=== PATIENT | female | born 1940 | race Caucasian/White ===

== ENCOUNTER → 2019-05-27 09:35 | Outpatient (BNVA) | payer MEDICARE, OTHER, SELFPAY | PROVIDERS: Family Provider Nurse Practitioner; PCP Nurse Practitioner; Visit Provider Nurse Practitioner | DX: I10 Essential (primary) hypertension (principal); F32.9 Major depressive disorder, single episode, unspecified; F41.9 Anxiety disorder, unspecified | CPT/HCPCS: 80053; 82607; 84443 ==

== ENCOUNTER → 2019-10-01 11:42 | Outpatient (BNVA) | payer MEDICARE, OTHER, SELFPAY | PROVIDERS: Family Provider Nurse Practitioner; PCP Nurse Practitioner; Visit Provider Nurse Practitioner | DX: I10 Essential (primary) hypertension (principal); F41.9 Anxiety disorder, unspecified; I49.9 Cardiac arrhythmia, unspecified | CPT/HCPCS: 80053; 80061; 85025 ==

== ENCOUNTER → 2019-12-14 15:19 | Outpatient (BNVA) | payer MEDICARE, OTHER, SELFPAY | PROVIDERS: Family Provider Nurse Practitioner; PCP Nurse Practitioner; Visit Provider Nurse Practitioner | DX: I10 Essential (primary) hypertension (principal); E78.5 Hyperlipidemia, unspecified; F32.9 Major depressive disorder, single episode, unspecified; F41.9 Anxiety disorder, unspecified; I49.9 Cardiac arrhythmia, unspecified; R41.3 Other amnesia; M79.10 Myalgia, unspecified site | CPT/HCPCS: 80053; 80061; 81000; 84443; 85025 ==

== ENCOUNTER → 2019-12-16 09:55 | Outpatient (BNVA) | payer MEDICARE, OTHER, SELFPAY | PROVIDERS: Family Provider Nurse Practitioner; PCP Nurse Practitioner; Visit Provider Nurse Practitioner | DX: M79.10 Myalgia, unspecified site (principal); I10 Essential (primary) hypertension; R41.3 Other amnesia; I49.9 Cardiac arrhythmia, unspecified; F41.9 Anxiety disorder, unspecified; M47.896 Other spondylosis, lumbar region | CPT/HCPCS: 72100; 73522; 82607 ==

== ENCOUNTER → 2020-03-18 13:48 | Outpatient (BNVA) | payer MEDICARE, OTHER, SELFPAY | PROVIDERS: Family Provider Nurse Practitioner; PCP Nurse Practitioner; Visit Provider Nurse Practitioner | DX: I10 Essential (primary) hypertension (principal); I49.9 Cardiac arrhythmia, unspecified; R41.3 Other amnesia; F41.9 Anxiety disorder, unspecified | CPT/HCPCS: 80053; 80061; 84443; 85025 ==

== ENCOUNTER → 2020-04-06 16:33 | Outpatient (BNVA) | payer MEDICARE, OTHER, SELFPAY | PROVIDERS: Family Provider Nurse Practitioner; PCP Nurse Practitioner; Visit Provider Nurse Practitioner Family | DX: S99.921A Unspecified injury of right foot, initial encounter (principal); M79.671 Pain in right foot; S99.911A Unspecified injury of right ankle, initial encounter; M25.571 Pain in right ankle and joints of right foot; W19.XXXA Unspecified fall, initial encounter | CPT/HCPCS: 73610; 73630 ==

== ENCOUNTER 2020-04-14 14:33 | Outpatient (CLI) | payer MEDICARE, OTHER, SELFPAY | END 2020-04-14 14:34 | disposition home or self-care (01) | LOC: SPT 14:35 | PROVIDERS: Family Provider Nurse Practitioner; PCP Nurse Practitioner; Visit Provider Orthopaedic Surgery | DX: Z46.89 Encounter for fitting and adjustment of other specified devices (principal); S82.831D Other fracture of upper and lower end of right fibula, subsequent encounter for closed fracture with routine healing; X58.XXXD Exposure to other specified factors, subsequent encounter | CPT/HCPCS: 97760; L4361 ==

== ENCOUNTER 2020-04-23 13:16 | Emergency (ER) | payer MEDICARE, OTHER, SELFPAY ==
[2020-04-23 13:18] VITALS: BP 218/103; PULSE 72; RESP 18; TEMP 37.2; O2SAT 96; BMI 29.2
--- NOTE | 2020-04-23 13:21 | W.ED.LOWEXIN ---
HPI - Extremity Injury (Lower) General: Chief Complaint: Extremity Injury, Lower Stated Complaint: RLE SWELLING/STEPPED IN HOLE 3 WKS AGO Time Seen by Provider: 04/23/20 13:21 Source: patient Mode of arrival: ambulatory Limitations: no limitations History of Present Illness: HPI Narrative: 80-year-old female comes in today with increased pain and swelling to the right lower leg. Patient 3 weeks ago had stepped in a hole and injured the leg. Patient been seen by her primary care provider who did x-rays at that time it was noted that she had a distal fibular fracture. Patient had seen the orthopedics physician Dr. Byrd whom has placed patient in a walking boot. Patient was recommended to limit walking and to follow-up in 2 to 3 weeks for recheck. Patient comes in today for concerns of increased swelling and tenderness and pain to the extremity. Patient appears well. Patient appears no acute distress. Review of Systems General: Reports: 10 or more systems reviewed and unremarkable except in HPI and below Musc: Reports: other (Right lower extremity pain and swelling.) PFS ED PFSH: Medical History (Updated 04/23/20 @ 14:10 by SUKHDEEP Bee) Anxiety and depression Dyslipidemia Enrolled in chronic care management Essential (primary) hypertension History of pulmonary embolism Ventricular arrhythmia Surgical History Chronic obstructive lung disease H/O: hysterectomy without BSO History of appendectomy History of esophageal dilatation Hx of tonsillectomy Family History Other CAD (coronary artery disease) Cancer Social History Smoking and tobacco status: never smoked Second hand smoke exposure: No Smoking risk assessment/counseling performed?: No Alcohol intake: never Desire information about alcohol rehabilitation?: No Counseling given: No Desire information about substance/drug rehabilitation?: No Counseling given: No Adopted: No Caregiver/support person: No Lives independently: Yes Household members: friend(s) Housing: House Marital status: / Number of children: 1 service: No Current occupational status: retired Pets and animals: Yes Pets & animals: cat(s) and dog(s) History of recent travel: No Current gender identity: Female Physical Exam Const: COMMON NORMALS: no acute distress and patient oriented x3 GENERAL APPEARANCE: cooperative HENMT: COMMON NORMALS: normocephalic and Normal external nose present HEAD & SCALP: normal to inspection and normocephalic NOSE: Normal external nose present MOUTH: Normal oral and palatal mucosa present Eye: GENERAL EYE: appearance normal, both eyes and all related structures Neck/C-Spine: COMMON NORMALS: full ROM Chest: COMMONS NORMALS: normal inspection of the chest Resp: COMMON NORMALS: normal respiratory effort EFFORT & INSPECTION: Yes able to speak in complete sentences Cardio: COMMON NORMALS: regular rate and regular rhythm RATE: regular rate RHYTHM: regular rhythm GI: COMMON NORMALS: non-tender Back/Pelvis: COMMON NORMALS: thoracic and lumbar spine normal to inspection Extremity: NARRATIVE EXTREMITY EXAM: Swelling is noted to the right lower extremity. Good distal pulses are noted. Patient is guarded with movement. Patient appears well. Patient appears no acute distress. Neuro: COMMON NORMALS: patient oriented x3 and moves all extremities Psych: COMMON NORMALS: mental status grossly normal and cooperative Skin: COMMON NORMALS: no rashes or lesions noted GENERAL SKIN EXAM: no rashes or lesions noted Course Vital Signs: Vital signs: Vital Signs Temperature 99 F 04/23/20 13:18 Pulse Rate 72 04/23/20 13:18 Respiratory Rate 18 04/23/20 13:18 Blood Pressure 218/103 04/23/20 13:18 Pulse Oximetry 96 04/23/20 13:18 MDM - Extremity Injury (Lower) MDM Narrative: Medical decision making narrative: 80-year-old female comes in with persistent pain to the right lower extremity. Review of the record noted patient has a fracture to the distal fibula on the extremity. Exam notes some swelling and some tenderness at the proximal fibula also. Differential diagnosis includes not limited to fracture, DVT, uncontrolled pain. When I had repeated the x-ray of the tib-fib to make sure there is no other injury noted. It was noted the patient has a proximal fibula fracture also. Ultrasound of the extremity to rule out DVT was noted to be negative of any blood clot. Patient was given 1 hydrocodone which seemed to relieve her pain. Patient be continued on hydrocodone. Discussed with Dr. Hahn who agreed to plan of knee immobilizer and follow-up with orthopedist. Reviewed this with patient and patient's family member, daughter, who agreed to plan and treatment. Discharge Plan Discharge Patient Disposition: Home Clinical Impression: Fracture closed, fibula, shaft Qualifiers: Encounter type: subsequent encounter Fracture morphology: unspecified fracture morphology Laterality: right Fracture healing: with delayed healing Qualified Code(s): S82.401G - Unspecified fracture of shaft of right fibula, subsequent encounter for closed fracture with delayed healing Condition: Stable Prescriptions: New hydrocodone-acetaminophen 5-325 mg tablet 1 tab PO Q6H PRN (Reason: pain) Qty: 20 RF: 0 No Action nitroglycerin [Nitrostat] 0.4 mg tablet, sublingual 0.4 mg SUBLINGUAL Q5M PRNRF: 0 amlodipine [Norvasc] 2.5 mg tablet 2.5 mg PO DAILY Qty: 30 RF: 2 Eliquis 2.5 mg tablet 2.5 mg PO BID Qty: 60 RF: 2 donepezil [Aricept] 5 mg tablet 5 mg PO .at bedtime Qty: 30 RF: 2 furosemide [Lasix] 20 mg tablet 20 mg PO QAM Qty: 30 RF: 2 sertraline 100 mg tablet 100 mg PO QDAY Qty: 30 RF: 2 metoprolol tartrate 25 mg tablet 25 mg PO BID Qty: 60 RF: 2 potassium chloride 8 mEq capsule, extended release 8 meq PO DAILY Qty: 30 RF: 2 (DME) CAM Boot See Rx Instructions .Route .MEDSUPPLY Qty: 1 RF: 0 Discharge Orders: Discharge ED (Routine); Ordered 04/23/20 Ordered By: Justin Payan Referrals: Ed Michael, SURGICAL SCHEDULER-C [Primary Care Provider] - Discharge Diet: Usual diet Discharge Activity: Limit activity as instructed Activity Restrictions/Additional Instructions: Avoid use of the extremity. Avoid weightbearing to the extremity. Use wheelchair to help ambulate and move around. Wear orthopedic splints as directed. Contact Dr. Byrd's office, orthopedic office, on Saturday for follow-up appointment. Do not weight-bear until cleared by him to weight-bear. Return to the emergency department for new concerns. Coding Level of Care Code ED Animal Geneticist for [facility] Fwd Exam Comprehensive
--- NOTE | 2020-04-23 13:28 | USR_ITS ---
PROCEDURE INFORMATION: Exam: US Duplex Right Lower Extremity Veins, Limited Exam date and time: 04/23/2020 1:47 PM Age: 80 years old Clinical indication: Swelling (edema) of limb; Lower extremity, right; Patient HX: Patient has fibular fracture x 3 weeks; Additional info: Swelling, increase pain, has fibular fracture x3 weeks TECHNIQUE: Imaging protocol: Real-time Duplex ultrasound of the Right Lower Extremity with 2-D temple scale, color Doppler flow and spectral waveform analysis with image documentation. Limited exam was focused on the right lower extremity veins. COMPARISON: No relevant prior studies available. FINDINGS: Right deep veins: Unremarkable. The common femoral, femoral, proximal profunda femoral and popliteal veins are patent without thrombus. Normal Doppler waveforms. Normal compressibility and/or augmentation response. Right superficial veins: Unremarkable. Saphenofemoral junction is patent without thrombus. Soft tissues: Unremarkable. US/[place] [id number] IMPRESSION: No evidence of deep vein thrombosis in the submitted images.
--- NOTE | 2020-04-23 13:28 | XRR_ITS ---
PROCEDURE INFORMATION: Exam: XR Right Tibia and Fibula Exam date and time: 04/23/2020 1:47 PM Age: 80 years old Clinical indication: Injury or trauma; Fall; Blunt trauma; Knee and ankle; Right; Additional info: Fracture distal fibula TECHNIQUE: Imaging protocol: XR Right tibia and fibula. Views: 2 views. COMPARISON: No relevant prior studies available. FINDINGS: Bones/joints: Moderate degenerative changes medial compartment of the right knee. Mildly comminuted and minimally displaced fracture involving the proximal aspect of the right fibula. obliquely oriented fracture involving the distal fibular metadiaphysis extending caudally to the level of the tibial plafond. Minimally displaced. Soft tissue swelling. Soft tissues: See Bones/joints finding. XR/XR tibia fibula RT 2V [id number] IMPRESSION: 1. Mildly comminuted and minimally displaced fracture involving the proximal aspect of the right fibula. 2. Obliquely oriented fracture involving the distal fibular metadiaphysis extending caudally to the level of the tibial plafond. Minimally displaced. Soft tissue swelling. Correlate with dedicated imaging of the ankle.
[2020-04-23] MEDS: HYDROcodone-acetaminophen 5-325 mg Tablet 1 TAB PO (13:36)
[2020-04-23 14:27] VITALS: BP 201/106; PULSE 69; RESP 17; O2SAT 95
--- NOTE | 2020-04-25 08:18 | DCPLANNER ---
Addendum entered by Lisseth Jesus 04/25/20 13:55: Danielle from ortho called adult protective caseworker stating that patient declined visit at this time, has an appointment scheduled for later on this month. Original Note: dietary manager had message to schedule a follow up appointment for patient with ortho. dietary manager called the ortho clinic, spoke with Ana Luisa, gave clinic patients information. dietary manager was told that patients information would be printed and reviewed. Clinic will call patient with appointment information.
== END 2020-04-23 14:28 | disposition home or self-care (01) ==
PROVIDERS: Emergency Provider Nurse Practitioner Family; PCP Nurse Practitioner
DX: S82.401A Unspecified fracture of shaft of right fibula, initial encounter for closed fracture (principal); Z79.01 Long term (current) use of anticoagulants; I10 Essential (primary) hypertension; J44.9 Chronic obstructive pulmonary disease, unspecified; E78.5 Hyperlipidemia, unspecified; X58.XXXA Exposure to other specified factors, initial encounter; M79.89 Other specified soft tissue disorders
CPT/HCPCS: 12345; 29530; 73590; 93971; 99281; 99283

== ENCOUNTER → 2020-05-19 13:38 | Outpatient (BNVA) | payer MEDICARE, OTHER, SELFPAY | PROVIDERS: PCP Nurse Practitioner; Visit Provider Orthopaedic Surgery | DX: S82.61XA Displaced fracture of lateral malleolus of right fibula, initial encounter for closed fracture (principal); X58.XXXA Exposure to other specified factors, initial encounter; Z46.89 Encounter for fitting and adjustment of other specified devices; S82.61XD Displaced fracture of lateral malleolus of right fibula, subsequent encounter for closed fracture with routine healing; X58.XXXD Exposure to other specified factors, subsequent encounter | CPT/HCPCS: 73610; 97760; L1902 ==

== ENCOUNTER 2020-05-19 14:06 | Outpatient (CLI) | payer MEDICARE, OTHER, SELFPAY | END 2020-05-19 14:07 | disposition home or self-care (01) | LOC: SPT 14:06 | PROVIDERS: PCP Nurse Practitioner; Visit Provider Orthopaedic Surgery | DX: Z46.89 Encounter for fitting and adjustment of other specified devices (principal); S82.61XD Displaced fracture of lateral malleolus of right fibula, subsequent encounter for closed fracture with routine healing; X58.XXXD Exposure to other specified factors, subsequent encounter | CPT/HCPCS: 97760; L1902 ==

== ENCOUNTER 2020-06-28 15:17 | Emergency (ER) | payer MEDICARE, OTHER, SELFPAY ==
[2020-06-28 15:26] VITALS: BP 163/74; PULSE 81; RESP 24; TEMP 36.6; O2SAT 98; BMI 26.1
--- NOTE | 2020-06-28 15:37 | ECG_ITS ---
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 Measurements Intervals [place] Rate: 76 P: 38 CT: 140 QRS: 0 QRSD: 92 T: 33 QT: 370 QTc: 416 Interpretive Statements SINUS RHYTHM LEFT VENTRICULAR HYPERTROPHY AND ST-T CHANGE [VOLTAGE CRITERIA PLUS ST/T ABNORMALITY] POSSIBLE INFERIOR MYOCARDIAL INFARCTION [30 ms Q WAVE IN II/aVF], PROBABLY OLD Compared to ECG 02/02/2018 18:24:12 Left ventricular hypertrophy now present ST (T wave) deviation now present Myocardial infarct finding now present Ventricular premature complex(es) no longer present T-wave abnormality no longer present Electronically Signed On 06-28-2020 17:30:56 THREAD CLIPPER by Xavier Ortiz M.D. [id number]
--- NOTE | 2020-06-28 15:37 | XR_ITS ---
WS: [id number] Exam: XR chest 1V portable [id number] Date/Time of Exam: 06/28/2020 3:41 PM Reason For Exam: dyspnea Comparison 02/02/2018. The lungs are clear and fully inflated. Cardiomediastinal structures are unremarkable. Ectasia of the thoracic aorta. No pleural effusions. Bony structures are intact. XR/XR chest 1V portable [id number] IMPRESSION: 1. No acute cardiopulmonary finding.
--- NOTE | 2020-06-28 15:48 | ED_ITS ---
HPI - Chest Pain General: Chief Complaint: Chest Pain Stated Complaint: L SIDE PAIN Time Seen by Provider: 06/28/20 15:37 History of Present Illness: HPI narrative: The patient is an 80-year-old female with heart problems who comes to the ER complaining of left sided lower rib pain since this morning she. She said she got up from bed and walked to the living room area and she felt a pop in her right lower rib and began to have severe pain that is worsening throughout the day. It hurts to breathe and is tender over the area. She also has a history of PEs on Eliquis and she takes Lasix. Also hypertension she denies ever having a myocardial infarction. She is a poor historian of her medical history Onset: during rest and during exertion Pain radiation: none Quality: sharp Exacerbating factors: inspiration and movement Associated symptoms: Reports no associated symptoms; Deny abdominal pain, dyspnea or palpitations Review of Systems General: Reports: 10 or more systems reviewed and unremarkable except in HPI and below Const: Denies: fatigue Eyes: Denies: change in vision, blurry vision or eye redness ENMT: Denies: throat pain, swelling of lips/tongue, ear or mastoid pain or nasal congestion Card: Denies: chest pain, palpitations, irregular heart rhythm, edema, dyspnea on exertion or orthopnea Resp: Denies: dyspnea, productive cough or non-productive cough GI: Denies: abdominal pain, diarrhea or GI cramping : Denies: flank pain, difficulty voiding, urinary frequency or urinary urgency Musc: Denies: neck pain, back pain, extremity pain, joint pain, joint redness, limited range of motion or muscle weakness Skin/Breast: Denies: rash, pruritus, erythema, skin pain or skin tenderness Neuro: Denies: headache(s), numbness in extremities, weakness in extremities, sensory changes, difficulty walking, dizziness, confusion or Slurred speech present Psych: Denies: anxiety or depression Endo: Denies: polyuria All/Imm: Denies: urticaria, throat swelling or tongue swelling PFSH ED PFSH: Medical History (Updated 06/28/20 @ 19:06 by Narciso Millan MD) Anxiety and depression Dyslipidemia Enrolled in chronic care management Essential (primary) hypertension History of pulmonary embolism Ventricular arrhythmia Surgical History Chronic obstructive lung disease H/O: hysterectomy without BSO History of appendectomy History of esophageal dilatation Hx of tonsillectomy Family History Other CAD (coronary artery disease) Cancer Social History Smoking and tobacco status: never smoked Second hand smoke exposure: No Smoking risk assessment/counseling performed?: No Alcohol intake: never Desire information about alcohol rehabilitation?: No Counseling given: No Desire information about substance/drug rehabilitation?: No Counseling given: No Adopted: No Caregiver/support person: No Lives independently: Yes Household members: friend(s) Housing: House Marital status: / Number of children: 1 service: No Current occupational status: retired Pets and animals: Yes Pets & animals: cat(s) and dog(s) History of recent travel: No Current gender identity: Female Physical Exam Const: COMMON NORMALS: no acute distress, average body habitus, patient oriented x3, no limitations, healthy appearing, alert and well nourished GENERAL APPEARANCE: cooperative, comfortable, well kempt and well developed ORIENTATION/CONSCIOUSNESS: Yes awake, Yes oriented to person, Yes oriented to place and Yes oriented to time HENMT: COMMON NORMALS: normocephalic, external ears normal and Normal external nose present HEAD & SCALP: normal to inspection and normocephalic NOSE: Normal external nose present EXTERNAL EAR: Yes external ears normal MOUTH: Normal oral and palatal mucosa present THROAT: posterior oropharynx normal Eye: COMMON NORMALS: Equal, round and reactive pupils present and EOMs intact bilaterally GENERAL EYE: appearance normal, both eyes and all related structures PUPIL: Yes Equal, round and reactive pupils present Neck/C-Spine: COMMON NORMALS: full ROM, no lymphadenopathy, no meningeal signs and no JVD GENERAL: Yes normal visual inspection Lymph: LYMPHATIC: no lymphadenopathy noted Chest: COMMONS NORMALS: normal inspection of the chest OTHER: Tenderness to the left lateral 10th rib likely floating rib pain. Resp: COMMON NORMALS: normal respiratory effort, No retractions, No use of accessory muscles, clear to auscultation bilaterally and percussion normal EFFORT & INSPECTION: Yes able to speak in complete sentences AUSCULTATION: clear to auscultation bilaterally PERCUSSION: percussion normal Cardio: COMMON NORMALS: no JVD, regular rate, regular rhythm, S1 normal heart sound present, S2 normal heart sound present and Peripheral pulses 2+ throughout RATE: regular rate RHYTHM: regular rhythm HEART SOUNDS: S1 normal heart sound present and S2 normal heart sound present PERIPHERAL PULSES: Peripheral pulses 2+ throughout GI: COMMON NORMALS: Normal to inspection, nondistended, normoactive bowel sounds present, Soft to palpation, non-tender and no masses INSPECTION: Yes normal to inspection PALPATION: Yes Soft to palpation : COMMON NORMALS: Yes no CVA tenderness BLADDER/KIDNEY EXAM: Yes no CVA tenderness Back/Pelvis: COMMON NORMALS: no CVA tenderness, thoracic and lumbar spine normal to inspection, no thoracic nor lumbar tenderness and thoraco-lumbar ROM normal Extremity: COMMON NORMALS: normal to inspection, full ROM, capillary refill normal, no joint enlargement and no pedal edema GENERAL: Yes normal exam except as noted Neuro: COMMON NORMALS: patient oriented x3, CN's II-XII intact bilaterally, moves all extremities, no focal motor deficits, no sensory deficits noted and gait normal SENSORIUM/ORIENTATION: Yes alert, Yes oriented to person, Yes oriented to place and Yes oriented to time MENINGEAL SIGNS: Yes no meningeal signs Psych: COMMON NORMALS: mental status grossly normal, Normal thought process present, cooperative, normal affect and speech normal APPEARANCE: Yes well kempt ATTITUDE: Yes calm SPEECH: Yes normal speech THOUGHT PROCESS: Nor mal thought process present Skin: COMMON NORMALS: no rashes or lesions noted GENERAL SKIN EXAM: no rashes or lesions noted Course Vital Signs: Vital signs: Vital Signs Temperature 97.8 F 06/28/20 15:26 Pulse Rate 77 06/28/20 19:00 Respiratory Rate 17 06/28/20 19:00 Blood Pressure 179/109 06/28/20 19:00 Pulse Oximetry 95 06/28/20 19:00 MDM - Chest Pain MDM Narrative: Medical decision making narrative: The patient came to the ER complaining of left lower rib pain. D-dimer was elevated as well. Cardiac work-up was negative. CT angiogram was normal. Placed case management referral to get an outpatient cardiology work-up. Primary care in a couple days. ER with worsening symptoms. Lab Data: Labs: Lab Results 06/28/20 06/28/20 06/28/20 Range/Units 16:00 16:00 16:00 WBC 7.2 (4.0-10.0) 10^3/ uL RBC 4.20 (4.1-5.3) 10^6/u L Hgb 13.1 (11.5-15.3) g/dL Hct 40.5 (37.0-47.0) % MCV 96.4 (81-99) fL MCH 31.2 (28.0-34.0) pg MCHC 32.3 (30.0-36.0) g/dL RDW 13.6 (12.1-15.1) % Plt Count 198 (130-400) 10^3/c mm MPV 11.1 H (7.4-10.4) fL Neut % (Auto) 58.1 % Lymph % (Auto) 28.5 % Gall[place] % (Auto) 10.9 % Eos % (Auto) 2.0 % Baso % (Auto) 0.4 % Neut # (Auto) 4.15 (1.8-7.7) 10^3/u L Lymph # (Auto) 2.0 (0.8-4.8) 10^3/u L Gall[place] # (Auto) 0.8 (0.2-0.9) 10^3/u L Eos # (Auto) 0.1 (0.0-0.8) 10^3/u L Baso # (Auto) 0.0 (0.0-0.1) 10^3/u L Nucleated RBC % (a uto) 0 % Nucleated RBCs # 0.0 /100WBC D-Dimer 1.72 H (0-0.59) ug/mIFE U Sodium 141 (136-145) mmol/L Potassium 3.8 (3.5-5.1) mmol/L Chloride 104 (98-107) mmol/L Carbon Dioxide 28 (22-29) mmol/L Anion Gap 12.8 (5-19) BUN 19 (8-23) mg/dL Creatinine 1.1 H (0.5-0.9) mg/dL GFR Calculation Not Reportable Glucose 118 H (65-115) mg/dL Calculated Osmolal ity 295 (285-295) mOsm/k g Calcium 9.4 (8.5-10.5) mg/dL Total Bilirubin 0.4 (0.15-1.2) mg/dL AST 16 (0-32) U/L ALT 8 (0-33) U/L Alkaline Phosphata se 134 H (35-105) IU/L Troponin T Baselin e (0-10) ng/L Troponin T 120 Min ayo (0-10) ng/L Delta Troponin T (0-10) ABS# NT-Pro-B Natriuret Pep 615 H (0-450) pg/mL Total Protein 7.0 (6.6-8.7) g/dL Albumin 4.2 (3.5-5.2) g/dL Globulin 2.8 (1.3-4.6) g/dL 06/28/20 06/28/20 Range/Units 16:00 17:22 WBC (4.0-10.0) 10^3/ uL RBC (4.1-5.3) 10^6/u L Hgb (11.5-15.3) g/dL Hct (37.0-47.0) % MCV (81-99) fL MCH (28.0-34.0) pg MCHC (30.0-36.0) g/dL RDW (12.1-15.1) % Plt Count (130-400) 10^3/c mm MPV (7.4-10.4) fL Neut % (Auto) % Lymph % (Auto) % [place] % (Auto) % Eos % (Auto) % Baso % (Auto) % Neut # (Auto) (1.8-7.7) 10^3/u L Lymph # (Auto) (0.8-4.8) 10^3/u L [place] # (Auto) (0.2-0.9) 10^3/u L Eos # (Auto) (0.0-0.8) 10^3/u L Baso # (Auto) (0.0-0.1) 10^3/u L Nucleated RBC % (a uto) % Nucleated RBCs # /100WBC D-Dimer (0-0.59) ug/mIFE U Sodium (136-145) mmol/L Potassium (3.5-5.1) mmol/L Chloride (98-107) mmol/L Carbon Dioxide (22-29) mmol/L Anion Gap (5-19) BUN (8-23) mg/dL Creatinine (0.5-0.9) mg/dL GFR Calculation Glucose (65-115) mg/dL Calculated Osmolal ity (285-295) mOsm/k g Calcium (8.5-10.5) mg/dL Total Bilirubin (0.15-1.2) mg/dL AST (0-32) U/L ALT (0-33) U/L Alkaline Phosphata se (35-105) IU/L Troponin T Baselin e 15 H (0-10) ng/L Troponin T 120 Min ayo 12.94 H (0-10) ng/L Delta Troponin T -2.06 L (0-10) ABS# NT-Pro-B Natriuret Pep (0-450) pg/mL Total Protein (6.6-8.7) g/dL Albumin (3.5-5.2) g/dL Globulin (1.3-4.6) g/dL Discharge Plan Discharge Patient Disposition: Home Clinical Impression: Pain in rib Condition: Stable Prescriptions: New cyclobenzaprine 5 mg tablet 5 mg PO TID PRN (Reason: muscle spasm) Qty: 10 RF: 0 No Action nitroglycerin [Nitrostat] 0.4 mg tablet, sublingual 0.4 mg SUBLINGUAL Q5M PRN (Reason: CHEST PAINS) RF: 0 Eliquis 2.5 mg tablet 2.5 mg PO BID Qty: 60 RF: 2 metoprolol tartrate 25 mg tablet 25 mg PO BID Qty: 60 RF: 2 mupirocin 2 % ointment 1 applic topical TID 7 Days Qty: 15 RF: 0 (DME) CAM Boot See Rx Instructions .Route .MEDSUPPLY Qty: 1 RF: 0 (DME) lace up ankle brace See Rx Instructions .Route .MEDSUPPLY Qty: 1 RF: 0 cephalexin 500 mg capsule 500 mg PO Q12H 10 Days Qty: 20 RF: 0 sertraline 100 mg tablet 100 mg PO BEDTIME RF: 0 Lasix 20 mg tablet 20 mg PO DAILY RF: 0 Discharge Orders: Discharge ED (Routine); Ordered 06/28/20 Ordered By: Narciso Millan Referrals: Ed Michael, DONOR SERVICES TECHNICIAN-C [Primary Care Provider] - Discharge Diet: Advance as tolerated Discharge Activity: Resume usual activity Patient Instructions: Chest Pain - Chest Wall, Opioid Safety Activity Restrictions/Additional Instructions: You are having pain of your lower ribs on the left side. Please take the muscle relaxer to help with this pain and be where it might make you a little unsteady on your feet and you may fall. Please take it at night to help you sleep and take Tylenol during the daytime to help with your pain. Return to the ER with worsening symptoms otherwise follow-up with your primary care physician in a few days. I have placed a case management referral to help you get an appointment with a wafer fabrication operator as you may also want to set up with them. Coding Level of Care Code ED Technician Semiconductor Development for [employer] Fwd Exam Comprehensive
[2020-06-28] MEDS: cyclobenzaprine 10 mg Tablet 5 MG PO (16:21)
[2020-06-28] MEDS: aspirin 81 mg Chew Tablet 324 MG PO (16:21)
[2020-06-28 16:23] LABS: Basophils % 0.4 %; Eosinophils # 0.1 10^3/uL (0.0-0.8); Hematocrit 40.5 % (37.0-47.0); Hemoglobin 13.1 g/dL (11.5-15.3); Lymphocytes % 28.5 %; Mean Corpuscular HGB Conc 32.3 g/dL (30.0-36.0); Mean Corpuscular Hemoglobin 31.2 pg (28.0-34.0); Mean Corpuscular Volume 96.4 fL (81-99); Mean Platelet Volume 11.1 fL (7.4-10.4); Monocytes # 0.8 10^3/uL (0.2-0.9); Monocytes % 10.9 %; Neutrophils # 4.15 10^3/uL (1.8-7.7); Neutrophils % 58.1 %; Nucleated Red Blood Cells % 0 %; Platelet Count 198 10^3/cmm (130-400); Red Cell Distribution Width 13.6 % (12.1-15.1); White Blood Count 7.2 10^3/uL (4.0-10.0)
[2020-06-28 16:26] VITALS: PULSE 79; RESP 16; O2SAT 96
[2020-06-28 16:31] LABS: D Dimer 1.72 ug/mIFEU (0-0.59)
[2020-06-28 16:33] LABS: Troponin(5th) Baseline 15 ng/L (0-10)
[2020-06-28 16:41] LABS: Alanine Aminotransferase 8 U/L (0-33); Albumin Level 4.2 g/dL (3.5-5.2); Alkaline Phosphatase 134 IU/L (35-105); Anion Gap 12.8 (5-19); Aspartate Amino Transferase 16 U/L (0-32); Blood Urea Nitrogen 19 mg/dL (8-23); Calcium 9.4 mg/dL (8.5-10.5); Carbon Dioxide 28 mmol/L (22-29); Chloride 104 mmol/L (98-107); Globulin 2.8 g/dL (1.3-4.6); Glucose 118 mg/dL (65-115); NT Pro B Type Natriuretic Pept 615 pg/mL (0-450); Osmolality Calculated 295 mOsm/kg (285-295); Potassium 3.8 mmol/L (3.5-5.1); Sodium 141 mmol/L (136-145); Total Bilirubin 0.4 mg/dL (0.15-1.2)
--- NOTE | 2020-06-28 17:37 | ECG_ITS ---
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1940 Requested By: Narciso Millan Order Number: [id number] Reading MD: FREDA TAMAYO Measurements Intervals [place] Rate: 72 P: 57 [place]: 172 QRS: 1 QRSD: 91 T: 31 QT: 409 QTc: 451 Interpretive Statements SINUS RHYTHM WITH OCCASIONAL SUPRAVENTRICULAR PREMATURE COMPLEXES Compared to ECG 06/28/2020 15:35:16 Left ventricular hypertrophy no longer present ST (T wave) deviation no longer present Myocardial infarct finding no longer present Electronically Signed On 06-29-2020 20:09:15 CHILD CARE NURSE by FREDA TAMAYO [id number]
[2020-06-28 17:41] VITALS: BP 173/107; PULSE 69; RESP 19; O2SAT 95
[2020-06-28 17:45] LABS: Troponin 5 2HR 12.94 ng/L (0-10)
--- NOTE | 2020-06-28 17:50 | CTR_ITS ---
PROCEDURE INFORMATION: Exam: CT Angiography Chest With Contrast Exam date and time: 06/28/2020 5:59 PM Age: 80 years old Clinical indication: Chest pain; Additional info: R/O pe TECHNIQUE: Imaging protocol: Computed tomographic angiography of the chest with contrast. 3D rendering (Not supervised by radiologist): MIP and/or 3D reconstructed images were created by the technologist. Radiation optimization: All CT scans at this facility use at least one of these dose optimization techniques: automated exposure control; mA and/or kV adjustment per patient size (includes targeted exams where dose is matched to clinical indication); or iterative reconstruction. Contrast material: VISI; Contrast volume: 71 ml; Contrast route: INTRAVENOUS (IV); COMPARISON: CR XR chest 1V portable [id number] 06/28/2020 3:56 PM RADIATION DOSE METRICS: Total DLP (mGy-cm): 549.36 FINDINGS: Pulmonary arteries: Normal. No pulmonary emboli. Aorta: Unremarkable. No aortic aneurysm. No aortic dissection. Lungs: Moderate emphysema. No focal acute pulmonary consolidation. No endobronchial obstruction. Pleural spaces: Unremarkable. No pneumothorax. No pleural effusion. Heart: Mild multichamber cardiac dilation. Negative for pericardial effusion. Mediastinal space: Mild hiatal hernia. Calcified granulomas in the mediastinum. Lymph nodes: Unremarkable. No enlarged lymph nodes. Spleen: Calcified granulomas in the spleen. Bones/joints: Moderate diffuse spondyloarthropathy of thoracic spine. No aggressive bone lesion. Anatomic alignment. No fractures. Soft tissues: Unremarkable. CT/CT angio chest PE protcl [id number] IMPRESSION: 1. Negative for pulmonary embolism. 2. No focal pneumonia. 3. Emphysematous changes of lungs. 4. Healed granulomatous disease. Radiation Dose CTDIVOL = (mGy): DLP = 549.36 (mGy-cm)
[2020-06-28] MEDS: iodixanol 320 mg/mL 100mL Btl IV (18:12)
[2020-06-28 18:19] LABS: Troponin 5 2HR Delta -2.06 ABS# (0-10)
[2020-06-28 19:00] VITALS: BP 179/109; PULSE 77; RESP 17; O2SAT 95
[2020-06-28 19:23] VITALS: BP 179/109; PULSE 79; RESP 15; O2SAT 94
--- NOTE | 2020-06-29 11:47 | DCPLANNER ---
branch services manager had message to schedule a follow up appointment for patient with heart care. branch services manager called heart care, spoke with Katerin, gave clinic patients information. A follow up appointment was scheduled for , June 30, 2020 at 11:[address] Solo. Patient is aware of appointment.
--- NOTE | 2020-07-27 11:10 | DCPLANNER ---
Patient had a follow up appointment scheduled for 06.30.[address] Solo at [facility] - patient attended appointment.
== END 2020-06-28 19:24 | disposition home or self-care (01) ==
PROVIDERS: Emergency Provider Family Medicine; PCP Nurse Practitioner
DX: R07.81 Pleurodynia (principal); Z79.01 Long term (current) use of anticoagulants; E78.5 Hyperlipidemia, unspecified; I10 Essential (primary) hypertension; Z86.711 Personal history of pulmonary embolism
CPT/HCPCS: 36415; 71045; 71275; 80053; 83880; 84484; 85025; 85378; 93005; 99284; Q9967

== ENCOUNTER 2020-10-11 11:08 | Emergency (ER) | payer MEDICARE, OTHER, SELFPAY ==
[2020-10-11] VITALS (11 sets, daily range): BP systolic 156–187; BP diastolic 101–117; PULSE 74–89; RESP 18–20; TEMP 36.8; O2SAT 92–97; BMI 24.2
--- NOTE | 2020-10-11 12:38 | XRR_ITS ---
PROCEDURE INFORMATION: Exam: XR Chest Exam date and time: 10/11/2020 12:48 PM Age: 80 years old Clinical indication: Condition or disease; Lung condition and disease; Other: Chf; Shortness of breath; Patient HX: HX of ovarian cancer; Additional info: Chf/dyspnea TECHNIQUE: Imaging protocol: XR of the chest. Views: 1 view. COMPARISON: CR XR chest 1V portable [id number] 06/28/2020 3:56 PM FINDINGS: Lungs: Unremarkable. No consolidation. Pleural spaces: Unremarkable. No pleural effusion. No pneumothorax. Heart/Mediastinum: Unremarkable. No cardiomegaly. Bones/joints: Unremarkable. XR/XR chest 1V portable [id number] IMPRESSION: No acute findings.
--- NOTE | 2020-10-11 12:40 | ECG_ITS ---
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 Measurements Intervals [place] Rate: 78 P: [place]: QRS: 10 QRSD: 88 T: 230 QT: 367 QTc: 418 Interpretive Statements ATRIAL FIBRILLATION WITH ABERRANT CONDUCTION OR VENTRICULAR PREMATURE COMPLEXES SEPTAL MYOCARDIAL INFARCTION [40+ ms Q WAVE IN V1/V2], PROBABLY OLD MODERATE T-WAVE ABNORMALITY, CONSIDER ANTEROLATERAL ISCHEMIA [-0.1+ mV T WAVE IN V3-V6] MODERATE T-WAVE ABNORMALITY, CONSIDER INFERIOR ISCHEMIA [-0.1+ mV T WAVE IN II/aVF] Compared to ECG 06/28/2020 18:33:04 Ventricular premature complex(es) now present Aberrant conduction of supraventricular beat(s) now present Myocardial infarct finding now present T-wave abnormality now present Possible ischemia now present Sinus rhythm no longer present Electronically Signed On 10-11-2020 17:06:05 CDT by Xavier Ortiz M.D. [id number]
--- NOTE | 2020-10-11 12:40 | ED_ITS ---
HPI - General Adult General: Chief complaint: General Medical Stated complaint: fatigue, weakness, no energy Time Seen by Provider: 10/11/20 12:35 History of Present Illness: HPI narrative: This patient presents to the emergency department is a 89-year-old female with a history of exertional dyspnea states that she gets really winded if she tries to walk anywhere. Review history and discussion with the patient she admits that she supposed to take Lasix but she does not regularly. Patient states she does have a history of congestive heart failure and admits that she has a few pounds of weight gain. Patient states she just lacks energy after she walks for a while she just gets worn out. Patient denies any specific chest pain. Will do medical evaluation treat as needed Associated symptoms: Reports dyspnea; Deny chest pain, headache(s), nausea, rash, palpitations or vomiting Review of Systems General: Reports: 10 or more systems reviewed and unremarkable except in HPI and below Const: Denies: fever(s), chills, body aches or fatigue Eyes: Denies: change in vision or blurry vision ENMT: Denies: throat pain, hoarseness or mouth pain Card: Denies: chest pain, palpitations, irregular heart rhythm, edema, swelling of feet/ankles or lightheadedness Resp: Reports: dyspnea; Denies: productive cough, non-productive cough, wheezing or pain on inspiration GI: Denies: abdominal pain, nausea or vomiting : Denies: flank pain, difficulty voiding, dysuria, urinary frequency, urinary urgency or urinary hesitancy Musc: Denies: neck pain, back pain, extremity pain, extremity swelling, joint pain, joint swelling, joint redness, joint warmth or limited range of motion Skin/Breast: Denies: rash, pruritus, erythema or skin tenderness Neuro: Denies: headache(s), numbness in extremities or weakness in extremities Psych: Denies: anxiety or depression PFSH ED PFSH: Medical History Anxiety and depression Dyslipidemia Enrolled in chronic care management Essential (primary) hypertension History of pulmonary embolism Ventricular arrhythmia Surgical History Chronic obstructive lung disease H/O: hysterectomy without BSO History of appendectomy History of esophageal dilatation Hx of tonsillectomy Family History Mother CAD (coronary artery disease) Cancer Sister CAD (coronary artery disease) Cancer Brother CAD (coronary artery disease) Cancer Father Cancer Chronic kidney disease (CKD) Daughter Cancer Chronic kidney disease (CKD) Family/Other Dementia Diabetes Denies family history of Clotting disorder Suicide Anesthesia complication Bleeding disorder Lung disease Stroke Social History Smoking and tobacco status: never smoked Second hand smoke exposure: No Smoking risk assessment/counseling performed?: No Alcohol intake: never Desire information about alcohol rehabilitation?: No Counseling given: No Desire information about substance/drug rehabilitation?: No Counseling given: No Adopted: No Caregiver/support person: No Lives independently: Yes Household members: friend(s) Housing: House Marital status: / Number of children: 1 service: No Current occupational status: retired Pets and animals: Yes Pets & animals: cat(s) and dog(s) History of recent travel: No Current gender identity: Female Physical Exam Const: COMMON NORMALS: no acute distress, average body habitus, patient oriented x3, no limitations, healthy appearing, alert and well nourished HENMT: COMMON NORMALS: normocephalic, atraumatic, hearing grossly normal bilaterally, external ears normal, EAC's normal, TM's normal bilaterally, Normal external nose present, Normal nasal mucous membranes and turbinates present, moist oral mucous membranes, oropharynx normal, dentition normal and gingiva normal HEAD & SCALP: normocephalic and atraumatic NOSE: Normal external nose present and Normal nasal mucous membranes and turbinates present EXTERNAL EAR: Yes external ears normal EXTERNAL AUDITORY CANAL: EAC's normal TYMPANIC MEMBRANE: TM's normal bilaterally Neck/C-Spine: COMMON NORMALS: full ROM, no lymphadenopathy, supple, no meningeal signs, no JVD, Thyroid normal and No carotid bruits THYROID: Thyroid normal Chest: COMMONS NORMALS: normal inspection of the chest, normal palpation of entire chest wall, normal inspection of the breasts and normal palpation of the breasts Breast/axilla inspection: Yes normal inspection of the breasts BREAST/AXILLA PALPATION: Yes normal palpation of the breasts Resp: COMMON NORMALS: normal respiratory effort, No retractions, No use of accessory muscles, clear to auscultation bilaterally and percussion normal AUSCULTATION: clear to auscultation bilaterally PERCUSSION: percussion normal Cardio: COMMON NORMALS: no JVD, regular rate, regular rhythm, S1 normal heart sound present, S2 normal heart sound present, No gallops present (Cardio), No clicks present (Cardio), No murmurs present (Cardio), No rub (Cardio) and Peripheral pulses 2+ throughout RATE: regular rate RHYTHM: regular rhythm HEART SOUNDS: S1 normal heart sound present and S2 normal heart sound present PERIPHERAL PULSES: Peripheral pulses 2+ throughout GI: COMMON NORMALS: Normal to inspection, nondistended, normoactive bowel sounds present, Soft to palpation, non-tender, No hepatosplenomegaly present, no masses and no bruits PALPATION: Yes Soft to palpation and Yes No hepatosplenomegaly present : COMMON NORMALS: Yes no CVA tenderness BLADDER/KIDNEY EXAM: Yes no CVA tenderness Back/Pelvis: COMMON NORMALS: no CVA tenderness, thoracic and lumbar spine normal to inspection, no thoracic nor lumbar tenderness, thoraco-lumbar ROM normal and straight leg raise negative bilaterally Extremity: COMMON NORMALS: normal to inspection, full ROM, capillary refill normal, no joint enlargement, no clubbing, cyanosis or edema, no calf tenderness and no pedal edema Neuro: COMMON NORMALS: patient oriented x3 SENSORIUM/ORIENTATION: Yes alert MENINGEAL SIGNS: Yes no meningeal signs Course Reevaluation(s): Reevaluation #1: Discussed at length with patient and family about findings in the emergency department. Offered CTA of the chest. Patient had CTA of the chest performed in June of this year that was negative for any acute findings other than emphysema changes. Patient does have a history of PE and is currently on Eliquis. Patient and family have declined any additional CT scan and request to be discharged home. They are agreeable to follow-up with primary care physician. And/or cardiology Dr. oSlo. Patient is to continue all medications. Patient is to follow-up with primary care physician and cardiology as needed. Patient should be scheduled for outpatient pulmonary function testing and outpatient cardiac stress test. Patient should return to the emergency department if symptoms fail to improve or worsen. Time: 16:00 Vital Signs: Vital signs: Vital Signs Temperature 98.2 F 10/11/20 12:01 Pulse Rate 79 06/08/21 15:44 Respiratory Rate 20 H 10/11/20 15:44 Blood Pressure 167/101 10/11/20 15:49 Pulse Oximetry 96 10/11/20 15:44 MDM - General Adult MDM Narrative: Medical decision making narrative: This patient presents to the emergency department is a 89-year-old female with a history of exertional dyspnea states that she gets really winded if she tries to walk anywhere. Review history and discussion with the patient she admits that she supposed to take Lasix but she does not regularly. Patient states she does have a history of congestive heart failure and admits that she has a few pounds of weight gain. Patient states she just lacks energy after she walks for a while she just gets worn out. Patient denies any specific chest pain. Discussed at length with patient and family about findings in the emergency department. Offered CTA of the chest. Patient had CTA of the chest performed in June of this year that was negative for any acute findings other than emphysema changes. Patient does have a history of PE and is currently on Eliquis. Patient and family have declined any additional CT scan and request to be discharged home. They are agreeable to follow-up with primary care physician. And/or cardiology Dr. Solo. Patient is to continue all medications. Patient is to follow-up with primary care physician and cardiology as needed. Patient should be scheduled for outpatient pulmonary function testing and outpatient cardiac stress test. Patient should return to the emergency department if symptoms fail to improve or worsen. Lab Data: Labs: Lab Results 10/11/20 10/11/20 10/11/20 Range/Units 13:00 13:00 13:00 WBC 2.6 L (4.0-10.0) 10^3/ uL RBC 4.02 L (4.1-5.3) 10^6/u L Hgb 12.4 (11.5-15.3) g/dL Hct 37.4 (37.0-47.0) % MCV 93.0 (81-99) fL MCH 30.8 (28.0-34.0) pg MCHC 33.2 (30.0-36.0) g/dL RDW 14.0 (12.1-15.1) % Plt Count 151 (130-400) 10^3/c mm MPV 11.4 H (7.4-10.4) fL Neut % (Auto) 42.9 % Lymph % (Auto) 37.3 % [place] % (Auto) 19.0 % Eos % (Auto) 0.4 % Baso % (Auto) 0.4 % Neut # (Auto) 1.13 L (1.8-7.7) 10^3/u L Lymph # (Auto) 1.0 (0.8-4.8) 10^3/u L [place] # (Auto) 0.5 (0.2-0.9) 10^3/u L Eos # (Auto) 0.0 (0.0-0.8) 10^3/u L Baso # (Auto) 0.0 (0.0-0.1) 10^3/u L Nucleated RBC % (a uto) 0 % Nucleated RBCs # 0.0 /100WBC PT 14.40 (12.1-14.9) SECO NDS INR 1.08 (0.8-1.2) APTT 34.6 (23.9-36.7) SECO NDS D-Dimer 1.83 H (0-0.59) ug/mIFE U Sodium 136 (136-145) mmol/L Potassium 3.6 (3.5-5.1) mmol/L Chloride 102 (98-107) mmol/L Carbon Dioxide 24 (22-29) mmol/L Anion Gap 13.6 (5-19) BUN 9 (8-23) mg/dL Creatinine 0.8 (0.5-0.9) mg/dL GFR Calculation Not Reportable Glucose 92 (65-115) mg/dL Calculated Osmolal ity 280 L (285-295) mOsm/k g Calcium 8.2 L (8.5-10.5) mg/dL Magnesium 2.1 (1.7-2.3) mg/dL Total Bilirubin 0.4 (0.15-1.2) mg/dL AST 19 (0-32) U/L ALT 7 (0-33) U/L Alkaline Phosphata se 95 (35-105) IU/L Troponin T Baselin e (0-10) ng/L Troponin T 120 Min [place] Delta Troponin T NT-Pro-B Natriuret Pep 1302 H (0-450) pg/mL Total Protein 7.3 (6.6-8.7) g/dL Albumin 4.0 (3.5-5.2) g/dL Globulin 3.3 (1.3-4.6) g/dL Urine Color (Yellow) Urine Appearance (CLEAR) Urine pH (5-7) Ur Specific Gravit y (1.005-1.030) Urine Protein (Negative) Urine Glucose (UA) (Normal) Urine Ketones (Negative) Urine Blood (Negative) Urine Nitrate (Negative) Urine Bilirubin (Negative) Urine Urobilinogen (Negative) mg/dL Ur Leukocyte Lainey ase (Negative) 10/11/20 10/11/20 10/11/20 Range/Units 13:00 14:00 14:57 WBC (4.0-10.0) 10^3/ uL RBC (4.1-5.3) 10^6/u L Hgb (11.5-15.3) g/dL Hct (37.0-47.0) % MCV (81-99) fL MCH (28.0-34.0) pg MCHC (30.0-36.0) g/dL RDW (12.1-15.1) % Plt Count (130-400) 10^3/c mm MPV (7.4-10.4) fL Neut % (Auto) % Lymph % (Auto) % [place] % (Auto) % Eos % (Auto) % Baso % (Auto) % Neut # (Auto) (1.8-7.7) 10^3/u L Lymph # (Auto) (0.8-4.8) 10^3/u L [place] # (Auto) (0.2-0.9) 10^3/u L Eos # (Auto) (0.0-0.8) 10^3/u L Baso # (Auto) (0.0-0.1) 10^3/u L Nucleated RBC % (a uto) % Nucleated RBCs # /100WBC PT (12.1-14.9) SECO NDS INR (0.8-1.2) APTT (23.9-36.7) SECO NDS D-Dimer (0-0.59) ug/mIFE U Sodium (136-145) mmol/L Potassium (3.5-5.1) mmol/L Chloride (98-107) mmol/L Carbon Dioxide (22-29) mmol/L Anion Gap (5-19) BUN (8-23) mg/dL Creatinine (0.5-0.9) mg/dL GFR Calculation Glucose (65-115) mg/dL Calculated Osmolal ity (285-295) mOsm/k g Calcium (8.5-10.5) mg/dL Magnesium (1.7-2.3) mg/dL Total Bilirubin (0.15-1.2) mg/dL AST (0-32) U/L ALT (0-33) U/L Alkaline Phosphata se (35-105) IU/L Troponin T Baselin e 15 H (0-10) ng/L Troponin T 120 Min [place] Cancelled Delta Troponin T Cancelled NT-Pro-B Natriuret Pep (0-450) pg/mL Total Protein (6.6-8.7) g/dL Albumin (3.5-5.2) g/dL Globulin (1.3-4.6) g/dL Urine Color Yellow (Yellow) Urine Appearance Clear (CLEAR) Urine pH 7 (5-7) Ur Specific Gravit y 1.005 (1.005-1.030) Urine Protein Neg (Negative) Urine Glucose (UA) Norm (Normal) Urine Ketones Negative (Negative) Urine Blood Neg (Negative) Urine Nitrate Negative (Negative) Urine Bilirubin Neg (Negative) Urine Urobilinogen Norm (Negative) mg/dL Ur Leukocyte Lainey ase Negative (Negative) 10/11/20 Range/Units 15:18 WBC (4.0-10.0) 10^3/ uL RBC (4.1-5.3) 10^6/u L Hgb (11.5-15.3) g/dL Hct (37.0-47.0) % MCV (81-99) fL MCH (28.0-34.0) pg MCHC (30.0-36.0) g/dL RDW (12.1-15.1) % Plt Count (130-400) 10^3/c mm MPV (7.4-10.4) fL Neut % (Auto) % Lymph % (Auto) % [place] % (Auto) % Eos % (Auto) % Baso % (Auto) % Neut # (Auto) (1.8-7.7) 10^3/u L Lymph # (Auto) (0.8-4.8) 10^3/u L [place] # (Auto) (0.2-0.9) 10^3/u L Eos # (Auto) (0.0-0.8) 10^3/u L Baso # (Auto) (0.0-0.1) 10^3/u L Nucleated RBC % (a uto) % Nucleated RBCs # /100WBC PT (12.1-14.9) SECO NDS INR (0.8-1.2) APTT (23.9-36.7) SECO NDS D-Dimer (0-0.59) ug/mIFE U Sodium (136-145) mmol/L Potassium (3.5-5.1) mmol/L Chloride (98-107) mmol/L Carbon Dioxide (22-29) mmol/L Anion Gap (5-19) BUN (8-23) mg/dL Creatinine (0.5-0.9) mg/dL GFR Calculation Glucose (65-115) mg/dL Calculated Osmolal ity (285-295) mOsm/k g Calcium (8.5-10.5) mg/dL Magnesium (1.7-2.3) mg/dL Total Bilirubin (0.15-1.2) mg/dL AST (0-32) U/L ALT (0-33) U/L Alkaline Phosphata se (35-105) IU/L Troponin T Baselin e (0-10) ng/L Troponin T 120 Min [place] 11.47 H Delta Troponin T -3.53 L NT-Pro-B Natriuret Pep (0-450) pg/mL Total Protein (6.6-8.7) g/dL Albumin (3.5-5.2) g/dL Globulin (1.3-4.6) g/dL Urine Color (Yellow) Urine Appearance (CLEAR) Urine pH (5-7) Ur Specific Gravit y (1.005-1.030) Urine Protein (Negative) Urine Glucose (UA) (Normal) Urine Ketones (Negative) Urine Blood (Negative) Urine Nitrate (Negative) Urine Bilirubin (Negative) Urine Urobilinogen (Negative) mg/dL Ur Leukocyte Lainey ase (Negative) Imaging Data^: CXR: Attestation: I personally reviewed and interpreted this imaging study as follows: Radiologist's impression: IMPRESSION: No acute findings. EKG Data^: EKG 1: Attestation: I personally reviewed and interpreted this EKG as follows: EKG interpretation date: 10/11/20 EKG interpretation time: 12:55 Prior EKG tracings: available for review Interpretation: Atrial fibrillation heart rate 78 abnormal EKG Computer generated interpretation: Chest X-Ray 10/11/20 12:38 IMPRESSION: No acute findings. EKG 2: Attestation: I personally reviewed and interpreted this EKG as follows: EKG interpretation date: 10/11/20 EKG interpretation time: 15:01 Interpretation: Atrial fibrillation nonspecific EKG changes heart rate 80 Computer generated interpretation: Chest X-Ray 10/11/20 12:38 IMPRESSION: No acute findings. Discharge Plan Discharge Patient Disposition: Home Clinical Impression: CURRAN (dyspnea on exertion), D-dimer, elevated, History of pulmonary emphysema Condition: Stable Prescriptions: No Action nitroglycerin [Nitrostat] 0.4 mg tablet, sublingual 0.4 mg SUBLINGUAL Q5M PRN (Reason: CHEST PAINS) RF: 0 Eliquis 2.5 mg tablet 2.5 mg PO BID Qty: 60 RF: 2 metoprolol tartrate 25 mg tablet 25 mg PO BID Qty: 60 RF: 2 amlodipine 5 mg tablet 5 mg PO DAILY 30 Days Qty: 30 RF: 5 (DME) CAM Boot See Rx Instructions .Route .MEDSUPPLY Qty: 1 RF: 0 (DME) lace up ankle brace See Rx Instructions .Route .MEDSUPPLY Qty: 1 RF: 0 cephalexin 500 mg capsule 500 mg PO Q12H 10 Days Qty: 20 RF: 0 furosemide [Lasix] 20 mg tablet 20 mg PO DAILY RF: 0 Discharge Orders: Discharge ED (Routine); Ordered 10/11/20 Ordered By: Eric Medley Referrals: Ed Michael, AUTOMATION TECH-C [Primary Care Provider] - Discharge Diet: Advance as tolerated Discharge Activity: Resume usual activity Patient Instructions: Opioid Safety Activity Restrictions/Additional Instructions: Patient is to continue all medications. Patient is to follow-up with primary care physician and cardiology as needed. Patient should be scheduled for outpatient pulmonary function testing and outpatient cardiac stress test. Patient should return to the emergency department if symptoms fail to improve or worsen. 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
--- NOTE | 2020-10-11 13:15 | PC.NURSE ---
XR performed at bedside.
--- NOTE | 2020-10-11 13:16 | PC.PHAR ---
PT BROUGHT IN HER MEDICATION THAT SHE TAKES WITH HER. THERE WERE ONLY 4 THINGS. I CALLED THE PHARMACY THAT SHE USES AND THEY SAID THAT SHE HAD NOT FILLED ANYTHING SINCE JULY. HER FAMILY MEMBER STATES, OH, DEAR, SHE HASN'T BEEN TAKING HER MEDICATIONS RIGHT. I LEFT MOST OF THE MEDICATIONS ON HER LIST SO YOU COULD SEE WHAT SHE HAS BEEN TAKING. SHE STATES THAT SHE TOOK THE 4 MEDICATIONS SHE BROUGHT IN THIS MORNING.
[2020-10-11 13:26] LABS: Basophils % 0.4 %; Eosinophils % 0.4 %; Hematocrit 37.4 % (37.0-47.0); Hemoglobin 12.4 g/dL (11.5-15.3); INR 1.08 (0.8-1.2); Lymphocytes % 37.3 %; Mean Corpuscular HGB Conc 33.2 g/dL (30.0-36.0); Mean Corpuscular Hemoglobin 30.8 pg (28.0-34.0); Mean Platelet Volume 11.4 fL (7.4-10.4); Monocytes # 0.5 10^3/uL (0.2-0.9); Neutrophils # 1.13 10^3/uL (1.8-7.7); Neutrophils % 42.9 %; Nucleated Red Blood Cells % 0 %; Platelet Count 151 10^3/cmm (130-400); Red Blood Count 4.02 10^6/uL (4.1-5.3); White Blood Count 2.6 10^3/uL (4.0-10.0)
[2020-10-11 13:27] LABS: Partial Thromboplastin Time 34.6 SECONDS (23.9-36.7)
[2020-10-11 13:29] LABS: D Dimer 1.83 ug/mIFEU (0-0.59)
[2020-10-11 13:35] LABS: Troponin(5th) Baseline 15 ng/L (0-10)
[2020-10-11 13:44] LABS: Alanine Aminotransferase 7 U/L (0-33); Alkaline Phosphatase 95 IU/L (35-105); Anion Gap 13.6 (5-19); Aspartate Amino Transferase 19 U/L (0-32); Blood Urea Nitrogen 9 mg/dL (8-23); Calcium 8.2 mg/dL (8.5-10.5); Carbon Dioxide 24 mmol/L (22-29); Chloride 102 mmol/L (98-107); Globulin 3.3 g/dL (1.3-4.6); Glucose 92 mg/dL (65-115); Magnesium 2.1 mg/dL (1.7-2.3); NT Pro B Type Natriuretic Pept 1302 pg/mL (0-450); Osmolality Calculated 280 mOsm/kg (285-295); Potassium 3.6 mmol/L (3.5-5.1); Sodium 136 mmol/L (136-145); Total Bilirubin 0.4 mg/dL (0.15-1.2); Total Protein 7.3 g/dL (6.6-8.7)
[2020-10-11 14:16] LABS: Add Urine Microscopic? NO; Charge for UA Resulting for Rev
[2020-10-11 14:23] LABS: Bilirubin Urine Neg (Negative); Blood Urine Neg (Negative); Glucose Urine UA Norm (Normal); Ketones Urine Negative (Negative); Leukocyte Esterase Urine Negative (Negative); Nitrate Urine Negative (Negative); Protein Urine Neg (Negative); Specific Gravity, Urine 1.005 (1.005-1.030); Urine Appearance Clear (CLEAR); Urine Color Yellow (Yellow); Urobilinogen Urine Norm (Negative); pH Urine 7 (5-7)
--- NOTE | 2020-10-11 14:40 | ECG_ITS ---
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 Measurements Intervals [place] Rate: 80 P: [place]: QRS: 2 QRSD: 86 T: 192 QT: 350 QTc: 404 Interpretive Statements ATRIAL FIBRILLATION ST DEVIATION AND MODERATE T-WAVE ABNORMALITY, CONSIDER ANTEROLATERAL ISCHEMIA [-0.1+ mV T WAVE IN V3-V6] Compared to ECG 10/11/2020 12:55:43 Ventricular premature complex(es) no longer present Aberrant conduction of supraventricular beat(s) no longer present Myocardial infarct finding no longer present T-wave abnormality still present Possible ischemia still present Electronically Signed On 10-11-2020 17:09:04 CDT by Xavier Ortiz M.D. [id number]
[2020-10-11 15:47] LABS: Troponin 5 2HR 11.47 ng/L (0-10)
[2020-10-11 15:51] LABS: Troponin 5 2HR Delta -3.53 ABS# (0-10)
== END 2020-10-11 16:24 | disposition home or self-care (01) ==
PROVIDERS: Emergency Provider Emergency Medicine; PCP Nurse Practitioner
DX: R06.00 Dyspnea, unspecified (principal); R79.9 Abnormal finding of blood chemistry, unspecified; J43.9 Emphysema, unspecified; Z79.01 Long term (current) use of anticoagulants; E78.5 Hyperlipidemia, unspecified; I10 Essential (primary) hypertension; Z86.711 Personal history of pulmonary embolism
CPT/HCPCS: 36415; 71045; 80053; 81003; 83735; 83880; 84484; 85025; 85378; 85610; 85730; 93005; 99284

== ENCOUNTER → 2020-10-13 15:37 | Outpatient (BNVA) | payer MEDICARE, OTHER, SELFPAY | PROVIDERS: PCP Nurse Practitioner; Visit Provider Nurse Practitioner | DX: I10 Essential (primary) hypertension (principal); I49.9 Cardiac arrhythmia, unspecified; F41.9 Anxiety disorder, unspecified; F32.9 Major depressive disorder, single episode, unspecified | CPT/HCPCS: 80061; 82607; 84443; 85025 ==

== ENCOUNTER 2020-10-19 17:10 | Inpatient (IN) | payer MEDICARE, OTHER, SELFPAY ==
[2020-10-19] VITALS (8 sets, daily range): BP systolic 138–157; BP diastolic 81–101; PULSE 58–85; RESP 14–24; TEMP 36.7–37; O2SAT 92–96; BMI 25.7
--- NOTE | 2020-10-19 17:23 | XRR_ITS ---
PROCEDURE INFORMATION: Exam: XR Chest Exam date and time: 10/19/2020 5:23 PM Age: 80 years old Clinical indication: Shortness of breath; Additional info: Syncope TECHNIQUE: Imaging protocol: XR of the chest. Views: 1 view. COMPARISON: CR XR chest 1V portable [id number] 10/11/2020 1:06 PM FINDINGS: Lungs: Left base atelectasis. The right lung is clear. Pleural spaces: Unremarkable. No pleural effusion. No pneumothorax. Heart/Mediastinum: Stable cardiomegaly. Calcified mediastinal lymph nodes. Vasculature: Tortuous thoracic aorta. Bones/joints: Unremarkable. XR/XR chest 1V portable [id number] IMPRESSION: 1. No acute finding.
--- NOTE | 2020-10-19 17:23 | CTR_ITS ---
PROCEDURE INFORMATION: Exam: CT Head Without Contrast Exam date and time: 10/19/2020 5:23 PM Age: 80 years old Clinical indication: Syncope and collapse; Additional info: Syncope, on eliquis TECHNIQUE: Imaging protocol: Computed tomography of the head without contrast. Radiation optimization: All CT scans at this facility use at least one of these dose optimization techniques: automated exposure control; mA and/or kV adjustment per patient size (includes targeted exams where dose is matched to clinical indication); or iterative reconstruction. COMPARISON: CT head wo con* [id number] 04/30/2017 9:27 AM RADIATION DOSE METRICS: Total DLP (mGy-cm): 791.19 FINDINGS: Brain: Mild atrophy and mild white matter chronic microvascular changes are noted. No hemorrhage or evidence of acute infarction is seen. Cerebral ventricles: No ventriculomegaly. Paranasal sinuses: Right sphenoid sinusitis is noted. Mastoid air cells: Visualized mastoid air cells are well aerated. Bones/joints: Unremarkable. No acute fracture. Soft tissues: Unremarkable. CT/CT head wo con* [id number] IMPRESSION: No acute intracranial abnormality. Mild sinusitis. Radiation Dose CTDIVOL = (mGy): DLP = 791.19 (mGy-cm)
--- NOTE | 2020-10-19 17:23 | ECG_ITS ---
[facility] Test Date: 2020-10-19 Pat Name: Tara Alvarez Department: Room: Gender: Female [employer] Technician: : 1940 Requested By: Rosenda Abarca Order Number: [id number] Nick MD: Xavier Ortiz M.D. Measurements Intervals [place] Rate: 61 P: MN: QRS: 5 QRSD: 99 T: 117 QT: 431 QTc: 435 Interpretive Statements ATRIAL FIBRILLATION ST DEVIATION AND MODERATE T-WAVE ABNORMALITY, CONSIDER LATERAL ISCHEMIA [-0.1+ mV T WAVE IN I/aVL/V5/V6] Compared to ECG 10/11/2020 15:01:45 No significant changes Electronically Signed On 10-20-2020 18:29:04 CDT by Xavier Ortiz M.D. [id number] f
--- NOTE | 2020-10-19 17:49 | CTR_ITS ---
PROCEDURE INFORMATION: Exam: CTA Chest With Contrast Exam date and time: 10/19/2020 5:49 PM Age: 80 years old Clinical indication: Shortness of breath; Patient HX: HX uterine CA; Additional info: SOB TECHNIQUE: Imaging protocol: Computed tomographic angiography of the chest with contrast. 3D rendering (Not supervised by radiologist): MIP and/or 3D reconstructed images were created by the technologist. Radiation optimization: All CT scans at this facility use at least one of these dose optimization techniques: automated exposure control; mA and/or kV adjustment per patient size (includes targeted exams where dose is matched to clinical indication); or iterative reconstruction. Contrast material: OMNI 350; Contrast volume: 73 ml; Contrast route: INTRAVENOUS (IV); COMPARISON: CT angio chest PE protcl [id number] 06/28/2020 6:21 PM RADIATION DOSE METRICS: Total DLP (mGy-cm): 511.74 FINDINGS: Pulmonary arteries: Normal. No pulmonary emboli. Aorta: Unremarkable. No aortic aneurysm. No aortic dissection. Lungs: Calcified granuloma in the right lower lobe. Mild interlobular septal thickening in the lung apices and lower lobes. Mild scattered atelectasis and scarring in both lungs. No consolidation. Pleural spaces: Unremarkable. No pneumothorax. No pleural effusion. Heart: Mild cardiomegaly. No pericardial effusion. Lymph nodes: Calcified mediastinal lymph nodes. Liver: Calcified granulomas in the liver. Spleen: Calcified granulomas in the spleen. Stomach and bowel: Diverticulosis of the colon. Bones/joints: Unremarkable. No acute fracture. Soft tissues: Unremarkable. CT/CT angio chest PE protcl [id number] IMPRESSION: 1. No evidence for pulmonary embolus. 2. Mild interlobular septal thickening could represent mild interstitial edema. Radiation Dose CTDIVOL = (mGy): DLP = 511.74 (mGy-cm)
--- NOTE | 2020-10-19 18:06 | W.ED.SYNCOPE ---
HPI - Syncope General: Chief Complaint: Syncope Stated Complaint: SYNCOPE Time Seen by Provider: 10/19/20 17:45 Source: patient Mode of arrival: ambulatory Limitations: no limitations History of Present Illness: HPI narrative: 80-year-old female who states she has been feeling weak over the last 4 to 5 days. States she had a syncopal event today and has had difficulty walking today. She denies any worsening improving factors. She denies any falls. She denies headache or chest pain. She did have an elevated D-dimer recently and has not had a CT scan. Associated symptoms: Deny abdominal pain, fever(s) or nausea Review of Systems Const: Denies: fever(s), chills, body aches or change in appetite Eyes: Denies: blurry vision or eye discomfort ENMT: Denies: throat pain or dental pain Card: Reports: syncope Resp: Denies: dyspnea GI: Denies: abdominal pain, nausea, vomiting or diarrhea : Denies: dysuria Musc: Denies: neck pain or back pain Skin/Breast: Denies: rash Neuro: Reports: weakness in extremities Psych: Denies: depression Hill/Lymph: Denies: easy bruising All/Imm: Denies: urticaria PFSH ED PFSH: Medical History Anxiety and depression Dyslipidemia Enrolled in chronic care management Essential (primary) hypertension History of pulmonary embolism Ventricular arrhythmia Surgical History Chronic obstructive lung disease H/O: hysterectomy without BSO History of appendectomy History of esophageal dilatation Hx of tonsillectomy Family History Mother CAD (coronary artery disease) Cancer Sister CAD (coronary artery disease) Cancer Brother CAD (coronary artery disease) Cancer Father Cancer Chronic kidney disease (CKD) Daughter Cancer Chronic kidney disease (CKD) Family/Other Dementia Diabetes Denies family history of Clotting disorder Suicide Anesthesia complication Bleeding disorder Lung disease Stroke Social History Smoking and tobacco status: never smoked Second hand smoke exposure: No Smoking risk assessment/counseling performed?: No Alcohol intake: never Desire information about alcohol rehabilitation?: No Counseling given: No Desire information about substance/drug rehabilitation?: No Counseling given: No Adopted: No Caregiver/support person: No Lives independently: Yes Household members: friend(s) Housing: House Marital status: / Number of children: 1 service: No Current occupational status: retired Pets and animals: Yes Pets & animals: cat(s) and dog(s) History of recent travel: No Current gender identity: Female Physical Exam Const: COMMON NORMALS: no acute distress, patient oriented x3 and healthy appearing HENMT: COMMON NORMALS: normocephalic and atraumatic HEAD & SCALP: normocephalic and atraumatic Eye: COMMON NORMALS: Equal, round and reactive pupils present and EOMs intact bilaterally PUPIL: Yes Equal, round and reactive pupils present Neck/C-Spine: COMMON NORMALS: full ROM and supple Chest: COMMONS NORMALS: normal inspection of the chest and normal palpation of entire chest wall Resp: COMMON NORMALS: normal respiratory effort, No retractions, No use of accessory muscles and clear to auscultation bilaterally AUSCULTATION: clear to auscultation bilaterally Cardio: COMMON NORMALS: regular rate, regular rhythm and No murmurs present (Cardio) RATE: regular rate RHYTHM: regular rhythm GI: COMMON NORMALS: Normal to inspection, nondistended, normoactive bowel sounds present, Soft to palpation, non-tender and no masses PALPATION: Yes Soft to palpation Extremity: COMMON NORMALS: normal to inspection and full ROM Neuro: COMMON NORMALS: patient oriented x3, moves all extremities and no focal motor deficits Psych: COMMON NORMALS: mental status grossly normal, Normal thought process present and cooperative THOUGHT PROCESS: Normal thought process present Skin: COMMON NORMALS: no rashes or lesions noted and no wounds GENERAL SKIN EXAM: no rashes or lesions noted Course Vital Signs: Vital signs: Vital Signs Pulse Rate 61 10/19/20 18:40 Respiratory Rate 24 H 10/19/20 17:21 Blood Pressure 140/88 10/19/20 17:21 Pulse Oximetry 94 10/19/20 17:46 MDM - Syncope MDM Narrative: Medical decision making narrative: Patient presents here with generalized weakness. Patient's imaging here is all normal she does have an urinary tract infection along with some hypokalemia. Likely urinary tract infections likely causing her weakness. She states she is having difficulty ambulating at home so we will start her on antibiotics and I spoke to the hospitalist and will admit. Patient's blood pressure here has been stable. Lab Data: Labs: Lab Results 10/19/20 10/19/20 10/19/20 Range/Units 17:59 17:59 17:59 WBC 4.3 (4.0-10.0) 10^3/ uL RBC 4.20 (4.1-5.3) 10^6/u L Hgb 12.9 (11.5-15.3) g/dL Hct 39.7 (37.0-47.0) % MCV 94.5 (81-99) fL MCH 30.7 (28.0-34.0) pg MCHC 32.5 (30.0-36.0) g/dL RDW 13.5 (12.1-15.1) % Plt Count 133 (130-400) 10^3/c mm MPV 11.7 H (7.4-10.4) fL Neut % (Auto) 43.6 % Lymph % (Auto) 43.6 % [place] % (Auto) 11.2 % Eos % (Auto) 1.4 % Baso % (Auto) 0.0 % Neut # (Auto) 1.87 (1.8-7.7) 10^3/u L Lymph # (Auto) 1.9 (0.8-4.8) 10^3/u L [place] # (Auto) 0.5 (0.2-0.9) 10^3/u L Eos # (Auto) 0.1 (0.0-0.8) 10^3/u L Baso # (Auto) 0.0 (0.0-0.1) 10^3/u L Nucleated RBC % (a uto) 0 % Nucleated RBCs # 0.0 /100WBC Sodium 142 (136-145) mmol/L Potassium 2.7 L* (3.5-5.1) mmol/L Chloride 101 (98-107) mmol/L Carbon Dioxide 29 (22-29) mmol/L Anion Gap 14.7 (5-19) BUN 21 (8-23) mg/dL Creatinine 0.9 (0.5-0.9) mg/dL GFR Calculation Not Reportable Glucose 94 (65-115) mg/dL Calculated Osmolal ity 297 H (285-295) mOsm/k g Calcium 8.3 L (8.5-10.5) mg/dL Total Bilirubin 0.5 (0.15-1.2) mg/dL AST 28 (0-32) U/L ALT 30 (0-33) U/L Alkaline Phosphata se 78 (35-105) IU/L Troponin T Baselin e 20 H (0-10) ng/L Total Protein 6.0 L (6.6-8.7) g/dL Albumin 3.8 (3.5-5.2) g/dL Globulin 2.2 (1.3-4.6) g/dL Urine Color (Yellow) Urine Appearance (CLEAR) Urine pH (5-7) Ur Specific Gravit y (1.005-1.030) Urine Protein (Negative) Urine Glucose (UA) (Normal) Urine Ketones (Negative) Urine Blood (Negative) Urine Nitrate (Negative) Urine Bilirubin (Negative) Prot Sulfosalicyli c Acd (Negative) Urine Urobilinogen (Negative) mg/dL Ur Leukocyte Lainey ase (Negative) Urine RBC (0-2) /hpf Urine WBC (0-5) /hpf Ur Squamous Epith Cells (0-5) /hpf Amorphous Sediment Urine Bacteria (NONE) /hpf 10/19/20 Range/Units 18:36 WBC (4.0-10.0) 10^3/ uL RBC (4.1-5.3) 10^6/u L Hgb (11.5-15.3) g/dL Hct (37.0-47.0) % MCV (81-99) fL MCH (28.0-34.0) pg MCHC (30.0-36.0) g/dL RDW (12.1-15.1) % Plt Count (130-400) 10^3/c mm MPV (7.4-10.4) fL Neut % (Auto) % Lymph % (Auto) % [place] % (Auto) % Eos % (Auto) % Baso % (Auto) % Neut # (Auto) (1.8-7.7) 10^3/u L Lymph # (Auto) (0.8-4.8) 10^3/u L [place] # (Auto) (0.2-0.9) 10^3/u L Eos # (Auto) (0.0-0.8) 10^3/u L Baso # (Auto) (0.0-0.1) 10^3/u L Nucleated RBC % (a uto) % Nucleated RBCs # /100WBC Sodium (136-145) mmol/L Potassium (3.5-5.1) mmol/L Chloride (98-107) mmol/L Carbon Dioxide (22-29) mmol/L Anion Gap (5-19) BUN (8-23) mg/dL Creatinine (0.5-0.9) mg/dL GFR Calculation Glucose (65-115) mg/dL Calculated Osmolal ity (285-295) mOsm/k g Calcium (8.5-10.5) mg/dL Total Bilirubin (0.15-1.2) mg/dL AST (0-32) U/L ALT (0-33) U/L Alkaline Phosphata se (35-105) IU/L Troponin T Baselin e (0-10) ng/L Total Protein (6.6-8.7) g/dL Albumin (3.5-5.2) g/dL Globulin (1.3-4.6) g/dL Urine Color Yellow (Yellow) Urine Appearance Clear (CLEAR) Urine pH 8 H (5-7) Ur Specific Gravit y 1.010 (1.005-1.030) Urine Protein Neg (Negative) Urine Glucose (UA) Norm (Normal) Urine Ketones Negative (Negative) Urine Blood Neg (Negative) Urine Nitrate Positive H (Negative) Urine Bilirubin Neg (Negative) Prot Sulfosalicyli c Acd Negative (Negative) Urine Urobilinogen Norm (Negative) mg/dL Ur Leukocyte Lainey ase Trace H (Negative) Urine RBC 0-4 H (0-2) /hpf Urine WBC 5-10 H (0-5) /hpf Ur Squamous Epith Cells 10-15 H (0-5) /hpf Amorphous Sediment Not Reportable Urine Bacteria 4+ H (NONE) /hpf Imaging Data^: CXR: Attestation: I personally reviewed and interpreted this imaging study as follows: Radiologist's impression: [address] [address] XRay Report Signed Patient: Tara Alvarez Unit #: [id number] : 1940 Age/Sex: 80 / F ADM Date: 10/19/20 Loc: ER Room/Bed: Attending Dr: Ordering Provider/Ordering MD: Rosenda Carreno DO Date of Service: 10/19/20 Procedure(s): XR chest 1V portable [id number] Accession Number(s): [id number] Report Number: [id number] PROCEDURE INFORMATION: Exam: XR Chest Exam date and time: 10/19/2020 5:23 PM Age: 80 years old Clinical indication: Shortness of breath; Additional info: Syncope TECHNIQUE: Imaging protocol: XR of the chest. Views: 1 view. COMPARISON: CR XR chest 1V portable [id number] 10/11/2020 1:06 PM FINDINGS: Lungs: Left base atelectasis. The right lung is clear. Pleural spaces: Unremarkable. No pleural effusion. No pneumothorax. Heart/Mediastinum: Stable cardiomegaly. Calcified mediastinal lymph nodes. Vasculature: Tortuous thoracic aorta. Bones/joints: Unremarkable. XR/XR chest 1V portable [id number] IMPRESSION: 1. No acute finding. CT Head: Radiologist's impression: [address] [address] [address] Scan Report Signed Patient: Tara Alvarez Unit #: [id number] : 1940 Age/Sex: 80 / F ADM Date: 10/19/20 Loc: ER Room/Bed: Attending Dr: Ordering Provider/Ordering MD: Rosenda Carreno DO Date of Service: 10/19/20 Procedure(s): CT head wo con* [id number] Accession Number(s): [id number] Report Number: [id number] PROCEDURE INFORMATION: Exam: CT Head Without Contrast Exam date and time: 10/19/2020 5:23 PM Age: 80 years old Clinical indication: Syncope and collapse; Additional info: Syncope, on eliquis TECHNIQUE: Imaging protocol: Computed tomography of the head without contrast. Radiation optimization: All CT scans at this facility use at least one of these dose optimization techniques: automated exposure control; mA and/or kV adjustment per patient size (includes targeted exams where dose is matched to clinical indication); or iterative reconstruction. COMPARISON: CT head wo con* [id number] 04/30/2017 9:27 AM RADIATION DOSE METRICS: Total DLP (mGy-cm): 791.19 FINDINGS: Brain: Mild atrophy and mild white matter chronic microvascular changes are noted. No hemorrhage or evidence of acute infarction is seen. Cerebral ventricles: No ventriculomegaly. Paranasal sinuses: Right sphenoid sinusitis is noted. Mastoid air cells: Visualized mastoid air cells are well aerated. Bones/joints: Unremarkable. No acute fracture. Soft tissues: Unremarkable. CT/CT head wo con* [id number] IMPRESSION: No acute intracranial abnormality. Mild sinusitis. Radiation Dose CTDIVOL = (mGy): DLP = 791.19 (mGy-cm) Dictated By: Danny Monroy MD Signed By: Danny Monroy MD Signed Date/Time: 10/19/201844 DD/ 44 CT Chest: Radiologist's impression: [address] [address] [address] Scan Report Signed Patient: Tara Alvarez Unit #: [id number] : 1940 Age/Sex: 80 / F ADM Date: 10/19/20 Loc: ER Room/Bed: Attending Dr: Ordering Provider/Ordering MD: Eugene Martines MD Date of Service: 10/19/20 Procedure(s): CT angio chest PE protcl [id number] Accession Number(s): [id number] Report Number: [id number] PROCEDURE INFORMATION: Exam: CTA Chest With Contrast Exam date and time: 10/19/2020 5:49 PM Age: 80 years old Clinical indication: Shortness of breath; Patient HX: HX uterine CA; Additional info: SOB TECHNIQUE: Imaging protocol: Computed tomographic angiography of the chest with contrast. 3D rendering (Not supervised by radiologist): MIP and/or 3D reconstructed images were created by the technologist. Radiation optimization: All CT scans at this facility use at least one of these dose optimization techniques: automated exposure control; mA and/or kV adjustment per patient size (includes targeted exams where dose is matched to clinical indication); or iterative reconstruction. Contrast material: OMNI 350; Contrast volume: 73 ml; Contrast route: INTRAVENOUS (IV); COMPARISON: CT angio chest PE protcl [id number] 06/28/2020 6:21 PM RADIATION DOSE METRICS: Total DLP (mGy-cm): 511.74 FINDINGS: Pulmonary arteries: Normal. No pulmonary emboli. Aorta: Unremarkable. No aortic aneurysm. No aortic dissection. Lungs: Calcified granuloma in the right lower lobe. Mild interlobular septal thickening in the lung apices and lower lobes. Mild scattered atelectasis and scarring in both lungs. No consolidation. Pleural spaces: Unremarkable. No pneumothorax. No pleural effusion. Heart: Mild cardiomegaly. No pericardial effusion. Lymph nodes: Calcified mediastinal lymph nodes. Liver: Calcified granulomas in the liver. Spleen: Calcified granulomas in the spleen. Stomach and bowel: Diverticulosis of the colon. Bones/joints: Unremarkable. No acute fracture. Soft tissues: Unremarkable. CT/CT angio chest PE protcl [id number] IMPRESSION: 1. No evidence for pulmonary embolus. 2. Mild interlobular septal thickening could represent mild interstitial edema. EKG Data^: EKG 1: Attestation: I personally reviewed and interpreted this EKG as follows: EKG interpretation date: 10/19/20 EKG interpretation time: 17:26 Interpretation: afib hr [address] or t wave abnormalities qrs 99 qtc 434 Discharge Plan Discharge Patient Disposition: Admitted As Inpatient Clinical Impression: Hypokalemia, Weakness Acute cystitis Qualifiers: Hematuria presence: without hematuria Qualified Code(s): N30.00 - Acute cystitis without hematuria Condition: Stable Coding Level of Care Code ED Waterproof Material Folder for Chg Fwd Exam Comprehensive
[2020-10-19 18:07] LABS: Eosinophils # 0.1 10^3/uL (0.0-0.8); Eosinophils % 1.4 %; Hematocrit 39.7 % (37.0-47.0); Hemoglobin 12.9 g/dL (11.5-15.3); Lymphocytes # 1.9 10^3/uL (0.8-4.8); Lymphocytes % 43.6 %; Mean Corpuscular HGB Conc 32.5 g/dL (30.0-36.0); Mean Corpuscular Hemoglobin 30.7 pg (28.0-34.0); Mean Corpuscular Volume 94.5 fL (81-99); Mean Platelet Volume 11.7 fL (7.4-10.4); Monocytes # 0.5 10^3/uL (0.2-0.9); Monocytes % 11.2 %; Neutrophils # 1.87 10^3/uL (1.8-7.7); Neutrophils % 43.6 %; Nucleated Red Blood Cells % 0 %; Platelet Count 133 10^3/cmm (130-400); Red Cell Distribution Width 13.5 % (12.1-15.1); White Blood Count 4.3 10^3/uL (4.0-10.0)
[2020-10-19] MEDS: iohexol 350 mg/mL 100 mL Btl IV (18:13)
[2020-10-19 18:53] LABS: Alanine Aminotransferase 30 U/L (0-33); Albumin Level 3.8 g/dL (3.5-5.2); Alkaline Phosphatase 78 IU/L (35-105); Anion Gap 14.7 (5-19); Aspartate Amino Transferase 28 U/L (0-32); Blood Urea Nitrogen 21 mg/dL (8-23); Calcium 8.3 mg/dL (8.5-10.5); Carbon Dioxide 29 mmol/L (22-29); Chloride 101 mmol/L (98-107); Creatinine Clr Calc Pharmacy 45.6752; Globulin 2.2 g/dL (1.3-4.6); Glucose 94 mg/dL (65-115); Osmolality Calculated 297 mOsm/kg (285-295); Sodium 142 mmol/L (136-145); Total Bilirubin 0.5 mg/dL (0.15-1.2); Troponin(5th) Baseline 20 ng/L (0-10)
[2020-10-19 19:04] LABS: Potassium 2.7 mmol/L (3.5-5.1)
[2020-10-19 19:06] LABS: Urine Appearance Clear (CLEAR); Urine Color Yellow (Yellow)
[2020-10-19 19:07] LABS: pH Urine 8 (5-7)
[2020-10-19 19:08] LABS: Bilirubin Urine Neg (Negative); Blood Urine Neg (Negative); Glucose Urine UA Norm (Normal); Ketones Urine Negative (Negative); Leukocyte Esterase Urine Trace (Negative); Nitrate Urine Positive (Negative); Protein Urine Neg (Negative); Sulfosalicylic Acid Urine Negative (Negative); Urobilinogen Urine Norm (Negative)
[2020-10-19 19:09] LABS: Add Urine Culture? No; Bacteria Urine 4+ /hpf; RBC Urine 0-4 /hpf (0-2)
[2020-10-19 19:11] LABS: Slide Review Slide Review Perform
--- NOTE | 2020-10-19 19:18 | PC.NURSE ---
Report from DILIP Betancourt
[2020-10-19] MEDS: cefTRIAXone 1,000 MG in sodium chloride 0.9% (plus) 50 ML 100 MG IV (19:25)
[2020-10-19] MEDS: potassium chloride ER 20 mEq Tablet 40 MEQ PO (19:25)
[2020-10-19] MEDS: ondansetron 2 mg/ML SDV 2 mL 4 MG IVP (19:38)
[2020-10-19 21:01] LABS: Troponin 5 2HR 24.69 ng/L (0-10); Troponin 5 2HR Delta 4.69 ABS# (0-10)
--- NOTE | 2020-10-19 21:13 | PC.NURSE ---
Assisted onto bedside toilet. Steady gait noted.
--- NOTE | 2020-10-19 21:56 | PC.NURSE ---
ADMIT Pt received to floor from ER at 2145. Ambulated from rney to bed. Denied any dizziness or lightheadedness. Says does not really remember what happened. Just woke up and had fallen onto the couch. Is alert and oriented. Denies pain or discomfort. Instructed to not be up without assist tonight. VS check done. RN to complete admission assessment
--- NOTE | 2020-10-19 23:18 | PM.HP ---
Providers/Chief Complaint Admitting Physician: Jen Loera Primary Care Provider: RICARDA Corral Chief Complaint: SYNCOPE History of Present Illness 80-year-old female with past medical history significant for anxiety, depression, dyslipidemia, hypertension, pulmonary embolism, chronic obstructive pulmonary disease, who presented the hospital with generalized weakness. Apparently this has been going on for the past week. Earlier today she was noted to have a syncopal event. Events leading up to this were difficult to obtain as the patient was quite sleepy at the time of my evaluation.In review of records patient was recently seen by her primary care physician on 10/13/2020 during which time she was complaining of memory problems and increasing lower extremity edema for which she was started on Lasix 20 mg daily. Patient denies any recent fever, chills, nausea vomiting in addition to chest pain or shortness of breath.Upon arrival to emergency room her initial laboratory workup showed a WBC of 4.3, hemoglobin of 12.9, hematocrit of 39.7 and a platelet count of 133. Sodium 142, potassium 2.7, chloride 101, bicarb 29, BUN 21 and creatinine of 0.9. Delta troponin T was 4.6. Urinalysis showed a positive nitrite, trace leukocyte esterase, 5 to 10 WBC and 4+ bacteria.D-dimer was elevated 1.83 on recent blood work. Chest x-ray did not show any evidence of acute cardiopulmonary abnormality.Head CT was also negative.CT of chest did not show any evidence of acute pulmonary embolism. Was however noted to have mild interlobular septal thickening representing mild interstitial edema. Review of Systems General: Reports: 10 or more systems reviewed and unremarkable except in HPI and below Medications/Allergies Home Medications Medication Instructions Recorded Confirmed Last Taken Type amlodipine 5 mg tablet 5 mg PO DAILY 30 Days #30 tab 06/30/20 10/19/20 10/11/20 Rx apixaban 2.5 mg tablet 2.5 mg PO BID #60 tab 10/13/20 10/19/20 10/19/20 Rx fluoxetine 20 mg capsule 20 mg PO DAILY #30 cap 10/13/20 10/19/20 10/19/20 Rx furosemide 20 mg tablet 20 mg PO DAILY #30 tab 10/13/20 10/19/20 10/19/20 Rx metoprolol tartrate 25 mg tablet 25 mg PO BID #60 tab 10/13/20 10/19/20 10/19/20 Rx nitroglycerin 0.4 mg sublingual 0.4 mg SUBLINGUAL Q5M PRN #25 tab 10/13/20 10/19/20 Unknown Rx tablet Allergies Allergy/AdvReac Type Severity Reaction Status Date / Time ciprofloxacin [From Cipro] Allergy Unknown Verified 10/11/20 12:07 codeine Allergy Unknown Verified 10/11/20 12:07 escitalopram [From Lexapro] Allergy Unknown Verified 10/11/20 12:07 irbesartan [From Avapro] Allergy Unknown Verified 10/11/20 12:07 losartan Allergy rash Verified 10/11/20 12:07 nitrofurantoin Allergy Unknown Verified 10/11/20 12:07 [From Macrobid] quinapril [From Accupril] Allergy Unknown Verified 10/11/20 12:07 Sulfa (Sulfonamide Allergy Unknown Verified 10/11/20 12:07 Antibiotics) PFSH Acute PFSH: Medical History Anxiety and depression Dyslipidemia Enrolled in chronic care management Essential (primary) hypertension History of pulmonary embolism Ventricular arrhythmia Surgical History Chronic obstructive lung disease H/O: hysterectomy without BSO History of appendectomy History of esophageal dilatation Hx of tonsillectomy Family History Mother CAD (coronary artery disease) Cancer Sister CAD (coronary artery disease) Cancer Brother CAD (coronary artery disease) Cancer Father Cancer Chronic kidney disease (CKD) Daughter Cancer Chronic kidney disease (CKD) Family/Other Dementia Diabetes Denies family history of Clotting disorder Suicide Anesthesia complication Bleeding disorder Lung disease Stroke Social History Smoking and tobacco status: never smoked Second hand smoke exposure: No Smoking risk assessment/counseling performed?: No Alcohol intake: never Desire information about alcohol rehabilitation?: No Counseling given: No Desire information about substance/drug rehabilitation?: No Counseling given: No Adopted: No Caregiver/support person: No Lives independently: Yes Household members: friend(s) Housing: House Marital status: / Number of children: 1 service: No Current occupational status: retired Pets and animals: Yes Pets & animals: cat(s) and dog(s) History of recent travel: No Current gender identity: Female Vitals/I&O/Wt Last Vital Signs Temp 98.1 F 10/20/20 03:38 Pulse 60 10/20/20 03:38 Resp 18 10/20/20 03:38 BP 154/78 10/20/20 03:38 Pulse Ox 95 10/20/20 03:38 10/19/20 10/19/20 10/20/20 14:59 22:59 06:59 Intake Total 120 / 120 Output Total 500 / 500 Balance -380 / -380 Weight last 48 hrs Weight 68.039 kg Physical Exam Narrative: EXAM NARRATIVE: General- sleepy at the time of my eval, no apparent distress HEENT-grossly unremarkable CVS- regular rate rhythm obvious murmurs Chest -clear to auscultation bilaterally Abdomen -soft nontender nondistended Extremities- 1+-2+ bilateral lower extremity edema Data : 10/19/20 17:59 10/19/20 17:59 A&P Assessment and plan (1) Hypokalemia: Status: Acute (2) Acute cystitis: Status: Acute Qualifiers: Hematuria presence: without hematuria Qualified Code(s): N30.00 - Acute cystitis without hematuria (3) Anxiety and depression: Status: Chronic (4) Dyslipidemia: Status: Chronic (5) History of pulmonary embolism: Status: Chronic (6) Essential (primary) hypertension: Status: Chronic Syncopal event Etiology unclear - infectious vs cardiovascular Will obtain ECHO Cardiac telemetry Fall precautions PT consult Urinary tract infection UA + nitriate, trace leuk, 4+ magdaleno Continue rocephin Follow up on culture Hypokalemia S/p KCL 40 MEQ Repeat BMP in am Replace as needed Additional Medical Problems Hypertension Hx of PE on Eliquis COPD Anxiety Depression DVT ppx - Eliquis Attestations Medical Necessity Statement*: Anticipate less than 2 midnight stay in hospital for eval Time Spent in Patient Care: Greater than 35 minutes (>than 50% of time spent in counselling and/or direct pt care on unit). Coding Level of Care Code Acute Process Control Board Operator for Rony Dwyer Diagnoses Hypokalemia E87.6 Acute cystitis N30.00 Hematuria presence: without hematuria Anxiety and depression F41.9; F32.9 Dyslipidemia E78.5 History of pulmonary embolism Z86.711 Essential (primary) hypertension I10
[2020-10-20] VITALS (8 sets, daily range): BP systolic 128–154; BP diastolic 78–92; PULSE 60–78; RESP 16–18; TEMP 36.4–36.7; O2SAT 91–95
--- NOTE | 2020-10-20 05:43 | PC.NURSE ---
SHIFT SUMMARY Has rested well since admisson. Up to bathroom with SBA. First time up c/o little dizziness but none present next times up. Telemetry showing A-fib with PVC's. Rate controlled
[2020-10-20 05:58] LABS: Basophils % 0.2 %; Eosinophils # 0.1 10^3/uL (0.0-0.8); Eosinophils % 2.2 %; Hematocrit 39.1 % (37.0-47.0); Hemoglobin 12.7 g/dL (11.5-15.3); Lymphocytes # 1.7 10^3/uL (0.8-4.8); Lymphocytes % 38.2 %; Mean Corpuscular HGB Conc 32.5 g/dL (30.0-36.0); Mean Corpuscular Hemoglobin 30.8 pg (28.0-34.0); Mean Corpuscular Volume 94.9 fL (81-99); Mean Platelet Volume 11.9 fL (7.4-10.4); Monocytes # 0.5 10^3/uL (0.2-0.9); Monocytes % 10.3 %; Neutrophils # 2.22 10^3/uL (1.8-7.7); Neutrophils % 48.9 %; Nucleated Red Blood Cells % 0 %; Platelet Count 138 10^3/cmm (130-400); Red Blood Count 4.12 10^6/uL (4.1-5.3); Red Cell Distribution Width 13.4 % (12.1-15.1); White Blood Count 4.6 10^3/uL (4.0-10.0)
[2020-10-20 06:18] LABS: Alanine Aminotransferase 28 U/L (0-33); Albumin Level 3.6 g/dL (3.5-5.2); Alkaline Phosphatase 81 IU/L (35-105); Aspartate Amino Transferase 27 U/L (0-32); Blood Urea Nitrogen 16 mg/dL (8-23); Calcium 8.4 mg/dL (8.5-10.5); Carbon Dioxide 26 mmol/L (22-29); Chloride 100 mmol/L (98-107); Creatinine Clr Calc Pharmacy 45.6752; Globulin 2.3 g/dL (1.3-4.6); Glucose 92 mg/dL (65-115); Osmolality Calculated 287 mOsm/kg (285-295); Sodium 138 mmol/L (136-145); Total Bilirubin 0.6 mg/dL (0.15-1.2); Total Protein 5.9 g/dL (6.6-8.7)
[2020-10-20 06:20] LABS: Anion Gap 15.3 (5-19); Potassium 3.3 mmol/L (3.5-5.1)
[2020-10-20] MEDS: fluoxetine 20 mg Capsule PO (08:39)
[2020-10-20] MEDS: metoprolol tartrate 25 mg Tablet PO ×2 (08:39→17:44)
[2020-10-20] MEDS: pantoprazole DR 40 mg Tablet PO (08:39)
[2020-10-20] MEDS: amlodipine 5 mg Tablet PO (08:39)
[2020-10-20] MEDS: apixaban 5 mg Tablet 2.5 MG PO (08:39)
--- NOTE | 2020-10-20 10:47 | PC.CHAP ---
Pastoral Care Encounter/Spiritual Assessment Type of Contact [] Declined main line station engineer visit [] Patient/Family/Request visit [] Outpatient visit [] Follow-up visit [] Physician referral [] Code/Alert [x] Routine visit [] Staff referral [] Actively dying [] Patient sleeping [] Family support [] [] Out of room [] Palliative care [] [x] Receiving care in room [] Pre-surgical visit [] Trauma [x] Long length of stay [] ICU visit [] Other: Relational/Emotional Strength [x] Patient feels connected with others/family/visitors/staff [] Distress [] Loneliness/isolation [] Abandonment Spirituality of Patient [x] Person of Marta [] Attends [employer] of their Marta [x] Believes in Prayer [] Reads Bible or Taoism materials [] There are Spiritual issues to be addressed Cardiac Surgeon Interventions [x] Prayer [x] Active listening [x] Non-anxious presence [x] Spiritual/emotional support [] Crisis/trauma care [x] Spiritual counseling [] Bereavement support [] Provided bereavement packet [] Provided Bible/devotional materials [] Provided toy/stuffed animal, coloring book to patient or family member [] Provided Communion [] Anointing/[place] [] Salvation [x] Completed spiritual assessment [] Other: Impact on Illness or Injury [] Angry [] Fearful [x] Anxious [] Often cries [] Exhaustion [x] Unable to work [] Unable to attend shinto [] Unable to walk/stand [] Unable to read [] Unable to drive [] Unable to eat/drink [] Unable to sleep [] Unable to be with family [] Patient intubated [] Other: Summary doesn't know about her health under doctors care wants to go home to family Time spent with patient 10 mins
--- NOTE | 2020-10-20 11:32 | USCV_ITS ---
Tara Alvarez Age: 80 Gender: F : 1940 Exam Date: 10/20/2020 14:52 Ordering Phys: Alessio Quan MD Technologist: Ashwini Leon Exam Location: [facility] – [place] Indication: History of pulmonary hypertension and diastolic dysfunction BP: 145 / 90 HR: 92 Rhythm: Sinus Technical Quality: Fair MEASUREMENTS (Male / Female) Normal Values 2D ECHO LV Diastolic Diameter PLAX 3.9 cm 4.2 - 5.9 / 3.9 - 5.3 cm LV Systolic Diameter PLAX 2.1 cm LV Chamber Size 4.0 cm IVS Diastolic Thickness 1.4 cm 0.6 - 1.0 / 0.6 - 0.9 cm IVS Systolic Thickness 1.8 cm LVPW Diastolic Thickness 1.3 cm 0.6 - 1.0 / 0.6 - 0.9 cm LVPW Systolic Thickness 1.6 cm RV Chamber Size 2.4 cm LVOT Diameter 2.0 cm LV Ejection Fraction 2D Teich 78.1 % LV Ejection Fraction MOD 2C 76.8 % LV Ejection Fraction 2C AL 76.6 % LA Diameter 3.9 cm LA Width 3.2 cm LA Height 6.7 cm RA Width 3.5 cm RA Height 5.1 cm Aorta at Sinotubular Diameter 2.4 cm M-MODE LV Diastolic Diameter MM 4.6 cm 4.2 - 5.9 / 3.9 - 5.3 cm LV Systolic Diameter MM 3.0 cm LV Ejection Fraction MM Teich 63.3 % IVS Diastolic Thickness MM 1.2 cm 0.6 - 1.0 / 0.6 - 0.9 cm IVS Systolic Thickness MM 1.6 cm LVPW Diastolic Thickness MM 1.3 cm 0.6 - 1.0 / 0.6 - 0.9 cm LVPW Systolic Thickness MM 1.9 cm RV Diastolic Diameter MM 2.4 cm Aortic Annulus Diameter 3.1 cm LA Ao Ratio MM 1.3 MV E Point Septal Separation 0.6 cm DOPPLER AV Peak Velocity 126.0 cm/s LVOT Peak Velocity 77.0 cm/s AV Area Cont Eq vti 1.9 cm squared AV Area Cont Eq pk 2.0 cm squared MV Area PHT 4.1 cm squared MV E' Velocity 86.0 cm/s TR Peak Velocity 188.2 cm/s TR Peak Gradient 14.2 mmHg TR Mean Velocity 144.8 cm/s TR Mean Gradient 8.5 mmHg TR Velocity Time Integral 52.5 cm TV Peak E Velocity 49.0 cm/s Right Atrial Pressure 8.0 mmHg Pulmonary Artery Systolic Pressu 22.2 mmHg PV Peak Velocity 47.0 cm/s RV Acceleration Time 0.1 s RV Ejection Time 0.3 s RV AcT/ET 0.3 FINDINGS Left Ventricle Normal left ventricular cavity size and systolic function. Left ventricular ejection fraction is estimated at 65 %. No regional wall motion abnormalities. Diastolic function was not assessed. Right Ventricle Normal right ventricular size and systolic function. Right ventricular systolic pressure 26 mmHg. Right Atrium Mildly increased right atrial size. Right atrial pressure estimated at 8 mmHg. Left Atrium Moderately increased left atrial size. Mitral Valve Mild mitral annular calcification. Structurally normal mitral valve. No mitral valve stenosis. Mild mitral valve regurgitation. Aortic Valve Aortic valve not well visualized. Probably mildly thickened trileaflet aortic valve. No aortic valve stenosis. Trace aortic valve regurgitation. Tricuspid Valve Structurally normal tricuspid valve. No tricuspid valve stenosis. Trace to mild tricuspid valve regurgitation. Pulmonic Valve Pulmonic valve not well visualized. No pulmonary valve stenosis. Significant pulmonary valve regurgitation Pericardium No pericardial effusion. Aorta Normal sized aortic root. Normal-sized inferior vena cava with decreased respiratory variation. CONCLUSIONS 1. Normal left ventricular cavity size and systolic function. Left ventricular ejection fraction is estimated at 65 %. No regional wall motion abnormalities. 2. Normal right ventricular size and systolic function. 3. Mild pulmonary hypertension with pulmonary artery pressure estimated 26 mmHg. 4. Mild mitral valve regurgitation. 5. Pulmonary artery pressure estimated at 26 mmHg. Dolly Stephens MD (Electronically Signed) Final Date: 24 October 2020 18:56 S
[2020-10-20 12:41] LABS: NT Pro B Type Natriuretic Pept 1240 pg/mL (0-450); Procalcitonin 0.04 ng/mL (0-0.5)
[2020-10-20 12:52] LABS: Iron 80 ug/dL (37-145); Percent Saturation 34.9 % (20-50); Total Iron Binding Capacity 229 mcg/dl; Unsaturated Iron Binding 149 ug/dL (112-347)
--- NOTE | 2020-10-20 13:07 | PM.PN ---
Subjective Subjective: Interval history: Admitted overnight. H&P not done. Examination patient sitting up in bed chair. Eager to go home. Denies any nausea vomiting, headache, dizziness. States she is feeling a lot stronger now. Complaining of mild dysuria. We discussed in detail regarding her need to be in hospital for 1 more day for further monitoring and dilation a urine culture. She is agreeable to stay for 1 more day. Vitals/I&O/Wt Last Vital Signs Temp 97.6 F 10/20/20 11:23 Pulse 60 10/20/20 11:23 Resp 17 10/20/20 11:23 BP 145/90 10/20/20 11:23 Pulse Ox 92 10/20/20 11:23 10/19/20 10/20/20 10/20/20 22:59 06:59 14:59 Intake Total 120 / 120 290 / 290 Output Total 500 / 500 Balance -380 / -380 290 / 290 Weight last 48 hrs Weight 68.039 kg Physical Exam Narrative: EXAM NARRATIVE: General: No acute distress, AO x3, forgetful HEENT: PERRLA, pupils bilaterally equal and reactive Chest: Normal vesicular breath sounds, no added sounds, equal good air entry bilaterally CVS: S1-S2 regular, no murmurs, no tachycardia, no gallops, no rubs Abdomen: Soft, nontender, no organomegaly, bowel sounds present Neuro: No focal deficits, no facial deformity, AO x3, power 5/5 in all limbs Data : 10/20/20 05:29 10/20/20 05:29 A&P Assessment and plan (1) Weakness: Status: Acute (2) Hypokalemia: Status: Acute (3) Acute cystitis: Status: Acute Qualifiers: Hematuria presence: without hematuria Qualified Code(s): N30.00 - Acute cystitis without hematuria (4) Anxiety and depression: Status: Chronic (5) Dyslipidemia: Status: Chronic (6) History of pulmonary embolism: Status: Chronic (7) Essential (primary) hypertension: Status: Chronic (8) Memory deficit: Status: Chronic Additional A&P Information Weakness: Most likely a combination of hypokalemia and UTI: Not in sepsis. Urine analysis consistent with UTI, patient is complaining of dysuria. Follow-up urine culture. Check blood culture, procalcitonin, MRSA swab. For now continue with ceftriaxone. Will de-escalate antibiotics as per culture results. Check TSH, morning cortisol levels. Fall precautions. PT/OT evaluation. Cardiac telemetry. Echocardiogram has been ordered and is awaited. Hypokalemia: Improved to 3.3 today. Will replete with 80 mg oral more. Continue to monitor daily. Essential hypertension: Goal blood pressure less than 140/90 mmHg. Continue with home dose of metoprolol, amlodipine. We will continue to monitor if needed will uptitrate medications accordingly. History of pulmonary embolism: No PE on the repeat CT done last night. Patient states she is been on Eliquis for many years. We discussed that the fact that she does not have any pulmonary embolism anymore and with a history of frequent falls recently and weakness it is quite possible that patient is at a higher risk of catastrophic bleeding and even hemorrhagic stroke as compared to her having major DVT or PE. Patient verbalizes understanding and state it is okay to stop the Eliquis for now. Memory deficit Dyslipidemia Anxiety and depression. Continue home dose of Prozac. Full code. Cardiac diet. Protonix for PUD prophylaxis. Heparin 5000 every 12 for DVT prophylaxis. Attestations Medical Necessity Statement*: Tara Alvarez is being changed to inpatient status as stay will now exceed 2 midnights. Ongoing hospital care is necessary for management of weakness secondary to UTI while urine culture sensitivities are awaited Time Spent in Patient Care: Greater than 35 minutes (>than 50% of time spent in counselling and/or direct pt care on unit). Coding Level of Care Code Acute Datastage Consultant for [facility] Fwd Diagnoses Weakness R53.1 Hypokalemia E87.6 Acute cystitis N30.00 Hematuria presence: without hematuria Anxiety and depression F41.9; F32.9 Dyslipidemia E78.5 History of pulmonary embolism Z86.711 Essential (primary) hypertension I10 Memory deficit R41.3
[2020-10-20 13:24] LABS: Thyroid Stimulating Hormone 1.97 uIU/mL (0.27-4.20)
[2020-10-20] MEDS: ondansetron 2 mg/ML SDV 2 mL 4 MG IVP (14:35)
[2020-10-20] MEDS: potassium chloride ER 20 mEq Tablet 80 MEQ PO (15:34)
[2020-10-20] MEDS: heparin 5,000 unit/mL INJ 1 mL 5000 UNIT SUBCUT (15:36)
[2020-10-20] MEDS: cefTRIAXone 1,000 MG in sodium chloride 0.9% (plus) 50 ML 100 MG IV (17:44)
[2020-10-21] MEDS: heparin 5,000 unit/mL INJ 1 mL 5000 UNIT SUBCUT (02:20)
[2020-10-21 04:47] VITALS: BP 134/76; PULSE 69; RESP 17; TEMP 36.8; O2SAT 95
[2020-10-21 05:36] LABS: Basophils % 0.2 %; Eosinophils # 0.1 10^3/uL (0.0-0.8); Eosinophils % 2.1 %; Hematocrit 38.5 % (37.0-47.0); Hemoglobin 12.3 g/dL (11.5-15.3); Lymphocytes # 1.9 10^3/uL (0.8-4.8); Lymphocytes % 39.8 %; Mean Corpuscular HGB Conc 31.9 g/dL (30.0-36.0); Mean Corpuscular Hemoglobin 30.9 pg (28.0-34.0); Mean Corpuscular Volume 96.7 fL (81-99); Mean Platelet Volume 12.4 fL (7.4-10.4); Monocytes # 0.4 10^3/uL (0.2-0.9); Monocytes % 9.1 %; Neutrophils # 2.36 10^3/uL (1.8-7.7); Neutrophils % 48.6 %; Nucleated Red Blood Cells % 0 %; Platelet Count 130 10^3/cmm (130-400); Red Blood Count 3.98 10^6/uL (4.1-5.3); Red Cell Distribution Width 13.5 % (12.1-15.1); White Blood Count 4.9 10^3/uL (4.0-10.0)
[2020-10-21 05:53] LABS: Alanine Aminotransferase 22 U/L (0-33); Albumin Level 3.5 g/dL (3.5-5.2); Alkaline Phosphatase 77 IU/L (35-105); Anion Gap 15.3 (5-19); Aspartate Amino Transferase 21 U/L (0-32); Blood Urea Nitrogen 18 mg/dL (8-23); Calcium 8.6 mg/dL (8.5-10.5); Carbon Dioxide 25 mmol/L (22-29); Chloride 105 mmol/L (98-107); Creatinine Clr Calc Pharmacy 45.6752; Globulin 2.5 g/dL (1.3-4.6); Glucose 93 mg/dL (65-115); Osmolality Calculated 294 mOsm/kg (285-295); Potassium 4.3 mmol/L (3.5-5.1); Sodium 141 mmol/L (136-145); Total Bilirubin 0.5 mg/dL (0.15-1.2)
[2020-10-21 06:00] VITALS: PULSE 69
[2020-10-21 07:37] VITALS: BP 130/84; PULSE 70; RESP 17; TEMP 36.6; O2SAT 95
--- NOTE | 2020-10-21 09:48 | PC.NURSE ---
Upon morning assessment, patient is confused and trying to leave. She is alert to self only. DISTRIBUTION SYSTEM OPERATOR now sitting with the patient Nurse called patient's daughter to ask about what is normal for her. Daugher Kendra says she normally has some memory problems. Daughter said she will come in to visit and see how she is doing so we can get a better idea how she is compared to her baseline.
--- NOTE | 2020-10-21 09:50 | PC.NURSE ---
Patient refused morning medications Nurse explained risks of skipping medications as these are home medications that we are continuing. Patient states she understands risk of increasing blood pressure, but patient is confused. Nurse will continue to monitor blood pressure and will see if patient is agreeable when daughter comes to visit.
--- NOTE | 2020-10-21 10:03 | P.DS_ITS ---
Discharge Providers Date of Admission: 10/20/20 11:33 Date of Discharge: October 21, 2020 Attending Provider at Admission: Jen Loera Attending Provider at Discharge: Alessio uQan MD Primary Care Provider: RICARDA Corral Diagnoses at Discharge Discharge Diagnosis (1) Weakness: Status: Acute (2) Hypokalemia: Status: Acute (3) Acute cystitis: Status: Acute Qualifiers: Hematuria presence: without hematuria Qualified Code(s): N30.00 - Acute cystitis without hematuria (4) Anxiety and depression: Status: Chronic (5) Dyslipidemia: Status: Chronic (6) History of pulmonary embolism: Status: Chronic (7) Essential (primary) hypertension: Status: Chronic (8) Memory deficit: Status: Chronic Reason for Visit Reason for Visit: SYNCOPE Hospital Course Hospital Course 80-year-old female with past medical history significant for anxiety, depr ession, dyslipidemia, hypertension, pulmonary embolism, chronic obstructive pulmonary disease, who presented the hospital with generalized weakness. Apparently this has been going on for the past week. Earlier today she was noted to have a syncopal event. Events leading up to this were difficult to obtain as the patient was quite sleepy at the time of my evaluation.In review of records patient was recently seen by her primary care physician on 10/13/2020 during which time she was complaining of memory problems and increasing lower extremity edema for which she was started on Lasix 20 mg daily. Patient denies any recent fever, chills, nausea vomiting in addition to chest pain or shortness of breath. Upon arrival to emergency room her initial laboratory workup showed a WBC of 4.3, hemoglobin of 12.9, hematocrit of 39.7 and a platelet count of 133. Sodium 142, potassium 2.7, chloride 101, bicarb 29, BUN 21 and creatinine of 0.9. Delta troponin T was 4.6. Urinalysis showed a positive nitrite, trace leukocyte esterase, 5 to 10 WBC and 4+ bacteria.D-dimer was elevated 1.83 on recent blood work. Chest x-ray did not show any evidence of acute cardiopulmonary abnormality.Head CT was also negative.CT of chest did not show any evidence of acute pulmonary embolism. Was however noted to have mild interlobular septal thickening representing mild interstitial edema. She is admitted to the hospital for further evaluation and management of weakness. At start was thought to be secondary to dehydration and cystitis. Her home dose of Lasix was stopped. Physical therapy evaluation was done and patient did well. She started on antibiotics for UTI. Urine culture is still pending. She has been discharged on oral Augmentin to finish a full course within 3 days. After further discussion about medications and goals of care with patient and family at bedside Eliquis was stopped as patient does not have any pulmonary embolism anymore and she with a higher risk of fall and having a catastrophic hemorrhage rather than developing more embolism. Patient is agreeable to the same. On admission she was found to be hypokalemic due to daily Lasix at home which was replaced. Her potassium levels remained stable. She has been discharged in hemodynamically stable condition with advised to stop Lasix and Eliquis. She can take Lasix 20 mg daily as needed for swelling. She is advised to take potassium 20 mEq oral on the days she takes Lasix. She advised to follow-up with her primary care provider within next 1 week for review of BMP. Physical Exam Narrative: EXAM NARRATIVE: General: No acute distress, AO x2-3, forgetful HEENT: PERRLA, pupils bilaterally equal and reactive Chest: Normal vesicular breath sounds, no added sounds, equal good air entry bilaterally CVS: S1-S2 regular, no murmurs, no tachycardia, no gallops, no rubs Abdomen: Soft, nontender, no organomegaly, bowel sounds present Neuro: No focal deficits, no facial deformity, AO x3, power 5/5 in all limbs Discharge Data Data Completed and Pending: Completed Studies During Hospitalization Category Date Time Status CT angio chest PE protcl [id number] Urge nt Cat Scan 10/19/20 17:[address] head wo con* [id number] Stat Cat Scan 10/19/20 17:23 Completed XR chest 1V anabella ble [id number] Stat Exams 10/19/20 17:23 Completed Pending at discharge Category Date Time Status Blood Culture Sta t Lab 10/20/20 12:51 Results MRSA by PCR Shilpii ne Lab 10/20/20 11:31 Ordered Urine Culture Sta t Lab 10/20/20 13:07 Received CV echo complete* [id number] Routine Ultrasound 10/20/20 11:32 Taken Labs from last 24 hours 10/21/20 10/21/20 10/20/20 04:45 04:45 06:20 WBC 4.9 RBC 3.98 L Hgb 12.3 Hct 38.5 MCV 96.7 MCH 30.9 MCHC 31.9 RDW 13.5 Plt Count 130 MPV 12.4 H Neut % (Auto) 48.6 Lymph % (Auto) 39.8 [place] % (Auto) 9.1 Eos % (Auto) 2.1 Baso % (Auto) 0.2 Neut # (Auto) 2.36 Lymph # (Auto) 1.9 [place] # (Auto) 0.4 Eos # (Auto) 0.1 Baso # (Auto) 0.0 Nucleated RBC % (a uto) 0 Nucleated RBCs # 0.0 Sodium 141 Potassium 4.3 Chloride 105 Carbon Dioxide 25 Anion Gap 15.3 BUN 18 Creatinine 0.9 GFR Calculation Not Reportable Glucose 93 Calculated Osmolal ity 294 Calcium 8.6 Iron TIBC % Saturation Unsat Iron Binding Total Bilirubin 0.5 AST 21 ALT 22 Alkaline Phosphata se 77 NT-Pro-B Natriuret Pep Total Protein 6.0 L Albumin 3.5 Globulin 2.5 Procalcitonin TSH 1.97 10/20/20 06:20 WBC RBC Hgb Hct MCV MCH MCHC RDW Plt Count MPV Neut % (Auto) Lymph % (Auto) [place] % (Auto) Eos % (Auto) Baso % (Auto) Neut # (Auto) Lymph # (Auto) [place] # (Auto) Eos # (Auto) Baso # (Auto) Nucleated RBC % (a uto) Nucleated RBCs # Sodium Potassium Chloride Carbon Dioxide Anion Gap BUN Creatinine GFR Calculation Glucose Calculated Osmolal ity Calcium Iron 80 TIBC 229 % Saturation 34.9 Unsat Iron Binding 149 Total Bilirubin AST ALT Alkaline Phosphata se NT-Pro-B Natriuret Pep 1240 H Total Protein Albumin Globulin Procalcitonin 0.04 TSH Addt'l Data from Hospital Stay: Laboratory Results WBC 4.9 10^3/uL (4.0- 10.0) 10/21/20 04:45 RBC 3.98 10^6/uL (4.1 -5.3) L 10/21/20 04:45 Hgb 12.3 g/dL (11.5-1 5.3) 10/21/20 04:45 Hct 38.5 % (37.0-47.0 ) 10/21/20 04:45 MCV 96.7 fL (81-99) 10/21/20 04:45 MCH 30.9 pg (28.0-34. 0) 10/21/20 04:45 MCHC 31.9 g/dL (30.0-3 6.0) 10/21/20 04:45 RDW 13.5 % (12.1-15.1 ) 10/21/20 04:45 Plt Count 130 10^3/cmm (130 -400) 10/21/20 04:45 MPV 12.4 fL (7.4-10.4 ) H 10/21/20 04:45 Neut % (Auto) 48.6 % 10/21/20 04:45 Lymph % (Auto) 39.8 % 10/21/20 04:45 [place] % (Auto) 9.1 % 10/21/20 04:45 Eos % (Auto) 2.1 % 10/21/20 04:45 Baso % (Auto) 0.2 % 10/21/20 04:45 Neut # (Auto) 2.36 10^3/uL (1.8 -7.7) 10/21/20 04:45 Lymph # (Auto) 1.9 10^3/uL (0.8- 4.8) 10/21/20 04:45 [place] # (Auto) 0.4 10^3/uL (0.2- 0.9) 10/21/20 04:45 Eos # (Auto) 0.1 10^3/uL (0.0- 0.8) 10/21/20 04:45 Baso # (Auto) 0.0 10^3/uL (0.0- 0.1) 10/21/20 04:45 Nucleated RBC % (a uto) 0 % 10/21/20 04:45 Nucleated RBCs # 0.0 /100WBC 10/21/20 04:45 Sodium 141 mmol/L (136-1 45) 10/21/20 04:45 Potassium 4.3 mmol/L (3.5-5 .1) 10/21/20 04:45 Chloride 105 mmol/L (98-10 7) 10/21/20 04:45 Carbon Dioxide 25 mmol/L (22-29) 10/21/20 04:45 Anion Gap 15.3 (5-19) 10/21/20 04:45 BUN 18 mg/dL (8-23) 10/21/20 04:45 Creatinine 0.9 mg/dL (0.5-0. 9) 10/21/20 04:45 GFR Calculation Not Reportable 10/21/20 04:45 Glucose 93 mg/dL (65-115) 10/21/20 04:45 Calculated Osmolal ity 294 mOsm/kg (285- 295) 10/21/20 04:45 Calcium 8.6 mg/dL (8.5-10 .5) 10/21/20 04:45 Iron 80 ug/dL (37-145) 10/20/20 06:20 TIBC 229 mcg/dl 10/20/20 06:20 % Saturation 34.9 % (20-50) 10/20/20 06:20 Unsat Iron Binding 149 ug/dL (112-34 7) 10/20/20 06:20 Total Bilirubin 0.5 mg/dL (0.15-1 .2) 10/21/20 04:45 AST 21 U/L (0-32) 10/21/20 04:45 ALT 22 U/L (0-33) 10/21/20 04:45 Alkaline Phosphata se 77 IU/L (35-105) 10/21/20 04:45 Troponin T Baselin e 20 ng/L (0-10) H 10/19/20 17:59 Troponin T 120 Min pam[place]key 24.69 ng/L (0-10) H 10/19/20 20:33 Delta Troponin T 4.69 ABS# (0-10) 10/19/20 20:33 NT-Pro-B Natriuret Pep 1240 pg/mL (0-450 ) H 10/20/20 06:20 Total Protein 6.0 g/dL (6.6-8.7 ) L 10/21/20 04:45 Albumin 3.5 g/dL (3.5-5.2 ) 10/21/20 04:45 Globulin 2.5 g/dL (1.3-4.6 ) 10/21/20 04:45 Procalcitonin 0.04 ng/mL (0-0.5 ) 10/20/20 06:20 TSH 1.97 uIU/mL (0.27 -4.20) 10/20/20 06:20 Urine Color Yellow (Yellow) 10/19/20 18:36 Urine Appearance Clear (CLEAR) 10/19/20 18:36 Urine pH 8 (5-7) H 10/19/20 18:36 Ur Specific Gravit y 1.010 (1.005-1.0 30) 10/19/20 18:36 Urine Protein Neg (Negative) 10/19/20 18:36 Urine Glucose (UA) Norm (Normal) 10/19/20 18:36 Urine Ketones Negative (Negati ve) 10/19/20 18:36 Urine Blood Neg (Negative) 10/19/20 18:36 Urine Nitrate Positive (Negati ve) H 10/19/20 18:36 Urine Bilirubin Neg (Negative) 10/19/20 18:36 Prot Sulfosalicyli c Acd Negative (Negati ve) 10/19/20 18:36 Urine Urobilinogen Norm mg/dL (Negat jayne) 10/19/20 18:36 Ur Leukocyte Lainey ase Trace (Negative) H 10/19/20 18:36 Urine RBC 0-4 /hpf (0-2) H 10/19/20 18:36 Urine WBC 5-10 /hpf (0-5) H 10/19/20 18:36 Ur Squamous Epith Cells 10-15 /hpf (0-5) H 10/19/20 18:36 Amorphous Sediment Not Reportable 10/19/20 18:36 Urine Bacteria 4+ /hpf (NONE) H 10/19/20 18:36 Impressions Chest X-Ray 10/19/20 17:23 IMPRESSION: 1. No acute finding. Head CT 10/19/20 17:23 IMPRESSION: No acute intracranial abnormality. Mild sinusitis. Radiation Dose CTDIVOL = (mGy): DLP = 791.19 (mGy-cm) Chest CTA 10/19/20 17:49 IMPRESSION: 1. No evidence for pulmonary embolus. 2. Mild interlobular septal thickening could represent mild interstitial edema. Radiation Dose CTDIVOL = (mGy): DLP = 511.74 (mGy-cm) Vitals: Last Vital Signs Temp 97.8 F 10/21/20 07:37 Pulse 70 10/21/20 07:37 Resp 17 10/21/20 07:37 BP 130/84 10/21/20 07:37 Pulse Ox 95 10/21/20 07:37 Discharge Plan Discharge Patient Disposition: Home Condition: Stable Prescriptions: New amoxicillin-pot clavulanate [Augmentin] 500-125 mg tablet 1 tab PO BID Qty: 7 RF: 0 potassium chloride 10 mEq capsule, extended release 10 meq PO DAILY PRN (Reason: On the day you take Lasix) Qty: 10 RF: 0 Continued amlodipine 5 mg tablet 5 mg PO DAILY 30 Days Qty: 30 RF: 5 metoprolol tartrate 25 mg tablet 25 mg PO BID Qty: 60 RF: 2 fluoxetine [Prozac] 20 mg capsule 20 mg PO DAILY Qty: 30 RF: 2 nitroglycerin [Nitrostat] 0.4 mg tablet, sublingual 0.4 mg SUBLINGUAL Q5M PRN (Reason: CHEST PAINS) Qty: 25 RF: 0 Changed furosemide [Lasix] 20 mg tablet 20 mg PO DAILY PRN (Reason: swelling/) Qty: 30 RF: 2 Discontinued Eliquis 2.5 mg tablet 2.5 mg PO BID Qty: 60 RF: 2 Discharge Orders: Discharge Order (Routine); Ordered 10/21/20 Ordered By: Alessio Quan Referrals: Ed Michael, FINISHING AREA SUPERVISOR-C [Primary Care Provider] - 4-7 days Discharge Diet: Usual diet Discharge Activity: Resume usual activity Patient Instructions: Opioid Safety Activity Restrictions/Additional Instructions: Please follow-up with your primary care provider within next 1 week. Eliquis has been stopped now. Please take Augmentin for 3 days to finish a course of antibiotics for UTI. Discharge Attestations Time Spent in Discharge Care*: greater than 30 min Specific Discharge Activities: educating patient, educating and/or supporting family/caregiver, discussing with pcp/other providers, discussing with casework specialist/social workers/dc planners, documenting/other paperwork and evaluating patient/reviewing data Status at Discharge: Cognitive status at discharge: cognitively intact , Behavioral status at discharge: cooperative , Functional status at discharge: independent ambulation Overall status at discharge: patient is back to baseline Quality Metrics Clinical Quality Measures During this hospital stay, did patient experience: None Coding Level of Care Code Acute Chg FW DC note Diagnoses Weakness R53.1 Hypokalemia E87.6 Acute cystitis N30.00 Hematuria presence: without hematuria Anxiety and depression F41.9; F32.9 Dyslipidemia E78.5 History of pulmonary embolism Z86.711 Essential (primary) hypertension I10 Memory deficit R41.3
[2020-10-21 10:26] VITALS: BP 160/93; PULSE 80; RESP 20; TEMP 36.3; O2SAT 97
--- NOTE | 2020-10-21 10:36 | PC.NURSE ---
NOw that patient's daughter is here, patient has become more cooperative. I checked her blood pressure and it is high, 160's systolic patient now wants to take her morning medications. Nurse administered morning meds per orders.
[2020-10-21] MEDS: fluoxetine 20 mg Capsule PO (10:42)
[2020-10-21] MEDS: amlodipine 5 mg Tablet PO (10:42)
[2020-10-21] MEDS: metoprolol tartrate 25 mg Tablet PO (10:42)
[2020-10-21] MEDS: pantoprazole DR 40 mg Tablet PO (10:43)
[2020-10-21 11:17] VITALS: BP 152/101; PULSE 78; RESP 17; TEMP 36.6; O2SAT 95
--- NOTE | 2020-10-21 11:41 | PC.NURSE ---
Discharge orders received for patient. Nurse verified pharmacy and transmitted medications. Case management has discussed home health with family. All belongings verified to go with patient. Medication and discharge instructions reviewed with the patient. Patient taken out via wheelchair. Room mate Anthony with be driving her home.
--- NOTE | 2020-10-21 11:43 | PC.NURSE ---
IV removed before discharge.
== END 2020-10-21 11:55 | disposition home health service (06) | DRG 690 ==
LOC: ER 19:24 → MEDSURG 21:22
PROVIDERS: Emergency Medicine; Admitting Provider Hospitalist; Emergency Provider Emergency Medicine; PCP Nurse Practitioner; Visit Provider Student in an Organized Health Care Education/Training Program
DX: N30.00 Acute cystitis without hematuria (principal); E87.6 Hypokalemia; R55 Syncope and collapse; E78.5 Hyperlipidemia, unspecified; I10 Essential (primary) hypertension; R41.3 Other amnesia; J44.9 Chronic obstructive pulmonary disease, unspecified; I49.8 Other specified cardiac arrhythmias; F32.9 Major depressive disorder, single episode, unspecified; F41.9 Anxiety disorder, unspecified; Z86.711 Personal history of pulmonary embolism; Z79.01 Long term (current) use of anticoagulants; Z82.49 Family history of ischemic heart disease and other diseases of the circulatory system; Z91.81 History of falling
CPT/HCPCS: 36415; 70450; 71045; 71275; 80053; 81001; 83540; 83550; 83880; 84145; 84443; 84484; 85025; 87040; 87077; 87086; 87186; 87449; 93005; 93306; 96365; 96372; 96375; 97116; 97161; 99285; G0378; J0696; J1644; J2405; Q9967

== ENCOUNTER → 2020-10-27 12:28 | Outpatient (BNVA) | payer MEDICARE, OTHER, SELFPAY | PROVIDERS: PCP Nurse Practitioner; Visit Provider Nurse Practitioner | DX: I10 Essential (primary) hypertension (principal); Z79.899 Other long term (current) drug therapy | CPT/HCPCS: 81000 ==

== ENCOUNTER → 2021-06-27 16:20 | Outpatient (BNVA) | payer MEDICARE, OTHER, SELFPAY | PROVIDERS: PCP Nurse Practitioner; Visit Provider Nurse Practitioner | DX: I49.9 Cardiac arrhythmia, unspecified (principal); I10 Essential (primary) hypertension; R07.89 Other chest pain; E87.6 Hypokalemia; R74.01 Elevation of levels of liver transaminase levels; I26.99 Other pulmonary embolism without acute cor pulmonale; T45.515A Adverse effect of anticoagulants, initial encounter; R41.3 Other amnesia | CPT/HCPCS: 80053; 80061; 84443; 85025; 86705; 86706; 86709; 86803; 87340 ==

== ENCOUNTER → 2021-07-05 09:44 | Outpatient (BNVA) | payer MEDICARE, OTHER, SELFPAY | PROVIDERS: PCP Nurse Practitioner; Visit Provider Nurse Practitioner | DX: E87.6 Hypokalemia (principal); I10 Essential (primary) hypertension | CPT/HCPCS: 80048 ==

== ENCOUNTER → 2021-09-20 11:18 | Outpatient (BNVA) | payer MEDICARE, OTHER, SELFPAY | PROVIDERS: PCP Nurse Practitioner; Visit Provider Nurse Practitioner | DX: I10 Essential (primary) hypertension (principal); E87.6 Hypokalemia; R05.9 Cough, unspecified; J32.9 Chronic sinusitis, unspecified | CPT/HCPCS: 71046; 80053; 85025 ==

== ENCOUNTER → 2021-09-26 11:50 | Outpatient (BNVA) | payer MEDICARE, OTHER, SELFPAY | PROVIDERS: PCP Nurse Practitioner; Visit Provider Nurse Practitioner | DX: R11.0 Nausea (principal) | CPT/HCPCS: 80053; 81000; 85025 ==

== ENCOUNTER → 2021-11-21 14:45 | Outpatient (BNVA) | payer MEDICARE, OTHER, SELFPAY | PROVIDERS: PCP Nurse Practitioner; Visit Provider Nurse Practitioner | DX: E87.6 Hypokalemia (principal); K05.10 Chronic gingivitis, plaque induced; R45.4 Irritability and anger; I10 Essential (primary) hypertension; I26.99 Other pulmonary embolism without acute cor pulmonale; T45.515A Adverse effect of anticoagulants, initial encounter | CPT/HCPCS: 80053 ==

== ENCOUNTER → 2022-01-29 14:15 | Outpatient (BNVA) | payer MEDICARE, OTHER, SELFPAY | PROVIDERS: PCP Nurse Practitioner; Visit Provider Nurse Practitioner | DX: L03.90 Cellulitis, unspecified (principal); I10 Essential (primary) hypertension; E87.6 Hypokalemia; R45.4 Irritability and anger | CPT/HCPCS: 80053; 84443; 85025 ==

== ENCOUNTER → 2022-04-23 15:49 | Outpatient (BNVA) | payer MEDICARE, OTHER, SELFPAY | PROVIDERS: PCP Nurse Practitioner; Visit Provider Nurse Practitioner | DX: L03.90 Cellulitis, unspecified (principal); I10 Essential (primary) hypertension; E87.6 Hypokalemia; R45.4 Irritability and anger; S00.31XA Abrasion of nose, initial encounter | CPT/HCPCS: 80053; 80061; 85025 ==

== ENCOUNTER 2022-07-17 11:41 | Emergency (ER) | payer MEDICARE, OTHER, SELFPAY ==
[2022-07-17] VITALS (7 sets, daily range): BP systolic 158–179; BP diastolic 86–98; PULSE 57–75; RESP 17–23; TEMP 35.6; O2SAT 92–97; BMI 22.3
--- NOTE | 2022-07-17 11:52 | ECG_ITS ---
[facility] Test Date: 2022-07-17 Pat Name: Tara Alvarez Department: Room: Gender: Female Chef De Cuisine: : 1940 Requested By: Adria Gan Order Number: [id number] Reading MD: FREDA TAMAYO Measurements Intervals [place] Rate: 64 P: 0 MT: 0 QRS: 15 QRSD: 90 T: 32 QT: 422 QTc: 438 Interpretive Statements ATRIAL FIBRILLATION NONSPECIFIC ST & T-WAVE ABNORMALITY ABNORMAL RHYTHM ECG Compared to ECG 10/19/2020 17:26:26 Possible ischemia no longer present T-wave abnormality still present Electronically Signed On 07-17-2022 17:34:16 CDT by FREDA TAMAYO [email or web address]
--- NOTE | 2022-07-17 12:32 | ED_ITS ---
HPI - Arrhythmia/Palpitations General: Chief Complaint: Arrhythmia/Palpitations Stated Complaint: CHEST PAIN/ AFLUTTER/ AFIB Time Seen by Provider: 07/17/22 12:04 History of Present Illness: Patient presents to the ER by EMS with complaints of an episode this morning where she could not catch her breath. Reports may have had chest pain at that time was mainly breathing that worried her. Family states this happened a couple hours ago and only lasted for couple minutes. Patient does have a history of A-fib and is on Plavix. Patient denies chest pain shortness of breath at this time and says she is back to normal. Patient received 324 mg of aspirin and Zofran in route. Patient is 98% on room air currently MD complaint: palpitations (Shortness of breath) Onset (ago): hour(s) (A couple hours ago) Duration: now resolved (Only lasted a couple minutes) Severity: moderate Context: occurred during rest Arrhythmia history: atrial fibrillation and on anti-coagulants Associated symptoms: Reports short of breath; Deny anxiety, nausea or vomiting Treatments prior to arrival: other (EMS administered 324 mg aspirin and Zofran) Review of Systems General: Reports: 10 or more systems reviewed and unremarkable except in HPI and below Const: Denies: fever(s), chills or body aches Eyes: Denies: change in vision ENMT: Denies: throat pain Card: Reports: chest pain and irregular heart rhythm Resp: Reports: dyspnea GI: Denies: abdominal pain, nausea, vomiting or diarrhea : Denies: flank pain, difficulty voiding, dysuria or urinary frequency Musc: Denies: neck pain or back pain Skin/Breast: Denies: rash, pruritus or erythema Neuro: Denies: headache(s), numbness in extremities or weakness in extremities Psych: Denies: anxiety, depression or mood swings Endo: Denies: polyuria, polydipsia, tired all the time or excessive sweating Hill/Lymph: Reports: easy bruising and easy bleeding All/Imm: Denies: urticaria, throat swelling or tongue swelling PFSH ED PFSH: Medical History Anxiety and depression Dementia Dyslipidemia Enrolled in chronic care management Essential (primary) hypertension History of pulmonary embolism Hypokalemia Memory deficit Ventricular arrhythmia Weakness Surgical History Chronic obstructive lung disease H/O: hysterectomy without BSO History of appendectomy History of esophageal dilatation Hx of breast surgery Hx of tonsillectomy Family History Mother CAD (coronary artery disease) Cancer Sister CAD (coronary artery disease) Cancer Brother CAD (coronary artery disease) Cancer Father Cancer Chronic kidney disease (CKD) Daughter Cancer Chronic kidney disease (CKD) Family/Other Dementia Diabetes Denies family history of Clotting disorder Suicide Anesthesia complication Bleeding disorder Lung disease Stroke Social History Smoking and tobacco status: never smoked Second hand smoke exposure: No Smoking risk assessment/counseling performed?: No Alcohol intake: never Desire information about alcohol rehabilitation?: No Counseling given: No Desire information about substance/drug rehabilitation?: No Counseling given: No Adopted: No Caregiver/support person: No Lives independently: Yes Household members: friend(s) Housing: House Marital status: / Number of children: 1 service: No Current occupational status: retired Pets and animals: Yes Pets & animals: cat(s) and dog(s) Current gender identity: Female Physical Exam Const: COMMON NORMALS: no acute distress, average body habitus, patient oriented x3, healthy appearing, alert and well nourished EXAM LIMITATIONS: altered mental status (Patient does have dementia) HENMT: COMMON NORMALS: normocephalic, atraumatic and hearing grossly normal bilaterally HEAD & SCALP: normocephalic and atraumatic Eye: COMMON NORMALS: Equal, round and reactive pupils present, EOMs intact bilaterally and conjunctivae normal CONJUNCTIVA: Yes conjunctivae normal PUPIL: Yes Equal, round and reactive pupils present Neck/C-Spine: COMMON NORMALS: full ROM, no lymphadenopathy, supple, no JVD and Thyroid normal THYROID: Thyroid normal Chest: COMMONS NORMALS: normal inspection of the chest and normal palpation of entire chest wall Resp: COMMON NORMALS: normal respiratory effort, No retractions, No use of accessory muscles and clear to auscultation bilaterally AUSCULTATION: clear to auscultation bilaterally Cardio: COMMON NORMALS: no JVD, regular rate, regular rhythm, S1 normal heart sound present, S2 normal heart sound present and No gallops present (Cardio) RATE: regular rate RHYTHM: regular rhythm HEART SOUNDS: S1 normal heart sound present and S2 normal heart sound present GI: COMMON NORMALS: Normal to inspection, nondistended, normoactive bowel sounds present, Soft to palpation, non-tender, No hepatosplenomegaly present and no masses PALPATION: Yes Soft to palpation and Yes No hepatosplenomegaly present : COMMON NORMALS: Yes no CVA tenderness BLADDER/KIDNEY EXAM: Yes no CVA tenderness Back/Pelvis: COMMON NORMALS: no CVA tenderness Extremity: COMMON NORMALS: normal to inspection Neuro: COMMON NORMALS: patient oriented x3, CN's II-XII intact bilaterally, moves all extremities, no focal motor deficits and no sensory deficits noted SENSORIUM/ORIENTATION: Yes alert Course Vital Signs: Vital signs: Vital Signs Temperature 96.1 F L 07/17/22 11:43 Pulse Rate 75 07/17/22 15:21 Respiratory Rate 17 07/17/22 14:00 Blood Pressure 176/86 07/17/22 14:00 Pulse Oximetry 92 07/17/22 15:21 Oxygen Delivery Me thod 07/17/22 14:56 MDM - Arrhythmia/Palpitations Medical Decision Making Patient presents to the ER with 1 episode of possible chest pain and shortness of breath this morning. Patient stated went away on its own and she denies being short of breath or have any chest pain at this moment. Patient did receive 324 mg aspirin and Zofran in route per EMS. Patient's O2 sat is 98% on room air and she has no complaints during her stay here in the ER. Patient has benign physical exam. Chest pain work-up was performed that included blood work that included serial troponins which she had a delta troponin of -2.62 and EKG that showed atrial flutter. The results were discussed with the patient and her family member. They understand the unlikeliness of this being cardiac in [facility]. Patient states she is ready to go home. She will be discharged home to follow-up with her primary care physician for further evaluation and treatment. Differential Diagnosis Likely palpitations, artial fibrillation and artial flutter Lab Data 07/17/22 11:58 07/17/22 11:58 Radiology Impressions Chest X-Ray 07/17/22 12:33 IMPRESSION: No acute findings. Laboratory Results WBC 5.7 10^3/uL (4.0-10.0) 07/17/22 11:58 RBC 3.77 10^6/uL (4.1-5.3) L 07/17/22 11:58 Hgb 11.7 g/dL (11.5-15.3) 07/17/22 11:58 Hct 37.0 % (37.0-47.0) 07/17/22 11:58 MCV 98.1 fl (81-99) 07/17/22 11:58 MCH 31.0 pg (28.0-34.0) 07/17/22 11:58 MCHC 31.6 g/dL (30.0-36.0) 07/17/22 11:58 RDW 14.4 % (12.1-15.1) 07/17/22 11:58 Plt Count 168 10^3/cmm (130-400) 07/17/22 11:58 MPV 11.3 fL (7.4-10.4) H 07/17/22 11:58 Neut % (Auto) 60.6 % 07/17/22 11:58 Lymph % (Auto) 26.3 % 07/17/22 11:58 Clare % (Auto) 9.3 % 07/17/22 11:58 Eos % (Auto) 3.0 % 07/17/22 11:58 Baso % (Auto) 0.4 % 07/17/22 11:58 Neut # (Auto) 3.47 10^3/uL (1.8-7.7) 07/17/22 11:58 Lymph # (Auto) 1.5 10^3/uL (0.8-4.8) 07/17/22 11:58 Clare # (Auto) 0.5 10^3/uL (0.2-0.9) 07/17/22 11:58 Eos # (Auto) 0.2 10^3/uL (0.0-0.8) 07/17/22 11:58 Baso # (Auto) 0.0 10^3/uL (0.0-0.1) 07/17/22 11:58 Nucleated RBC % (auto) 0 % 07/17/22 11:58 Nucleated RBCs # 0.0 /100WBC 07/17/22 11:58 Sodium 138 mmol/L (136-145) 07/17/22 11:58 Potassium 3.9 mmol/L (3.5-5.1) 07/17/22 11:58 Chloride 104 mmol/L (98-107) 07/17/22 11:58 Carbon Dioxide 25 mmol/L (22-29) 07/17/22 11:58 Anion Gap 12.9 (5-19) 07/17/22 11:58 BUN 12 mg/dL (8-23) 07/17/22 11:58 Creatinine 0.9 mg/dL (0.5-0.9) 07/17/22 11:58 GFR Calculation Not Reportable 07/17/22 11:58 Glucose 100 mg/dL (65-115) 07/17/22 11:58 Calculated Osmolality 286 mOsm/kg (285-295) 07/17/22 11:58 Calcium 8.7 mg/dL (8.5-10.5) 07/17/22 11:58 Magnesium 2.3 mg/dL (1.7-2.3) 07/17/22 11:58 Total Bilirubin 0.5 mg/dL (0.15-1.2) 07/17/22 11:58 AST 16 U/L (0-32) 07/17/22 11:58 ALT 7 U/L (0-33) 07/17/22 11:58 Alkaline Phosphatase 102 U/L (35-105) 07/17/22 11:58 Troponin T Baseline 12 ng/L (0-10) H 07/17/22 11:58 Troponin T 120 Minute 9.38 ng/L (0-10) 07/17/22 13:49 Delta Troponin T -2.62 ABS# (0-10) L 07/17/22 13:49 Total Protein 6.8 g/dL (6.6-8.7) 07/17/22 11:58 Albumin 3.8 g/dL (3.5-5.2) 07/17/22 11:58 Globulin 3.0 g/dL (1.3-4.6) 07/17/22 11:58 EKG Data EKG 1: I personally reviewed and interpreted this EKG as follows: EKG interpretation date: 07/17/22 EKG interpretation time: 11:55 Prior EKG tracings: not available for review Ischemic changes: non-specific ST-T wave changes Interpretation: EKG showed atrial fibrillation with a ventricular rate of 64 beats a minute, nonspecific ST-T wave abnormality, QRS duration of 90, QTc of 432 Other EKG comments: Chest X-Ray 07/17/22 12:33 IMPRESSION: No acute findings. Discharge Plan Discharge Patient Disposition: Home Clinical Impression: Atrial fibrillation Qualifiers: Atrial fibrillation type: longstanding persistent Qualified Code(s): I48.11 - Longstanding persistent atrial fibrillation Dementia Qualifiers: Dementia type: unspecified type Dementia severity: mild Dementia behavioral or psychological symptom: without behavioral, psychotic, or mood disturbance or anxiety Qualified Code(s): F03.A0 - Unspecified dementia, mild, without behavioral disturbance, psychotic disturbance, mood disturbance, and anxiety Condition: Stable Prescriptions: No Action metoprolol tartrate 25 mg tablet 25 mg PO BID Qty: 60 2RF Rx Instructions: for heart and blood pressure furosemide [Lasix] 20 mg tablet 20 mg PO QAM Qty: 30 2RF clopidogrel [Plavix] 75 mg tablet 75 mg PO DAILY Qty: 30 2RF sertraline [Zoloft] 50 mg tablet 50 mg PO DAILY Qty: 30 2RF Rx Instructions: take it for moods and anger chlorhexidine gluconate [Peridex] 0.12 % mouthwash 15 ml buccal BID Qty: 473 2RF nitroglycerin [Nitrostat] 0.4 mg tablet, sublingual 0.4 mg SUBLINGUAL Q5M PRN (Reason: CHEST PAINS) Qty: 50 5RF potassium chloride 10 mEq tablet extended release 20 meq PO BID Discharge Orders: Discharge ED (Routine); Ordered 07/17/22 Ordered By: Adria Gan Referrals: Ed Michael, [employer] UTILITY WORKER-C [Primary Care Provider] - 1 week Discharge Activity: Resume usual activity Patient Instructions: Atrial Fibrillation Coding Level of Care Code ED Handle 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
--- NOTE | 2022-07-17 12:33 | XRR_ITS ---
PROCEDURE INFORMATION: Exam: XR Chest Exam date and time: 07/17/2022 1:05 PM Age: 82 years old Clinical indication: Dyspnea; Patient HX: Cp and heart flutter TECHNIQUE: Imaging protocol: Radiologic exam of the chest. Views: 1 view. COMPARISON: CR XR chest 2V* [id number] 09/20/2021 11:19 AM FINDINGS: Lungs: Unremarkable. No consolidation. Pleural spaces: Unremarkable. No pleural effusion. No pneumothorax. Heart/Mediastinum: Unremarkable. No cardiomegaly. Bones/joints: Unremarkable. XR/XR chest 1V portable [id number] IMPRESSION: No acute findings.
[2022-07-17 12:41] LABS: Basophils % 0.4 %; Eosinophils # 0.2 10^3/uL (0.0-0.8); Hemoglobin 11.7 g/dL (11.5-15.3); Lymphocytes # 1.5 10^3/uL (0.8-4.8); Lymphocytes % 26.3 %; Mean Corpuscular HGB Conc 31.6 g/dL (30.0-36.0); Mean Corpuscular Volume 98.1 fl (81-99); Mean Platelet Volume 11.3 fL (7.4-10.4); Monocytes # 0.5 10^3/uL (0.2-0.9); Monocytes % 9.3 %; Neutrophils # 3.47 10^3/uL (1.8-7.7); Neutrophils % 60.6 %; Nucleated Red Blood Cells % 0 %; Platelet Count 168 10^3/cmm (130-400); Red Blood Count 3.77 10^6/uL (4.1-5.3); Red Cell Distribution Width 14.4 % (12.1-15.1); White Blood Count 5.7 10^3/uL (4.0-10.0)
[2022-07-17 12:54] LABS: Troponin(5th) Baseline 12 ng/L (0-10)
[2022-07-17 13:03] LABS: Alanine Aminotransferase 7 U/L (0-33); Albumin Level 3.8 g/dL (3.5-5.2); Alkaline Phosphatase 102 U/L (35-105); Blood Urea Nitrogen 12 mg/dL (8-23); Calcium 8.7 mg/dL (8.5-10.5); Carbon Dioxide 25 mmol/L (22-29); Chloride 104 mmol/L (98-107); Glucose 100 mg/dL (65-115); Magnesium 2.3 mg/dL (1.7-2.3); Osmolality Calculated 286 mOsm/kg (285-295); Sodium 138 mmol/L (136-145); Total Bilirubin 0.5 mg/dL (0.15-1.2); Total Protein 6.8 g/dL (6.6-8.7)
[2022-07-17 13:24] LABS: Anion Gap 12.9 (5-19); Aspartate Amino Transferase 16 U/L (0-32); Potassium 3.9 mmol/L (3.5-5.1)
[2022-07-17 14:17] LABS: Troponin 5 2HR 9.38 ng/L (0-10)
[2022-07-17 14:25] LABS: Troponin 5 2HR Delta -2.62 ABS# (0-10)
== END 2022-07-17 15:23 | disposition home or self-care (01) ==
PROVIDERS: Emergency Provider Emergency Medicine; PCP Nurse Practitioner
DX: I48.11 Longstanding persistent atrial fibrillation (principal); F03.A0 Unspecified dementia, mild, without behavioral disturbance, psychotic disturbance, mood disturbance, and anxiety; Z79.02 Long term (current) use of antithrombotics/antiplatelets; E78.5 Hyperlipidemia, unspecified; I10 Essential (primary) hypertension; J44.9 Chronic obstructive pulmonary disease, unspecified
CPT/HCPCS: 71045; 80053; 83735; 84484; 85025; 93005; 99285

== ENCOUNTER → 2022-09-03 11:36 | Outpatient (BNVA) | payer MEDICARE, OTHER, SELFPAY | PROVIDERS: PCP Nurse Practitioner; Visit Provider Nurse Practitioner | DX: K05.6 Periodontal disease, unspecified (principal); K06.9 Disorder of gingiva and edentulous alveolar ridge, unspecified; I10 Essential (primary) hypertension; R45.4 Irritability and anger; E87.6 Hypokalemia; F03.90 Unspecified dementia, unspecified severity, without behavioral disturbance, psychotic disturbance, mood disturbance, and anxiety; F32.9 Major depressive disorder, single episode, unspecified; F41.9 Anxiety disorder, unspecified; R07.89 Other chest pain; J06.9 Acute upper respiratory infection, unspecified; I67.9 Cerebrovascular disease, unspecified; F03.A0 Unspecified dementia, mild, without behavioral disturbance, psychotic disturbance, mood disturbance, and anxiety | CPT/HCPCS: 80053; 80061; 82607; 84443 ==

== ENCOUNTER 2022-09-04 17:36 | Emergency (ER) | payer MEDICARE, OTHER, SELFPAY ==
[2022-09-04 17:40] VITALS: BP 175/102; PULSE 67; RESP 16; TEMP 36.6; O2SAT 97; BMI 21.1
[2022-09-04 17:47] VITALS: BP 160/99; PULSE 100; RESP 18
--- NOTE | 2022-09-04 17:50 | XRR_ITS ---
PROCEDURE INFORMATION: Exam: XR Left Hip Exam date and time: 09/04/2022 6:09 PM Age: 82 years old Clinical indication: Injury or trauma; Fall; Blunt trauma (contusions or hematomas); Left; Hip; Additional info: Fall pain TECHNIQUE: Imaging protocol: Radiologic exam of the left hip. Views: 2 or 3 views hip with pelvis when performed. COMPARISON: CR XR hip BI 3-4V wo/w pel [id number] 12/16/2019 9:55 AM FINDINGS: Bones/joints: No acute fracture. Soft tissues: Unremarkable. XR/XR hip LT 2-3V wo/w pel* [id number] IMPRESSION: No acute findings.
--- NOTE | 2022-09-04 17:50 | CTR_ITS ---
PROCEDURE INFORMATION: Exam: CT Chest Without Contrast; Diagnostic Exam date and time: 09/04/2022 6:35 PM Age: 82 years old Clinical indication: Injury or trauma; Fall; Blunt trauma (contusions or hematomas); Additional info: Fall, left lat rib pain TECHNIQUE: Imaging protocol: Diagnostic computed tomography of the chest without contrast. Radiation optimization: All CT scans at this facility use at least one of these dose optimization techniques: automated exposure control; mA and/or kV adjustment per patient size (includes targeted exams where dose is matched to clinical indication); or iterative reconstruction. REPORTING DATA: Count of CT and Cardiac NM exams in prior 12 months: This patient has received 0 known CTs and 0 known cardiac nuclear medicine studies in the 12 months prior to the current study. COMPARISON: 1. CT angio chest PE protcl [id number] 10/19/2020 6:09 PM 2. CR XR chest 1V portable [id number] 07/17/2022 1:05 PM RADIATION DOSE METRICS: Total DLP (mGy-cm): 383 FINDINGS: Lungs: Unchanged right lower lobe calcified granuloma. Pleural spaces: Unremarkable. No pneumothorax. No pleural effusion. Heart: Unchanged cardiomegaly. Coronary arteries: Stable moderate coronary artery atherosclerosis. Lymph nodes: Calcified mediastinal nodes are unchanged and consistent with old granulomatous disease. Vasculature: Unremarkable. No aortic aneurysm. Spleen: Granuloma in the spleen are unchanged. Bones/joints: Mild T2 chronic central loss of height is unchanged. No acute fracture. Soft tissues: Unremarkable. CT/CT chest [facility] [id number] IMPRESSION: No acute traumatic findings in the chest.
--- NOTE | 2022-09-04 17:50 | CTR_ITS ---
PROCEDURE INFORMATION: Exam: CT Maxillofacial Without Contrast; Mandible Exam date and time: 09/04/2022 6:31 PM Age: 82 years old Clinical indication: Injury or trauma; Fall; Blunt trauma (contusions or hematomas); Maxilla; Additional info: Fall trauma left side TECHNIQUE: Imaging protocol: Computed tomography maxillofacial without contrast. Exam focused on the mandible. Radiation optimization: All CT scans at this facility use at least one of these dose optimization techniques: automated exposure control; mA and/or kV adjustment per patient size (includes targeted exams where dose is matched to clinical indication); or iterative reconstruction. REPORTING DATA: Count of CT and Cardiac NM exams in prior 12 months: This patient has received 0 known CTs and 0 known cardiac nuclear medicine studies in the 12 months prior to the current study. COMPARISON: CT head wo con* [id number] 10/19/2020 6:06 PM RADIATION DOSE METRICS: Total DLP (mGy-cm): 641 FINDINGS: Bones/joints: Mandible is unremarkable. No acute fracture. 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 Paranasal sinuses: Scattered paranasal sinus mucosal thickening, without air-fluid level present. Soft tissues: Unremarkable. Dental: Dental disease. CT/CT facial bones wo con* [id number] IMPRESSION: Negative mandible.
--- NOTE | 2022-09-04 17:53 | W.ED.FALL ---
HPI - Fall General: Chief Complaint: Fall Stated Complaint: Fall Time Seen by Provider: 09/04/22 17:45 History of Present Illness: Patient presents to the ER by EMS with complaints of fall down 5 stairs going into her house. Patient has left rib pain facial pain and a left upper lip laceration. Patient is currently on Plavix MD complaint: fall Onset (ago): minute(s) Fall from: standing and down stairs (#) (5 stairs) Place fall occurred: home Loss of consciousness: None Symptoms prior to fall: none Context: tripped/slipped Location of injury: face and other (Left lateral chest wall left hip) Associated symptoms-after fall: Denies abdominal pain, chest pain or neck pain Review of Systems General: Reports: 10 or more systems reviewed and unremarkable except in HPI and below Const: Denies: fever(s) or chills Eyes: Denies: change in vision or photophobia ENMT: Denies: throat pain or odynophagia Card: Denies: chest pain, palpitations or irregular heart rhythm Resp: Denies: dyspnea, productive cough or non-productive cough GI: Denies: abdominal pain, nausea or vomiting : Denies: flank pain, difficulty voiding or dysuria Musc: Reports: joint pain; Denies: neck pain or back pain PFSH ED PFSH: Medical History Anxiety and depression Cerebral vascular disease Dementia Dyslipidemia Enrolled in chronic care management Essential (primary) hypertension History of pulmonary embolism Hypokalemia Ventricular arrhythmia Weakness Surgical History Chronic obstructive lung disease H/O: hysterectomy without BSO History of appendectomy History of esophageal dilatation Hx of breast surgery Hx of tonsillectomy Family History Mother CAD (coronary artery disease) Cancer Sister CAD (coronary artery disease) Cancer Brother CAD (coronary artery disease) Cancer Father Cancer Chronic kidney disease (CKD) Daughter Cancer Chronic kidney disease (CKD) Family/Other Dementia Diabetes Denies family history of Clotting disorder Suicide Anesthesia complication Bleeding disorder Lung disease Stroke Social History Smoking and tobacco status: never smoked Second hand smoke exposure: No Smoking risk assessment/counseling performed?: No Alcohol intake: never Desire information about alcohol rehabilitation?: No Counseling given: No Substance/Drug Use: never Desire information about substance/drug rehabilitation?: No Counseling given: No Adopted: No Caregiver/support person: No Lives independently: Yes Household members: friend(s) Housing: House Marital status: / Number of children: 1 service: No Current occupational status: retired Pets and animals: Yes Pets & animals: cat(s) and dog(s) Do you think of yourself as: Straight/Heterosexual Current gender identity: Female Physical Exam Const: COMMON NORMALS: no acute distress, average body habitus, patient oriented x3, no limitations, healthy appearing, alert and well nourished HENMT: COMMON NORMALS: normocephalic and Normal external nose present HEAD & SCALP: normal to inspection and normocephalic NOSE: Normal external nose present OTHER: Tenderness to palpate over left upper lip puncture wound from patient's tooth left upper lip. Bleeding controlled. No crepitus noted. Eye: COMMON NORMALS: Equal, round and reactive pupils present, EOMs intact bilaterally, conjunctivae normal and no scleral icterus CONJUNCTIVA: Yes conjunctivae normal PUPIL: Yes Equal, round and reactive pupils present Neck/C-Spine: COMMON NORMALS: full ROM, no lymphadenopathy, supple, no meningeal signs, no JVD and Thyroid normal THYROID: Thyroid normal Chest: OTHER: Left lateral chest wall tenderness on palpation. Resp: COMMON NORMALS: normal respiratory effort, No retractions, No use of accessory muscles and clear to auscultation bilaterally AUSCULTATION: clear to auscultation bilaterally Cardio: COMMON NORMALS: no JVD, regular rate, regular rhythm, S1 normal heart sound present, S2 normal heart sound present, No gallops present (Cardio), No clicks present (Cardio), No murmurs present (Cardio) and No rub (Cardio) RATE: regular rate RHYTHM: regular rhythm HEART SOUNDS: S1 normal heart sound present and S2 normal heart sound present GI: COMMON NORMALS: Normal to inspection, nondistended, normoactive bowel sounds present, Soft to palpation, non-tender, No hepatosplenomegaly present and no masses PALPATION: Yes Soft to palpation and Yes No hepatosplenomegaly present : COMMON NORMALS: Yes no CVA tenderness BLADDER/KIDNEY EXAM: Yes no CVA tenderness Back/Pelvis: COMMON NORMALS: no CVA tenderness Extremity: OTHER: Tenderness to palpation over left hip region. Neuro: COMMON NORMALS: patient oriented x3 SENSORIUM/ORIENTATION: Yes alert MENINGEAL SIGNS: Yes no meningeal signs Course Vital Signs: Vital signs: Vital Signs Temperature 97.9 F 09/04/22 17:40 Pulse Rate 78 09/04/22 18:17 Respiratory Rate 18 09/04/22 18:17 Blood Pressure 160/99 09/04/22 17:47 Pulse Oximetry 98 09/04/22 18:17 Oxygen Delivery Me thod Room Air 09/04/22 17:40 MDM - Fall Medical Decision Making Patient presents to the ER with complaints of falling down 5 stairs and having left facial and left rib pain and left hip pain. Patient had these areas x-rayed and CT there are no identified acute fractures. Patient was given [place] and Zofran for the pain. Patient will be discharged home to follow-up with her primary care physician as needed. Differential Diagnosis Likely concussion without loss of consciousness; Unlikely syncope, dislocation of shoulder region, fracture of wrist, compression fracture or concussion with loss of consciousness Medical Records I reviewed the patient's medical records. Lab Data I reviewed the patient's lab results. Radiology Impressions Chest CT 09/04/22 17:50 IMPRESSION: No acute traumatic findings in the chest. Face CT 09/04/22 17:50 IMPRESSION: Negative mandible. Hip/Pelvis X-Ray 09/04/22 17:50 IMPRESSION: No acute findings. Discharge Plan Discharge Patient Disposition: Home Clinical Impression: Fall down stairs, Contusion of face, Acute chest wall pain, Acute hip pain Condition: Stable Prescriptions: No Action chlorhexidine gluconate [Peridex] 0.12 % mouthwash 15 ml buccal BID Qty: 473 2RF clopidogrel [Plavix] 75 mg tablet 75 mg PO DAILY Qty: 30 2RF furosemide [Lasix] 20 mg tablet 20 mg PO QAM Qty: 30 2RF metoprolol tartrate 25 mg tablet 25 mg PO BID Qty: 60 2RF Rx Instructions: for heart and blood pressure sertraline [Zoloft] 50 mg tablet 50 mg PO DAILY Qty: 30 2RF Rx Instructions: take it for moods and anger Dimetapp DM Cold-Cough (PE) 1-2.5-5 mg/5 mL solution 5 ml PO .2 times day Qty: 118 0RF potassium chloride 10 mEq tablet extended release 20 meq PO DAILY Qty: 60 2RF nitroglycerin [Nitrostat] 0.4 mg tablet, sublingual 0.4 mg SUBLINGUAL Q5M PRN (Reason: CHEST PAINS) Qty: 50 5RF Discharge Orders: Discharge ED (Routine); Ordered 09/04/22 Ordered By: Adria Gan Referrals: Ed Michael, DIETARY CLERK-C [Primary Care Provider] - Patient Instructions: Fall Prevention, Contusion in Adults (ED) Coding Level of Care Code ED C[employer] Bi Administrator for Rony Dwyer
[2022-09-04 18:17] VITALS: PULSE 78; RESP 18; O2SAT 98
[2022-09-04] MEDS: HYDROcodone-acetaminophen 5-325 mg Tablet 1 TAB PO (19:34)
[2022-09-04] MEDS: ondansetron 4 MG Tablet PO (19:34)
[2022-09-04 20:39] VITALS: BP 175/102; RESP 18; O2SAT 96
[2022-09-04 20:41] VITALS: BP 161/104; PULSE 77; RESP 18; O2SAT 96
== END 2022-09-04 20:50 | disposition home or self-care (01) ==
PROVIDERS: Emergency Provider Emergency Medicine; PCP Nurse Practitioner
DX: S00.83XA Contusion of other part of head, initial encounter (principal); S01.531A Puncture wound without foreign body of lip, initial encounter; F03.90 Unspecified dementia, unspecified severity, without behavioral disturbance, psychotic disturbance, mood disturbance, and anxiety; E78.5 Hyperlipidemia, unspecified; I10 Essential (primary) hypertension; J44.9 Chronic obstructive pulmonary disease, unspecified; R07.89 Other chest pain; M25.552 Pain in left hip; Z79.82 Long term (current) use of aspirin; W10.9XXA Fall (on) (from) unspecified stairs and steps, initial encounter; Y92.019 Unspecified place in single-family (private) house as the place of occurrence of the external cause
CPT/HCPCS: 70486; 71250; 73502; 99284; Q0162

== ENCOUNTER → 2023-01-28 15:30 | Outpatient (BNVA) | payer MEDICARE, OTHER, SELFPAY | PROVIDERS: PCP Nurse Practitioner; Visit Provider Nurse Practitioner | DX: K05.6 Periodontal disease, unspecified (principal); K06.9 Disorder of gingiva and edentulous alveolar ridge, unspecified; I67.9 Cerebrovascular disease, unspecified; I10 Essential (primary) hypertension; E87.6 Hypokalemia; R45.4 Irritability and anger; E53.8 Deficiency of other specified B group vitamins; E55.9 Vitamin D deficiency, unspecified; R73.9 Hyperglycemia, unspecified | CPT/HCPCS: 80053; 82306; 82607; 83036; 85025 ==

== ENCOUNTER → 2023-07-29 13:34 | Outpatient (BNVA) | payer MEDICARE, OTHER, SELFPAY | PROVIDERS: PCP Nurse Practitioner; Visit Provider Nurse Practitioner | DX: R42 Dizziness and giddiness (principal); N39.0 Urinary tract infection, site not specified; E53.8 Deficiency of other specified B group vitamins; I67.9 Cerebrovascular disease, unspecified; I10 Essential (primary) hypertension; E87.6 Hypokalemia; R45.4 Irritability and anger; Z79.899 Other long term (current) drug therapy | CPT/HCPCS: 81000; 87077; 87086; 87184 ==

== ENCOUNTER 2023-08-03 15:51 | Emergency (ER) | payer MEDICARE, OTHER, SELFPAY ==
[2023-08-03 15:56] VITALS: BP 164/94; PULSE 58; RESP 14; TEMP 36.4; O2SAT 93
--- NOTE | 2023-08-03 16:04 | XRR_ITS ---
PROCEDURE INFORMATION: Exam: XR Chest Exam date and time: 08/03/2023 4:17 PM Age: 83 years old Clinical indication: Other: AMS; Additional info: Altered mental status TECHNIQUE: Imaging protocol: Radiologic exam of the chest. Views: 1 view. COMPARISON: CT chest [facility] [id number] 09/04/2022 6:35 PM FINDINGS: Lungs: Unchanged calcified granuloma in the left lung base. Otherwise, unremarkable. Pleural spaces: Unremarkable. No pleural effusion. No pneumothorax. Heart/Mediastinum: Unchanged mild cardiomegaly. Bones/joints: Unchanged moderate scoliosis and multilevel spondylosis. XR/XR chest 1V portable [id number] IMPRESSION: 1. Unchanged mild cardiomegaly. 2. No superimposed acute disease.
--- NOTE | 2023-08-03 16:14 | CTR_ITS ---
PROCEDURE INFORMATION: Exam: CT Head Without Contrast Exam date and time: 08/03/2023 4:30 PM Age: 83 years old Clinical indication: Injury or trauma; Fall; Blunt trauma (contusions or hematomas); Altered mental status/memory loss; Additional info: Fall, AMS, TECHNIQUE: Imaging protocol: Computed tomography of the head without contrast. Radiation optimization: All CT scans at this facility use at least one of these dose optimization techniques: automated exposure control; mA and/or kV adjustment per patient size (includes targeted exams where dose is matched to clinical indication); or iterative reconstruction. COMPARISON: CT head wo con* [id number] 10/19/2020 6:06 PM RADIATION DOSE METRICS: Total DLP (mGy-cm): 1009.78 FINDINGS: Brain: No hemorrhage. No edema. Moderate diffuse cerebral atrophy and mild sequela of chronic small vessel ischemic disease. No mass effect. Cerebral ventricles: No ventriculomegaly. Paranasal sinuses: Visualized sinuses are unremarkable. No fluid levels. Mastoid air cells: Visualized mastoid air cells are well aerated. Bones/joints: Unremarkable. No acute fracture. Soft tissues: Unremarkable. CT/CT head wo con* [id number] IMPRESSION: No acute intracranial abnormality.
[2023-08-03 16:16] LABS: Add Urine Microscopic? NO; Charge for UA Resulting for Rev
--- NOTE | 2023-08-03 16:27 | ED_ITS ---
HPI - Altered Mental Status 2 General: Chief Complaint: Altered Mental Status Stated Complaint: AMS Time Seen by Provider: 08/03/23 15:58 History of Present Illness: Patient presents to the ER with EMS for complaints of altered mental status and headache. Patient's daughter said the patient called her neighbor and told her that she was sick and was not feeling right neighbor called the daughter daughter called another neighbor that neighbor went over to see her and called 911 and had her brought here because she was found on the floor and acting altered. Patient is more confused and more off than normal. Patient does not remember how she fell in the floor. Patient does remember this was a second time she fell on the floor today. Patient is not complaining of any pain other than her head. Patient's daughter said her mom was taken to her PCP on Saturday and was started on antibiotic she thinks amoxicillin. Patient's daughter said her mother is very notoriously noncompliant with her medicine because she cannot remember to take them so she is on for sure if she is taking her antibiotic, her blood pressure medicine or her blood thinner. Review of Systems 2 General: Reports: 10 or more systems reviewed and unremarkable except in HPI and below PFSH ED 2 PFSH: Medical History Vitamin B12 deficiency Cerebral vascular disease Dementia Hypokalemia Weakness Enrolled in chronic care management Anxiety and depression Ventricular arrhythmia Dyslipidemia History of pulmonary embolism Essential (primary) hypertension Surgical History Hx of breast surgery Chronic obstructive lung disease History of esophageal dilatation History of appendectomy H/O: hysterectomy without BSO Hx of tonsillectomy Family History Mother CAD (coronary artery disease) Cancer Sister CAD (coronary artery disease) Cancer Brother CAD (coronary artery disease) Cancer Father Cancer Chronic kidney disease (CKD) Daughter Cancer Chronic kidney disease (CKD) Family/Other Dementia Diabetes Denies family history of Clotting disorder Suicide Anesthesia complication Bleeding disorder Lung disease Stroke Social History Smoking and tobacco/nicotine status: never used tobacco/nicotine Second hand smoke exposure: No Alcohol intake: never Substance/Drug Use: never Adopted: No Caregiver/support person: No Lives independently: Yes Household members: friend(s) Housing: House Marital status: / Number of children: 1 service: No Current occupational status: retired Pets and animals: Yes Pets & animals: cat(s) and dog(s) Do you think of yourself as: Straight/Heterosexual Current gender identity: Female Physical Exam 2 Const: COMMON NORMALS: no acute distress, average body habitus, healthy appearing, alert and well nourished HENMT: COMMON NORMALS: normocephalic, atraumatic, external ears normal, Normal external nose present, moist oral mucous membranes and oropharynx normal; hearing grossly not normal bilaterally (Very hard of hearing) HEAD & SCALP: n ormocephalic and atraumatic NOSE: Normal external nose present EXTERNAL EAR: Yes external ears normal Eye: COMMON NORMALS: Equal, round and reactive pupils present, EOMs intact bilaterally, conjunctivae normal and no scleral icterus CONJUNCTIVA: Yes conjunctivae normal PUPIL: Yes Equal, round and reactive pupils present Neck/C-Spine: COMMON NORMALS: full ROM, no lymphadenopathy, supple, no meningeal signs, no JVD and Thyroid normal THYROID: Thyroid normal Chest: COMMONS NORMALS: normal inspection of the chest and normal palpation of entire chest wall Resp: COMMON NORMALS: normal respiratory effort, No retractions, No use of accessory muscles and clear to auscultation bilaterally AUSCULTATION: clear to auscultation bilaterally Cardio: COMMON NORMALS: no JVD, regular rate, regular rhythm, S1 normal heart sound present, S2 normal heart sound present, No gallops present (Cardio), No clicks present (Cardio), No murmurs present (Cardio) and No rub (Cardio) R ATE: regular rate RHYTHM: regular rhythm HEART SOUNDS: S1 normal heart sound present and S2 normal heart sound present GI: COMMON NORMALS: Normal to inspection, nondistended, normoactive bowel sounds present, Soft to palpation, non-tender, No hepatosplenomegaly present and no masses PALPATION: Yes Soft to palpation and Yes No hepatosplenomegaly present Neuro: SENSORIUM/ORIENTATION: Yes alert MENINGEAL SIGNS: Yes no meningeal signs Course 2 Vital Signs: Vital signs: Vital Signs Temperature 97.5 F L 08/03/23 19:45 Pulse Rate 74 08/03/23 19:45 Respiratory Rate 16 08/03/23 19:45 Blood Pressure 154/83 08/03/23 19:45 Pulse Oximetry 97 08/03/23 19:45 Oxygen Delivery Me thod Room Air 08/03/23 19:26 MDM - Altered Mental Status Medical Decision Making Lab work was obtained, chest x-ray and head CT obtained all which was essentially benign these results was discussed with the family. Patient will be discharged to follow-up with her PCP for further evaluation and testing. Differential Diagnosis Likely altered mental status; Unlikely alcoholic intoxication, delirium, dementia, hypoglycemia, hyponatremia, subarachnoid hemorrhage or sepsis Medical Records I reviewed the patient's medical records. Lab Data I reviewed the patient's lab results. 08/03/23 17:56 08/03/23 17:56 Radiology Impressions Chest X-Ray 08/03/23 16:04 IMPRESSION: 1. Unchanged mild cardiomegaly. 2. No superimposed acute disease. Head CT 08/03/23 16:14 IMPRESSION: No acute intracranial abnormality. Laboratory Results WBC 6.54 10^3/uL (3.29-11.43) 08/03/23 17:56 Corrected WBC Cancelled 08/03/23 17:35 RBC 3.69 10^6/uL (3.85-5.65) L 08/03/23 17:56 Hgb 12.00 g/dL (11.27-16.99) 08/03/23 17:56 Hct 36.6 % (36-47) 08/03/23 17:56 MCV 99.2 fl (85-98) H 08/03/23 17:56 MCH 32.5 pg (27-33) 08/03/23 17:56 MCHC 32.8 g/dL (30-55) 08/03/23 17:56 RDW 14.0 % (12.1-15.1) 08/03/23 17:56 Plt Count 164 10^3/cmm (157-399) 08/03/23 17:56 MPV 11.3 fL (7.4-10.4) H 08/03/23 17:56 Gran % Cancelled 08/03/23 17:35 Neut % (Auto) 67.9 % 08/03/23 17:56 Lymph % (Auto) 22.5 % 08/03/23 17:56 [place] % (Auto) 7.8 % 08/03/23 17:56 Eos % (Auto) 1.2 % 08/03/23 17:56 Baso % (Auto) 0.3 % 08/03/23 17:56 Neut # (Auto) 4.44 10^3/uL (1.8-7.7) 08/03/23 17:56 Lymph # (Auto) 1.5 10^3/uL (0.8-4.8) 08/03/23 17:56 [place] # (Auto) 0.5 10^3/uL (0.2-0.9) 08/03/23 17:56 Eos # (Auto) 0.1 10^3/uL (0.0-0.8) 08/03/23 17:56 Baso # (Auto) 0.0 10^3/uL (0.0-0.1) 08/03/23 17:56 Absolute Gran (auto) Cancelled 08/03/23 17:35 Nucleated RBC % (auto) 0 % 08/03/23 17:56 Nucleated RBCs # 0.0 /100WBC 08/03/23 17:56 PT 14.20 SECONDS (12.1-14.9) 08/03/23 17:56 INR 1.07 (0.8-1.2) 08/03/23 17:56 Sodium 141 mmol/L (136-145) 08/03/23 17:56 Potassium 3.5 mmol/L (3.5-5.1) 08/03/23 17:56 Chloride 105 mmol/L (98-107) 08/03/23 17:56 Carbon Dioxide 25 mmol/L (22-29) 08/03/23 17:56 Anion Gap 14.5 (5-19) 08/03/23 17:56 BUN 13 mg/dL (8-23) 08/03/23 17:56 Creatinine 0.9 mg/dL (0.5-0.9) 08/03/23 17:56 GFR Calculation Not Reportable 08/03/23 17:56 Glucose 108 mg/dL (65-115) 08/03/23 17:56 Calculated Osmolality 293 mOsm/kg (285-295) 08/03/23 17:56 Calcium 9.2 mg/dL (8.5-10.5) 08/03/23 17:56 Magnesium 2.2 mg/dL (1.7-2.3) 08/03/23 17:56 Total Bilirubin 0.7 mg/dL (0.15-1.2) 08/03/23 17:56 AST 15 U/L (0-32) 08/03/23 17:56 ALT < 5 U/L (0-33) 08/03/23 17:56 Alkaline Phosphatase 98 U/L (35-105) 08/03/23 17:56 Creatine Kinase 33 U/L (26-192) 08/03/23 17:56 NT-Pro-B Natriuret Pep 1124 pg/mL (0-450) H 08/03/23 17:56 Total Protein 7.2 g/dL (6.6-8.7) 08/03/23 17:56 Albumin 4.0 g/dL (3.5-5.2) 08/03/23 17:56 Globulin 3.2 g/dL (1.3-4.6) 08/03/23 17:56 Urine Color Straw (Yellow) 08/03/23 06:02 Urine Appearance Clear (CLEAR) 08/03/23 06:02 Urine pH 6 (5-7) 08/03/23 06:02 Ur Specific [place] 1.010 (1.005-1.030) 08/03/23 06:02 Urine Protein Neg (Negative) 08/03/23 06:02 Urine Glucose (UA) Norm (Normal) 08/03/23 06:02 Urine Ketones Negative (Negative) 08/03/23 06:02 Urine Blood Neg (Negative) 08/03/23 06:02 Urine Nitrate Negative (Negative) 08/03/23 06:02 Urine Bilirubin Neg (Negative) 08/03/23 06:02 Urine Urobilinogen Norm mg/dL (Negative) 08/03/23 06:02 Ur Leukocyte Esterase Negative (Negative) 08/03/23 06:02 All radiology interpretation(s) finalized by discharge Discharge Plan Discharge Patient Disposition: Home Clinical Impression: Fall Qualifiers: Encounter type: initial encounter Qualified Code(s): W19.XXXA - Unspecified fall, initial encounter Headache Qualifiers: Headache type: unspecified Headache chronicity pattern: acute headache I ntractability: not intractable Qualified Code(s): R51.9 - Headache, unspecified Hypertension Qualifiers: Hypertension type: unspecified Qualified Code(s): I10 - Essential (primary) hypertension Condition: Stable Prescriptions: No Action benzocaine 20 % gel 1 applic mucous membrane QID PRN (Reason: tooth and gum pain) Qty: 30 0RF cyanocobalamin (vitamin B-12) 1,000 mcg/mL solution 1,000 mcg IM .monthly Qty: 1 2RF clopidogrel [Plavix] 75 mg tablet 75 mg PO DAILY Qty: 30 2RF furosemide [Lasix] 20 mg tablet 20 mg PO QAM Qty: 30 2RF metoprolol tartrate 25 mg tablet 25 mg PO BID Qty: 60 2RF Rx Instructions: for heart and blood pressure potassium chloride 10 mEq tablet extended release 20 meq PO DAILY Qty: 60 2RF sertraline [Zoloft] 50 mg tablet 50 mg PO DAILY Qty: 30 2RF Rx Instructions: take it for moods and anger cefuroxime axetil 500 mg tablet 500 mg PO BID Qty: 20 0RF nitroglycerin [Nitrostat] 0.4 mg tablet, sublingual 0.4 mg SUBLINGUAL Q5M PRN (Reason: CHEST PAINS) Qty: 50 5RF Discharge Orders: Discharge ED (Routine); Ordered 08/03/23 Ordered By: Adria Gan Referrals: Ed Michael, TELEVISION MAINTENANCE WORKER-C [Primary Care Provider] - 1 week Patient Instructions: Hypertension, Fall Prevention for Older Adults (ED), Acute Headache (ED) Activity Restrictions/Additional Instructions: Your lab work did not show any unusual results that would explain your headache, hypertension fall or weakness. Your head CT and chest x-ray was unremarkable. Please follow-up with your family practice physician within 7 days for further evaluation and testing as needed. Coding Level of Care Code ED Farm Specialist for Rony Dwyer
--- NOTE | 2023-08-03 16:38 | PC.PHAR ---
PT IS TAKING ANTIBIOTIC CEFUROXIME 500 MG TWICE DAILY. FAMILY IS UNSURE IF SHE IS TAKING THEM. PT PICKED UP MEDS 07/29/23 BUT FAMILY STATES SHE TAKES VERY FEW OF THEM. 08/03/23
[2023-08-03 16:42] LABS: Urine Appearance Clear (CLEAR); Urine Color Straw (Yellow)
[2023-08-03 16:43] LABS: Bilirubin Urine Neg (Negative); Blood Urine Neg (Negative); Glucose Urine UA Norm (Normal); Ketones Urine Negative (Negative); Leukocyte Esterase Urine Negative (Negative); Nitrate Urine Negative (Negative); Protein Urine Neg (Negative); Urobilinogen Urine Norm (Negative); pH Urine 6 (5-7)
--- NOTE | 2023-08-03 16:43 | ECG_ITS ---
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 Measurements Intervals [place] Rate: 69 P: 0 RI: 0 QRS: 13 QRSD: 102 T: 215 QT: 308 QTc: 330 Interpretive Statements ATRIAL FIBRILLATION NONSPECIFIC ST & T-WAVE ABNORMALITY Compared to ECG 07/17/2022 11:55:28 No significant changes Electronically Signed On 08-04-2023 18:35:57 CDT by Glenn Solo M.D. [email or web address] [id number]
[2023-08-03 18:02] LABS: Basophils % 0.3 %; Eosinophils # 0.1 10^3/uL (0.0-0.8); Eosinophils % 1.2 %; Hematocrit 36.6 % (36-47); Lymphocytes # 1.5 10^3/uL (0.8-4.8); Lymphocytes % 22.5 %; Mean Corpuscular HGB Conc 32.8 g/dL (30-55); Mean Corpuscular Hemoglobin 32.5 pg (27-33); Mean Corpuscular Volume 99.2 fl (85-98); Mean Platelet Volume 11.3 fL (7.4-10.4); Monocytes # 0.5 10^3/uL (0.2-0.9); Monocytes % 7.8 %; Neutrophils # 4.44 10^3/uL (1.8-7.7); Neutrophils % 67.9 %; Nucleated Red Blood Cells % 0 %; Platelet Count 164 10^3/cmm (157-399); Red Blood Count 3.69 10^6/uL (3.85-5.65); White Blood Count 6.54 10^3/uL (3.29-11.43)
[2023-08-03 18:16] LABS: INR 1.07 (0.8-1.2)
[2023-08-03 18:32] LABS: Alanine Aminotransferase < 5 U/L (0-33); Alkaline Phosphatase 98 U/L (35-105); Anion Gap 14.5 (5-19); Aspartate Amino Transferase 15 U/L (0-32); Blood Urea Nitrogen 13 mg/dL (8-23); Calcium 9.2 mg/dL (8.5-10.5); Carbon Dioxide 25 mmol/L (22-29); Chloride 105 mmol/L (98-107); Creatine Phosphokinase 33 U/L (26-192); Globulin 3.2 g/dL (1.3-4.6); Glucose 108 mg/dL (65-115); Magnesium 2.2 mg/dL (1.7-2.3); NT Pro B Type Natriuretic Pept 1124 pg/mL (0-450); Osmolality Calculated 293 mOsm/kg (285-295); Potassium 3.5 mmol/L (3.5-5.1); Sodium 141 mmol/L (136-145); Total Bilirubin 0.7 mg/dL (0.15-1.2); Total Protein 7.2 g/dL (6.6-8.7)
[2023-08-03 18:41] VITALS: BP 188/114; PULSE 58; RESP 16; O2SAT 94
[2023-08-03] MEDS: acetaminophen 500 mg Tablet 1000 MG PO (18:54)
[2023-08-03] MEDS: ondansetron 2 mg/ML SDV 2 mL 4 MG IVP (18:54)
[2023-08-03] MEDS: hyDRALAzine 20 mg/mL INJ 1 mL 10 MG IVP (18:54)
--- NOTE | 2023-08-03 19:10 | PC.NURSE ---
IVP Meds administered by DILIP Ren.
[2023-08-03 19:26] VITALS: BP 154/83; PULSE 74; RESP 16; O2SAT 97
[2023-08-03 19:45] VITALS: BP 154/83; PULSE 74; RESP 16; TEMP 36.4; O2SAT 97
== END 2023-08-03 19:46 | disposition home or self-care (01) ==
PROVIDERS: Emergency Provider Emergency Medicine; PCP Nurse Practitioner
DX: R51.9 Headache, unspecified (principal); I10 Essential (primary) hypertension; F03.90 Unspecified dementia, unspecified severity, without behavioral disturbance, psychotic disturbance, mood disturbance, and anxiety; E78.5 Hyperlipidemia, unspecified; J44.9 Chronic obstructive pulmonary disease, unspecified
CPT/HCPCS: 36415; 70450; 71045; 80053; 81003; 82550; 83735; 83880; 85025; 85610; 93005; 96374; 96375; 99285; J0360; J2405

== ENCOUNTER 2023-09-11 19:06 | Inpatient (IN) | payer MEDICARE, OTHER, SELFPAY ==
[2023-09-11] VITALS (21 sets, daily range): BP systolic 160–188; BP diastolic 85–130; PULSE 66–102; RESP 12–24; TEMP 36.5; O2SAT 93–99; BMI 24.2
--- NOTE | 2023-09-11 19:10 | XRR_ITS ---
PROCEDURE INFORMATION: Exam: XR Chest Exam date and time: 09/11/2023 7:46 PM Age: 83 years old Clinical indication: Other: AMS; Patient HX: Si & hi TECHNIQUE: Imaging protocol: Radiologic exam of the chest. Views: 1 view. COMPARISON: CR (CHEST, ) 08/03/2023 4:17 PM FINDINGS: Lungs: There are decreased lung volumes with atelectasis at the lung bases and vascular crowding. There is also mild interstitial edema throughout both lungs. No dense consolidation. Pleural spaces: Unremarkable. No pleural effusion. No pneumothorax. Heart/Mediastinum: Probable calcified lymph nodes in the right hilum. There is stable cardiomegaly. Rounded density projecting over the heart is stable large hiatal hernia. Bones/joints: S curve scoliosis with moderate degenerative changes throughout the spine. XR/XR chest 1V portable [id number] IMPRESSION: Cardiomegaly with pulmonary edema consistent with congestive failure. Large hiatal hernia.
--- NOTE | 2023-09-11 19:10 | CTR_ITS ---
PROCEDURE INFORMATION: Exam: CT Head Without Contrast Exam date and time: 09/11/2023 7:24 PM Age: 83 years old Clinical indication: Altered mental status/memory loss; Additional info: AMS TECHNIQUE: Imaging protocol: Computed tomography of the head without contrast. Radiation optimization: All CT scans at this facility use at least one of these dose optimization techniques: automated exposure control; mA and/or kV adjustment per patient size (includes targeted exams where dose is matched to clinical indication); or iterative reconstruction. Other technique: STROKE PROTOCOL was implemented. COMPARISON: CT head wo con* [id number] 08/03/2023 4:30 PM RADIATION DOSE METRICS: Total DLP (mGy-cm): 1091 FINDINGS: Brain: Age appropriate atrophy and small vessel ischemic change. No evidence of intracranial hemorrhage, mass effect, midline shift or extra-axial fluid collections. Midline structures are normal. Al-white matter differentiation is normal. Cerebral ventricles: No ventriculomegaly. Paranasal sinuses: Visualized sinuses are unremarkable. No fluid levels. Mastoid air cells: Visualized mastoid air cells are well aerated. Orbital cavities: The patient has had bilateral lens replacement surgery. Bones: Unremarkable. No acute fracture. Soft tissues: Unremarkable. Vasculature: Carotid and vertebral artery atherosclerotic calcification. CT/CT head wo con* [id number] IMPRESSION: No acute intracranial abnormality. ASSESSMENT: ASPECTS (Arti Stroke Program Early CT Score) is 10.
--- NOTE | 2023-09-11 19:11 | ED.C_ITS ---
HPI - Psych 2 General: Chief Complaint: Altered Mental Status Stated Complaint: AMS, SI, HI Time Seen by Provider: 09/11/23 19:06 Source: EMS Mode of arrival: EMS Limitations: altered mental status History of Present Illness: 83-year-old female who per EMS has had i ncreasing confusion throughout the day per family. She does have a history of dementia but states she is very confused throughout the day and has been extremely combative EMS states she is attacking her family and had to call police she is attacking a place and intact EMS. She told EMS that she went to kill her wanting to kill herself but states she was not making much sense with them. Patient was given 5 mg of Haldol IM then 100 of ketamine IM and then given another 225 of ketamine IV she is currently sedated at this time Review of Systems 2 General: Reports: ROS unobtainable due to mental status PFS ED 2 PFSH: Medical History Vitamin B12 deficiency Cerebral vascular disease Dementia Hypokalemia Weakness Enrolled in chronic care management Anxiety and depression Ventricular arrhythmia Dyslipidemia History of pulmonary embolism Essential (primary) hypertension Surgical History Hx of breast surgery Chronic obstructive lung disease History of esophageal dilatation History of appendectomy H/O: hysterectomy without BSO Hx of tonsillectomy Family History Mother CAD (coronary artery disease) Cancer Sister CAD (coronary artery disease) Cancer Brother CAD (coronary artery disease) Cancer Father Cancer Chronic kidney disease (CKD) Daughter Cancer Chronic kidney disease (CKD) Family/Other Dementia Diabetes Denies family history of Clotting disorder Suicide Anesthesia complication Bleeding disorder Lung disease Stroke Social History Smoking and tobacco/nicotine status: never used tobacco/nicotine Second hand smoke exposure: No Alcohol intake: never Substance/Drug Use: never Adopted: No Caregiver/support person: No Lives independently: Yes Household members: friend(s) Housing: House Marital status: / Number of children: 1 service: No Current occupational status: retired Pets and animals: Yes Pets & animals: cat(s) and dog(s) Do you think of yourself as: Straight/Heterosexual Current gender identity: Female Physical Exam 2 Const: COMMON NORMALS: negative for patient oriented x3 EXAM LIMITATIONS: a ltered mental status HENMT: COMMON NORMALS: normocephalic and atraumatic HEAD & SCALP: n ormocephalic and atraumatic Eye: COMMON NORMALS: Equal, round and reactive pupils present and EOMs intact bilaterally PUPIL: Yes Equal, round and reactive pupils present Neck/C-Spine: COMMON NORMALS: full ROM and supple Chest: COMMONS NORMALS: normal inspection of the chest and normal palpation of entire chest wall Resp: COMMON NORMALS: No retractions and No use of accessory muscles A USCULTATION: rales Cardio: COMMON NORMALS: regular rate, regular rhythm and No murmurs present (Cardio) RATE: regular rate RHYTHM: regular rhythm GI: COMMON NORMALS: Normal to inspection, nondistended, normoactive bowel sounds present, Soft to palpation, non-tender and no masses PALPATION: Yes Soft to palpation Extremity: COMMON NORMALS: normal to inspection and full ROM Neuro: COMMON NORMALS: moves all extremities and no focal motor deficits; negative for patient oriented x3 Psych: COMMON NORMALS: negative for mental status grossly normal and negative for cooperative Skin: COMMON NORMALS: no rashes or lesions noted and no wounds GENERAL SKIN EXAM: no rashes or lesions noted Face to Face: Restrn/Seclusion Events leading up to initiation: Demonstrating self-destructive behavior (cutting, hitting banegas etc.) and Combative/Striking out at staff or others Evaluation of patient's immediate situation: No signs of physical distress Patient reaction since intervention applied: Continued attempts/displays harmful behavior Recent labs reviewed: Yes Review of medications: Yes Patient's current medical/behavioral condition: No new concerns since last ROS Need for restraint or seclusion is: Continued Attending notified: Yes Course 2 Vital Signs: Vital signs: Vital Signs Temperature 97.7 F 09/11/23 19:07 Pulse Rate 66 09/11/23 21:00 Respiratory Rate 17 09/11/23 21:00 Blood Pressure 160/114 09/11/23 21:00 Pulse Oximetry 94 09/11/23 21:00 Oxygen Delivery Me thod Room Air 09/11/23 20:45 Oxygen Flow Rate 4 09/11/23 19:15 MDM - Psych Medical Decision Making Patient presents here after being combative at home she had increased ultimately status throughout the day today she does have dementia patient was given large amounts of ketamine and Haldol she has been sedated while here. She does have pulm edema on chest x-ray will admit here I spoke to hospitalist along with psychiatrist the psychiatrist is consulted Medical Records I reviewed the patient's medical records. Lab Data I reviewed the patient's lab results. 09/11/23 19:45 09/11/23 19:45 Radiology Impressions Chest X-Ray 09/11/23 19:10 IMPRESSION: Cardiomegaly with pulmonary edema consistent with congestive failure. Large hiatal hernia. Head CT 09/11/23 19:10 IMPRESSION: No acute intracranial abnormality. ASSESSMENT: ASPECTS (Arti Stroke Program Early CT Score) is 10. Laboratory Results WBC 7.04 10^3/uL (3.29-11.43) 09/11/23 19:45 RBC 3.58 10^6/uL (3.85-5.65) L 09/11/23 19:45 Hgb 11.60 g/dL (11.27-16.99) 09/11/23 19:45 Hct 35.2 % (36-47) L 09/11/23 19:45 MCV 98.3 fl (85-98) H 09/11/23 19:45 MCH 32.4 pg (27-33) 09/11/23 19:45 MCHC 33.0 g/dL (30-55) 09/11/23 19:45 RDW 14.2 % (12.1-15.1) 09/11/23 19:45 Plt Count 111 10^3/cmm (157-399) L 09/11/23 19:45 MPV 12.2 fL (7.4-10.4) H 09/11/23 19:45 Neut % (Auto) 71.4 % 09/11/23 19:45 Lymph % (Auto) 17.8 % 09/11/23 19:45 [place] % (Auto) 9.1 % 09/11/23 19:45 Eos % (Auto) 1.0 % 09/11/23 19:45 Baso % (Auto) 0.1 % 09/11/23 19:45 Neut # (Auto) 5.03 10^3/uL (1.8-7.7) 09/11/23 19:45 Lymph # (Auto) 1.3 10^3/uL (0.8-4.8) 09/11/23 19:45 [place] # (Auto) 0.6 10^3/uL (0.2-0.9) 09/11/23 19:45 Eos # (Auto) 0.1 10^3/uL (0.0-0.8) 09/11/23 19:45 Baso # (Auto) 0.0 10^3/uL (0.0-0.1) 09/11/23 19:45 Nucleated RBC % (auto) 0 % 09/11/23 19:45 Nucleated RBCs # 0.0 /100WBC 09/11/23 19:45 PT 14.00 SECONDS (12.1-14.9) 09/11/23 19:45 INR 1.04 (0.8-1.2) 09/11/23 19:45 Sodium 138 mmol/L (136-145) 09/11/23 19:45 Potassium 4.2 mmol/L (3.5-5.1) 09/11/23 19:45 Chloride 106 mmol/L (98-107) 09/11/23 19:45 Carbon Dioxide 21 mmol/L (22-29) L 09/11/23 19:45 Anion Gap 15.2 (5-19) 09/11/23 19:45 BUN 15 mg/dL (8-23) 09/11/23 19:45 Creatinine 0.9 mg/dL (0.5-0.9) 09/11/23 19:45 GFR Calculation Not Reportable 09/11/23 19:45 Glucose 152 mg/dL (65-115) H 09/11/23 19:45 Calculated Osmolality 290 mOsm/kg (285-295) 09/11/23 19:45 Calcium 8.6 mg/dL (8.5-10.5) 09/11/23 19:45 Total Bilirubin 0.7 mg/dL (0.15-1.2) 09/11/23 19:45 AST 17 U/L (0-32) 09/11/23 19:45 ALT 8 U/L (0-33) 09/11/23 19:45 Alkaline Phosphatase 90 U/L (35-105) 09/11/23 19:45 Ammonia 37 umol/L (11-51) 09/11/23 19:45 Troponin T Baseline 13 ng/L (0-10) H 09/11/23 19:45 NT-Pro-B Natriuret Pep 1803 pg/mL (0-450) H 09/11/23 19:45 Total Protein 6.8 g/dL (6.6-8.7) 09/11/23 19:45 Albumin 3.8 g/dL (3.5-5.2) 09/11/23 19:45 Globulin 3.0 g/dL (1.3-4.6) 09/11/23 19:45 TSH 8.92 uIU/mL (0.27-4.20) H 09/11/23 19:45 Urine Color Yellow (Yellow) 09/11/23 19:37 Urine Appearance Cloudy (CLEAR) A 09/11/23 19:37 Urine pH 6 (5-7) 09/11/23 19:37 Ur Specific [place] 1.025 (1.005-1.030) 09/11/23 19:37 Urine Protein Neg (Negative) 09/11/23 19:37 Urine Glucose (UA) Norm (Normal) 09/11/23 19:37 Urine Ketones 1+ (Negative) H 09/11/23 19:37 Urine Blood Neg (Negative) 09/11/23 19:37 Urine Nitrate Negative (Negative) 09/11/23 19:37 Urine Bilirubin Neg (Negative) 09/11/23 19:37 Urine Urobilinogen 4 mg/dL (Negative) H 09/11/23 19:37 Ur Leukocyte Esterase Negative (Negative) 09/11/23 19:37 Urine RBC None /hpf (0-2) 09/11/23 19:37 Urine WBC 15-25 /hpf (0-5) H 09/11/23 19:37 Ur Squamous Epith Cells 0-4 /hpf (0-5) H 09/11/23 19:37 Amorphous Sediment Not Reportable 09/11/23 19:37 Urine Bacteria 4+ /hpf (NONE) H 09/11/23 19:37 Urine Mucus Trace /hpf 09/11/23 19:37 Salicylates 0.6 mg/dL (3-10) L 09/11/23 19:45 Urine Opiates Screen Negative ng/mL (Negative) 09/11/23 19:37 Acetaminophen < 5.0 ug/mL (10-30) L 09/11/23 19:45 Ur Barbiturates Screen Negative ng/mL (Negative) 09/11/23 19:37 Ur Phencyclidine Scrn Negative ng/mL (Negative) 09/11/23 19:37 Ur Amphetamines Screen Negative ng/mL (Negative) 09/11/23 19:37 U Benzodiazepines Scrn Negative ng/mL (Negative) 09/11/23 19:37 Urine Cocaine Screen Negative ng/mL (Negative) 09/11/23 19:37 U Marijuana (THC) Screen Negative ng/mL (Negative) 09/11/23 19:37 Ethyl Alcohol < 10 mg/dL (0-10) 09/11/23 19:45 Influenza Type A Ag negative (Negative) 09/11/23 19:53 Influenza Type B Ag negative (Negative) 09/11/23 19:53 RSV Antigen Negative (Negative) 09/11/23 19:53 SARS-CoV-2 Ag (Rapid) negative (Negative) 09/11/23 19:53 All radiology interpretation(s) finalized by discharge EKG Data EKG 1: I personally reviewed and interpreted this EKG as follows: EKG interpretation date: 09/11/23 EKG interpretation time: 19:13 Interpretation: aflutter hr [address] elevation qrs 93 qtc 427 Discharge Plan Discharge Patient Disposition: Admitted As Inpatient Clinical Impression: Altered mental status, CHF exacerbation, Suicidal ideation Dementia Qualifiers: Dementia type: unspecified type Dementia severity: mild Dementia behavioral or psychological symptom: without behavioral, psychotic, or mood disturbance or anxiety Qualified Code(s): F03.A0 - Unspecified dementia, mild, without behavioral disturbance, psychotic disturbance, mood disturbance, and anxiety Condition: Stable Coding Level of Care Code ED Superintendent [employer] for Rony Dwyer
--- NOTE | 2023-09-11 19:13 | ECG_ITS ---
[facility] Test Date: 2023-09-11 Pat Name: Tara Alvarez Department: Room: Gender: Female Environment Artist: : 1940 Requested By: Eugene Martines Order Number: [id number] Nick MD: Glenn Solo M.D. Measurements Intervals [place] Rate: 71 P: 0 AL: 0 QRS: 6 QRSD: 93 T: 14 QT: 405 QTc: 440 Interpretive Statements Atrial fibrillation with a controlled ventricular response rate SEPTAL MYOCARDIAL INFARCTION , PROBABLY OLD [40+ ms Q WAVE IN V1/V2] Compared to ECG 08/03/2023 16:43:11 Myocardial infarct finding now present Atrial fibrillation no longer present T-wave abnormality no longer present Electronically Signed On 09-11-2023 20:04:07 CDT by Glenn Solo M.D. [email or web address] [email or web address].[employer]/store/OM/[id number]/[id number]
[2023-09-11 19:58] LABS: Basophils % 0.1 %; Eosinophils # 0.1 10^3/uL (0.0-0.8); Hematocrit 35.2 % (36-47); Lymphocytes # 1.3 10^3/uL (0.8-4.8); Lymphocytes % 17.8 %; Mean Corpuscular Hemoglobin 32.4 pg (27-33); Mean Corpuscular Volume 98.3 fl (85-98); Mean Platelet Volume 12.2 fL (7.4-10.4); Monocytes # 0.6 10^3/uL (0.2-0.9); Monocytes % 9.1 %; Neutrophils # 5.03 10^3/uL (1.8-7.7); Neutrophils % 71.4 %; Nucleated Red Blood Cells % 0 %; Platelet Count 111 10^3/cmm (157-399); Red Blood Count 3.58 10^6/uL (3.85-5.65); Red Cell Distribution Width 14.2 % (12.1-15.1); White Blood Count 7.04 10^3/uL (3.29-11.43)
[2023-09-11 19:59] LABS: Add Urine Microscopic? YES; Bilirubin Urine Neg (Negative); Blood Urine Neg (Negative); Glucose Urine UA Norm (Normal); Ketones Urine 1+ (Negative); Leukocyte Esterase Urine Negative (Negative); Nitrate Urine Negative (Negative); Protein Urine Neg (Negative); Specific Gravity, Urine 1.025 (1.005-1.030); Urine Appearance Cloudy (CLEAR); Urine Color Yellow (Yellow); Urobilinogen Urine 4 mg/dL (Negative); pH Urine 6 (5-7)
[2023-09-11 20:08] LABS: Amphetamines Screen Urine Negative (Negative); Barbiturates Screen Urine Negative (Negative); Benzodiazepines Screen Urine Negative (Negative); Cocaine Screen Urine Negative (Negative); Opiate Screen Urine Negative (Negative); PCP Screen Urine Negative (Negative); THC Screen Urine Negative (Negative)
[2023-09-11 20:10] LABS: Add Urine Culture? Yes; Bacteria Urine 4+ /hpf; Mucus Urine TRACE /hpf; Squamous Epithelial Cell Urine 0-4 /hpf (0-5); WBC Urine 15-25 /hpf (0-5)
[2023-09-11 20:17] LABS: Influenza A by IFA negative (Negative); Influenza B by IFA negative (Negative)
[2023-09-11 20:19] LABS: SARS Covid-2 Antigen negative (Negative)
[2023-09-11 20:26] LABS: INR 1.04 (0.8-1.2)
[2023-09-11 20:30] LABS: Alanine Aminotransferase 8 U/L (0-33); Albumin Level 3.8 g/dL (3.5-5.2); Alkaline Phosphatase 90 U/L (35-105); Aspartate Amino Transferase 17 U/L (0-32); Blood Urea Nitrogen 15 mg/dL (8-23); Calcium 8.6 mg/dL (8.5-10.5); Carbon Dioxide 21 mmol/L (22-29); Chloride 106 mmol/L (98-107); Creatinine Clr Calc Pharmacy 45.3039; Glucose 152 mg/dL (65-115); NT Pro B Type Natriuretic Pept 1803 pg/mL (0-450); Osmolality Calculated 290 mOsm/kg (285-295); Salicylate 0.6 mg/dL (3-10); Sodium 138 mmol/L (136-145); Thyroid Stimulating Hormone 8.92 uIU/mL (0.27-4.20); Total Bilirubin 0.7 mg/dL (0.15-1.2); Total Protein 6.8 g/dL (6.6-8.7)
[2023-09-11 20:34] LABS: RSV Transfer Patient (ED) Negative (Negative)
[2023-09-11 20:38] LABS: Acetaminophen < 5.0 ug/mL (10-30); Alcohol Level < 10 mg/dL (0-10); Anion Gap 15.2 (5-19); Potassium 4.2 mmol/L (3.5-5.1)
[2023-09-11] MEDS: hyDRALAzine 20 mg/mL INJ 1 mL 10 MG IVP (20:45)
[2023-09-11 20:48] LABS: Ammonia 37 umol/L (11-51)
[2023-09-11 20:52] LABS: Slide Review Slide Review Perform
[2023-09-11] MEDS: ondansetron 2 mg/ML SDV 2 mL 4 MG IVP (20:56)
[2023-09-11 21:05] LABS: Troponin(5th) Baseline 13 ng/L (0-10)
[2023-09-11] MEDS: diphenhydrAMINE 50 mg/mL SDV 1mL 25 MG IVP (21:41)
[2023-09-11] MEDS: FUROsemide 10 mg/mL SDV 4mL 40 MG IVP (21:41)
[2023-09-11] MEDS: metoclopramide 5 mg/mL SDV 2 mL IVP (21:41)
--- NOTE | 2023-09-11 21:42 | PC.NURSE ---
2142 - 96 Hour Involuntary Hold Patient Rights have been read to the patient and a copy of the same has been given to her. Patient's daughter at bedside. Server Support Technician Lianet Johnson was present at bedside at the time of presentation of Rights.
[2023-09-11] MEDS: OLANZapine 10 mg VIAL 5 MG IM (22:17)
[2023-09-11] MEDS: water for injection-sterile 10 ML (22:25)
[2023-09-11] MEDS: OLANZapine 10 mg VIAL (22:25)
--- NOTE | 2023-09-11 22:42 | ECG_ITS ---
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 Measurements Intervals [place] Rate: 80 P: 0 ND: 0 QRS: 19 QRSD: 110 T: -57 QT: 422 QTc: 487 Interpretive Statements ATRIAL FIBRILLATION SEPTAL MYOCARDIAL INFARCTION , PROBABLY OLD [40+ ms Q WAVE IN V1/V2] MODERATE T-WAVE ABNORMALITY, CONSIDER LATERAL ISCHEMIA [-0.1+ mV T-WAVE IN I/aVL/V5/V6] MODERATE T-WAVE ABNORMALITY, CONSIDER INFERIOR ISCHEMIA [-0.1+ mV T-WAVE IN II/aVF] Compared to ECG 09/11/2023 19:13:24 T-wave abnormality now present Possible ischemia now present Myocardial infarct finding still present Electronically Signed On 09-12-2023 17:23:47 CDT by Xavier Ortiz M.D. [id number]
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
[2023-09-12] VITALS (42 sets, daily range): BP systolic 101–178; BP diastolic 58–107; PULSE 58–89; RESP 12–29; TEMP 36.1–36.9; O2SAT 88–98; BMI 22.3
[2023-09-12 00:38] LABS: Lactic Sepsis W/Reflex 1.9 mmol/L (0.5-2.2)
[2023-09-12 00:47] LABS: Estmated Average Glucose 103; Hemoglobin A1C 5.2 % (4.0-6.0)
[2023-09-12 00:48] LABS: Free T4 Free Thyroxine 1.29 ng/dL (0.82-1.77); T3 Free 2.9 PG/ML (2.0-4.4)
[2023-09-12 00:54] LABS: Folate Level 5.8 ng/mL (4.8-37.3)
--- NOTE | 2023-09-12 00:54 | PC.RESP ---
2041 EKG not completed in ER.
[2023-09-12] MEDS: cefTRIAXone 1,000 MG in sodium chloride 0.9% (plus) 50 ML 100 MG IV ×2 (01:06→20:24)
[2023-09-12] MEDS: pantoprazole 40 mg SDV IVP (01:06)
[2023-09-12 01:23] LABS: Chol HDL Ratio 3.11 mg/dL (0.0-4.40); Cholesterol 190 mg/dL (0-200); HDL Cholesterol 61 mg/dL (60-100); LDL Cholesterol Calculated 112 mg/dL (50-129); LDL HDL Ratio 1.84 RATIO (0.00-3.22); Procalcitonin 0.08 ng/mL (0-0.5); Triglycerides 83 mg/dL (0-150); Vitamin B12 387 pg/mL (232-1245)
[2023-09-12] MEDS: LORazepam 2 mg/mL INJ 1 mL 1 MG IVP (01:26)
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
--- NOTE | 2023-09-12 02:42 | ECG_ITS ---
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 Measurements Intervals [place] Rate: 76 P: 0 DE: 0 QRS: 40 QRSD: 100 T: 110 QT: 395 QTc: 445 Interpretive Statements ATRIAL FIBRILLATION SEPTAL MYOCARDIAL INFARCTION , OF INDETERMINATE AGE [40+ ms Q WAVE IN V1/V2] Compared to ECG 09/12/2023 00:15:24 ST (T wave) deviation now present T-wave abnormality no longer present Possible ischemia no longer present Myocardial infarct finding still present Electronically Signed On 09-12-2023 17:21:58 CDT by Xavier Ortiz M.D. [email or web address].[employer]/store/[id number]
--- NOTE | 2023-09-12 03:53 | PC.NURSE ---
Unable to complete NIH stroke scale due to patient being mentally altered and uncooperative.
[2023-09-12 04:37] LABS: Troponin 5 6HR 14.63 ng/L (0-10); Troponin 5 6HR Delta 1.63 ng/L (0-12)
[2023-09-12 04:40] LABS: Anion Gap 16.7 (5-19); Blood Urea Nitrogen 14 mg/dL (8-23); Calcium 9.2 mg/dL (8.5-10.5); Carbon Dioxide 23 mmol/L (22-29); Chloride 101 mmol/L (98-107); Glucose 139 mg/dL (65-115); Magnesium 2.3 mg/dL (1.7-2.3); Osmolality Calculated 287 mOsm/kg (285-295); Phosphorus 3.5 mg/dL (2.5-4.5); Potassium 3.7 mmol/L (3.5-5.1); Sodium 137 mmol/L (136-145)
[2023-09-12 04:42] LABS: Creatinine Clr Calc Pharmacy 39.4188
[2023-09-12 05:43] LABS: Basophils % 0.1 %; Hematocrit 37.1 % (36-47); Lymphocytes # 0.7 10^3/uL (0.8-4.8); Lymphocytes % 8.8 %; Mean Corpuscular HGB Conc 33.4 g/dL (30-55); Mean Corpuscular Hemoglobin 32.5 pg (27-33); Mean Corpuscular Volume 97.4 fl (85-98); Mean Platelet Volume 11.4 fL (7.4-10.4); Monocytes # 0.4 10^3/uL (0.2-0.9); Monocytes % 4.6 %; Neutrophils # 7.23 10^3/uL (1.8-7.7); Neutrophils % 86.1 %; Nucleated Red Blood Cells % 0 %; Platelet Count 153 10^3/cmm (157-399); Red Blood Count 3.81 10^6/uL (3.85-5.65); Red Cell Distribution Width 14.2 % (12.1-15.1)
--- NOTE | 2023-09-12 07:41 | PC.PHAR ---
PTS DAUGHTER SELAM TAKES CARE OF PTS MEDICATIONS- PTS DAUGHTER STS SHE STOPPED GIVING PT HER CLOPIDOGREL 75 MG DAILY [address] EGAN IN THE ER TOLD HER TO STOP GIVING THE PT FUROSIMIDE 20 MG AND POTASSIUM 20 MEQ DAILY ON 08/03/23 AT HER ER VISIT.
[2023-09-12] MEDS: sertraline 50 mg Tablet PO (09:56)
[2023-09-12] MEDS: enoxaparin 40 mg/0.4 mL Syringe SUBCUT (09:56)
[2023-09-12] MEDS: OLANZapine 5 mg TABLET PO (09:56)
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
--- NOTE | 2023-09-12 18:39 | PC.NURSE ---
Shift summary: PT has rested with eyes closed for most of the shift. She was arousable enough to get the 2 am pills in with sips of water. She is starting to arouse more at end of shift. only 175 ml of urine output.
--- NOTE | 2023-09-12 19:54 | P.PN_ITS ---
Subjective 2 Subjective: Deeply asleep. Vitals/I&O/Wt Last Vital Signs Temp 97.4 F L 09/12/23 13:00 Pulse 62 09/12/23 18:00 Resp 19 H 09/12/23 18:00 BP 129/74 09/12/23 18:00 Pulse Ox 94 09/12/23 18:00 O2 Del Method Room Air 09/12/23 18:00 O2 Flow Rate 4 09/11/23 19:15 09/12/23 09/12/23 09/12/23 06:59 14:59 22:59 Intake Total 50 / 60 100 / 110 Output Total 2200 / 2200 175 / 175 Balance -2150 / -2140 -75 / -65 Weight last 48 hrs Weight 62.823 kg Weight 62.823 kg Weight 68.039 kg Physical Exam 2 Narrative: Accompanied by one-to-one sitter Const: GENERAL APPEARANCE: not cooperative ORIENTATION/CONSCIOUSNESS: not awake HENMT: COMMON NORMALS: oropharynx normal Neck/C-Spine: COMMON NORMALS: no JVD Resp: COMMON NORMALS: normal respiratory effort and clear to auscultation bilaterally AUSCULTATION: clear to auscultation bilaterally Cardio: COMMON NORMALS: no JVD, regular rhythm, S1 normal heart sound present, S2 normal heart sound present and No murmurs present (Cardio) RHYTHM: regular rhythm HEART SOUNDS: S1 normal heart sound present and S2 normal heart sound present GI: COMMON NORMALS: Normal to inspection, nondistended, normoactive bowel sounds present, Soft to palpation and non-tender PALPATION: Yes Soft to palpation Extremity: COMMON NORMALS: no joint enlargement and no pedal edema Skin: COMMON NORMALS: no rashes or lesions noted GENERAL SKIN EXAM: no rashes or lesions noted Urinary Catheter Management: Mendoza: Cath Placed During This Visit: yes Reason for Continuing Indwelling Catheter: Accurate Measurement of Urinary Output in Critically Ill Patients Urinary Catheter Date of Insertion: 09/11/23 Urinary Catheter Time of Insertion: 22:00 Data 09/12/23 03:20 09/12/23 03:20 A&P Assessment and plan (1) Altered mental status: Reviewed vitals, CBC, CMP, troponin, magnesium, TSH, free T4, free T3, folic acid, B12, procalcitonin, discussed with one-to-one sitter. She has been sleeping. Discussed with nursing staff and protective services case worker. Continue treatment of UTI. Reassess mental status. Fall precautions. With underlying dementia with superimposed acute metabolic encephalopathy secondary to urinary tract infection. Reviewed psychiatry consultation. She had received olanzapine, hold further olanzapine. Olanzapine dose changed to as needed 5 mg. Low-dose Haldol as needed. Continues on sertraline. Stop Protonix. (2) Dementia: Qualifiers: Dementia behavioral or psychological symptom: without behavioral, psychotic, or mood disturbance or anxiety Dementia severity: mild Dementia type: unspecified type Qualified Code(s): F03.A0 - Unspecified dementia, mild, without behavioral disturbance, psychotic disturbance, mood disturbance, and anxiety (3) UTI (urinary tract infection): Continue Rocephin. Urine culture reviewed, received. No results yet. (4) Pulmonary edema: She is saturating well on room air, no signs of pulmonary edema on exam. Reassess. Can move out of ICU to medical floor. Plan ? Full code ? Lovenox for DVT prophylaxis Attestations 2 Medical Necessity Statement*: Continue admission for assessment management of acute encephalopathy, superimposed on dementia, UTI in a lady of advanced age. Diagnoses Altered mental status R41.82 Dementia F03.A0 Dementia behavioral or psychological symptom: without behavioral, psychotic, or mood disturbance or anxiety Dementia severity: mild Dementia type: unspecified type UTI (urinary tract infection) N39.0 Pulmonary edema J81.1
--- NOTE | 2023-09-12 23:52 | PC.NURSE ---
NIH stroke scale incomplete and unable to obtain due to patient's altered mental status.
[2023-09-13] VITALS (23 sets, daily range): BP systolic 111–177; BP diastolic 63–106; PULSE 59–95; RESP 12–30; TEMP 36.7–36.8; O2SAT 89–94
[2023-09-13 05:28] LABS: Basophils % 0.2 %; Eosinophils # 0.1 10^3/uL (0.0-0.8); Eosinophils % 1.2 %; Hematocrit 37.2 % (36-47); Lymphocytes % 24.2 %; Mean Corpuscular HGB Conc 33.1 g/dL (30-55); Mean Corpuscular Hemoglobin 32.2 pg (27-33); Mean Corpuscular Volume 97.4 fl (85-98); Mean Platelet Volume 11.7 fL (7.4-10.4); Monocytes # 0.8 10^3/uL (0.2-0.9); Monocytes % 9.6 %; Neutrophils # 5.34 10^3/uL (1.8-7.7); Neutrophils % 64.6 %; Nucleated Red Blood Cells % 0 %; Platelet Count 168 10^3/cmm (157-399); Red Blood Count 3.82 10^6/uL (3.85-5.65); Red Cell Distribution Width 14.2 % (12.1-15.1); White Blood Count 8.27 10^3/uL (3.29-11.43)
[2023-09-13 05:51] LABS: Anion Gap 15.4 (5-19); Blood Urea Nitrogen 17 mg/dL (8-23); Carbon Dioxide 24 mmol/L (22-29); Chloride 103 mmol/L (98-107); Creatinine Clr Calc Pharmacy 35.8353; Glucose 91 mg/dL (65-115); Osmolality Calculated 289 mOsm/kg (285-295); Potassium 3.4 mmol/L (3.5-5.1); Sodium 139 mmol/L (136-145)
--- NOTE | 2023-09-13 07:48 | PC.NURSE ---
Pt awakens and then falls back to sleep or at least closes her eyes. While awake she continues to talk about needing to get out of here and wanting to call her Mom or Dad and have them comeget here because she needs to get out of here. I have attempted to redirect the pt and keep her informed as to where she is and why she is here.
[2023-09-13] MEDS: enoxaparin 40 mg/0.4 mL Syringe SUBCUT (09:08)
[2023-09-13] MEDS: sertraline 50 mg Tablet PO (09:09)
--- NOTE | 2023-09-13 11:07 | NUR.SHIFT ---
Have tried to redirect pt and have told her numerous times as to why she is here and where she is just to have her ask over and over why she is here and where she is. Pt does not seem to have any short-term retention memory. She also wants to know why hasn't anyone come to see or get her as yet. Have attempted to reach out to the hospitalist to find out why the pt remains NPO at this time as she has requested water.
--- NOTE | 2023-09-13 11:20 | NUR.SHIFT ---
Unable to perform a complete NIHSS assessment as the pt has dementia and keeps misunderstanding what is being asked for her to perform as I believe she has hearing issues. Doctors came in te see the pt and she could not answer many of the questions either for lack of understanding or lack of hearing. She appears to be neurologically intact by the way she can turn and reposition in bed and her speech is clear and easily understood. She seems to be able to follow simple commands easily as well.
--- NOTE | 2023-09-13 11:59 | PC.NURSE ---
In the past half hour the hospitalist and the psych doctors have been in to talk to the pt and assess. Pt only able to answer to name and town where she lives but nothing much else could she answer. She acknowledged taht her daughters name was Kendra when asked specifically if Kendra was her daughter's name. Pt adamant that she is wanting to go home and that she does not need to be here. Several more attempts have been made to redirect and inform the pt as to where she is and why she is here.
--- NOTE | 2023-09-13 14:52 | NUR.SHIFT ---
Daughter (Kendra) is here now to see and visit with her mother.
--- NOTE | 2023-09-13 15:48 | NUR.SHIFT ---
Pt sat in chair for <10 minutes following her T session anad daughter still in room. Pt's daughter stated taht her mother was ready to go backto bed but unsure if it was really the pt's idea as the daughter was about to leave and this expert medical writer was not in the room with them by allowing for privacy and time alone visiting. Performed linen change on the bed while daughter still here for the pt and a fresh blanket out of the blanket warmer as well. Pt seemed to be content with going back to bed. Daughter stated taht she would be back tomorrow to visit with her mother around [address] Minaya notified of this as well as he may want to visit with the pt's daughter and give an update.
--- NOTE | 2023-09-13 16:10 | P.NPUCON_ITS ---
Providers/Reason for Consult 2 Consulting Physican/Specialty*: eMkhi Miller MD/Psychiatry Reason for Consult*: agitation/aggression Attending Physician: Robert Minaya Primary Care Provider: RICARDA Corral Psych Consult HPI History of Present Illness Tara Alvarez is a 83 year old female with dementia admitted with aggression currently receiving treatment for urinary tract infection with the patient appearing encephalopathic at this time as well. The patient was arousable today and remained confused about her whereabouts. She was unable to provide any information for how she had come to be here in the hospital. She had reported having a that had brought her here but later stated that her had . She had stated that she was ready to go home but was unable to describe her current location. Patient was a unable to provide any meaningful information but appeared less sedated than the prior day. Meds Home Medications and Allergies Home Medications Medication Instructions Recorded Confirmed Last Taken Type nitroglycerin 0.4 mg sublingual 0.4 mg sublingual Q5M PRN CHEST 12/23/20 09/12/23 Unknown Rx tablet (Nitrostat) PAINS #50 tabs benzocaine 20 % mucosal gel 1 applic mucous membrane QID PRN 03/22/23 09/12/23 Unknown Rx tooth and gum pain #30 grams metoprolol tartrate 25 mg tablet 25 mg PO BID #60 tabs 07/29/23 09/12/23 Unknown Rx sertraline 50 mg tablet (Zoloft) 50 mg PO DAILY #30 tabs 07/29/23 09/12/23 Unknown Rx Allergies Allergy/AdvReac Type Severity Reaction Status Date / Time ciprofloxacin [From Cipro] Allergy Unknown Verified 08/07/23 08:36 codeine Allergy Unknown Verified 08/07/23 08:36 escitalopram [From Lexapro] Allergy Unknown Verified 08/07/23 08:36 irbesartan [From Avapro] Allergy Unknown Verified 08/07/23 08:36 losartan Allergy rash Verified 08/07/23 08:36 nitrofurantoin Allergy Unknown Verified 08/07/23 08:36 [From Macrobid] quinapril [From Accupril] Allergy Unknown Verified 08/07/23 08:36 Sulfa (Sulfonamide Allergy Unknown Verified 08/07/23 08:36 Antibiotics) Current Medications Current Medications Generic Name Dose Route Start Last Admin Trade Name Freq PRN Reason Stop Dose Admin Enoxaparin Sodium 40 mg 09/12/23 09:00 09/13/23 09:08 Enoxaparin 40 Mg/0.4 Ml Syringe SUBCUT 40 mg DAILY EKTA Administration Ceftriaxone Sodium 1,000 mg/ 50 mls @ 100 mls/hr 09/11/23 23:19 09/12/23 20:58 Sodium Chloride IV Infused BEDTIME EKTA Infusion Protocol Sertraline HCl 50 mg 09/12/23 09:00 09/13/23 09:09 Sertraline 50 Mg Tablet PO 50 mg DAILY EKTA Administration PFSH NPU 2 PFSH: Medical History Vitamin B12 deficiency Cerebral vascular disease Dementia Hypokalemia Weakness Enrolled in chronic care management Anxiety and depression Ventricular arrhythmia Dyslipidemia History of pulmonary embolism Essential (primary) hypertension Surgical History Hx of breast surgery Chronic obstructive lung disease History of esophageal dilatation History of appendectomy H/O: hysterectomy without BSO Hx of tonsillectomy Family History Mother CAD (coronary artery disease) Cancer Sister CAD (coronary artery disease) Cancer Brother CAD (coronary artery disease) Cancer Father Cancer Chronic kidney disease (CKD) Daughter Cancer Chronic kidney disease (CKD) Family/Other Dementia Diabetes Denies family history of Clotting disorder Suicide Anesthesia complication Bleeding disorder Lung disease Stroke Social History Smoking and tobacco/nicotine status: never used tobacco/nicotine Second hand smoke exposure: No Alcohol intake: never Substance/Drug Use: never Adopted: No Caregiver/support person: No Lives independently: Yes Household members: friend(s) Housing: House Marital status: / Number of children: 1 service: No Current occupational status: retired Pets and animals: Yes Pets & animals: cat(s) and dog(s) Do you think of yourself as: Straight/Heterosexual Current gender identity: Female Mental Status Exam 2 MSE Comments: Patient is a thin white female who appeared her stated age and was arousable today although fading out of consciousness multiple times. Her speech was scant and limited in spontaneity. She was able to answer some basic questions including her name. Her thought process appeared linear. She struggled with naming objects. She described her mood as fine. I want to go home now. Her affect was subdued. She did not endorse any homicidal or suicidal ideation. There was no clear evidence of delusional thinking. registration of words was 0 out of 3. Recall of 3 words was 0 out of 3. There was continued evidence of apraxia. There was evidence of anomia. She was not alert to place, date, month,year, season or day of week. She recognized her name. Her insight is impaired. Her judgment is impaired. Her impulse control remained poor. Vitals/I&O/Wt Last Vital Signs Temp 98.2 F 09/13/23 07:52 Pulse 77 09/13/23 14:00 Resp 21 H 09/13/23 12:00 BP 161/97 09/13/23 12:00 Pulse Ox 93 09/13/23 12:00 O2 Del Method Room Air 09/13/23 04:00 O2 Flow Rate 4 09/11/23 19:15 09/13/23 09/13/23 09/13/23 06:59 14:59 22:59 Intake Total 120 / 120 Output Total 100 / 275 100 / 100 Balance -100 / 5 20 / 20 Weight last 48 hrs Weight 62.823 kg Weight 62.823 kg Weight 68.039 kg Physical Exam 2 Urinary Catheter Management: Mendoza: Cath Placed During This Visit: yes Reason for Continuing Indwelling Catheter: Accurate Measurement of Urinary Output in Critically Ill Patients Urinary Catheter Date of Insertion: 09/11/23 Urinary Catheter Time of Insertion: 22:00 Data NPU 09/13/23 04:45 09/13/23 04:45 Micro: Microbiology 09/11/23 19:37 Urine Culture - Preliminary Urine,Clean Catch Gram Negative Rods Microbiology 09/11/23 19:37 Urine,Clean Catch Urine Culture - Preliminary Gram Negative Rods A&P Assessment and plan (1) Irritability and anger: (2) Anxiety and depression: (3) Dementia in other diseases classified elsewhere, unspecified severity, with agitation: Plan 83-year-old with dementia remaining encephalopathic as well with treatment for urinary tract infection. I would hold on the use of Zyprexa and start low-dose of risperidone first if needed for acute agitation and aggression. 1.start risperidone .25mg bid Attestations NPU 2 Medical Necessity Statement*: NA Coding Level of Care Code Acute Code for Chg Fwd Diagnoses Irritability and anger R45.4 Anxiety and depression F41.9; F32.9 Dementia in other diseases classified elsewhere, unspecified severity, with agitation F02.811
--- NOTE | 2023-09-13 19:46 | PM.PN ---
Subjective Subjective: She is awake, repeating I want to go home . Does respond to questions. Does not know what date or year it is. Does not know where she is nor the name of the [facility]. Discussed with her and gave her appropriate information. She cannot tell me anything about her medical conditions. With that she denies having any memory problems. Then returning to vascular again where she is having previously told her she again cannot tell me. Vitals/I&O/Wt Last Vital Signs Temp 98.2 F 09/13/23 07:52 Pulse 83 09/13/23 16:00 Resp 14 09/13/23 16:00 BP 166/87 09/13/23 16:00 Pulse Ox 93 09/13/23 16:00 O2 Del Method Room Air 09/13/23 04:00 O2 Flow Rate 4 09/11/23 19:15 09/13/23 09/13/23 09/13/23 06:59 14:59 22:59 Intake Total 120 / 120 120 / 240 Output Total 100 / 275 100 / 100 300 / 400 Balance -100 / 5 20 / 20 -180 / -160 Weight last 48 hrs Weight 62.823 kg Weight 62.823 kg Physical Exam Narrative: Accompanied by one-to-one sitter Const: COMMON NORMALS: negative for patient oriented x3 GENERAL APPEARANCE: cooperative ORIENTATION/CONSCIOUSNESS: Yes awake HENMT: COMMON NORMALS: oropharynx normal Neck/C-Spine: COMMON NORMALS: no JVD Resp: COMMON NORMALS: normal respiratory effort and clear to auscultation bilaterally AUSCULTATION: clear to auscultation bilaterally Cardio: COMMON NORMALS: no JVD, regular rhythm, S1 normal heart sound present, S2 normal heart sound present and No murmurs present (Cardio) RHYTHM: regular rhythm HEART SOUNDS: S1 normal heart sound present and S2 normal heart sound present GI: COMMON NORMALS: Normal to inspection, nondistended, normoactive bowel sounds present, Soft to palpation and non-tender PALPATION: Yes Soft to palpation Extremity: COMMON NORMALS: no joint enlargement and no pedal edema Neuro: COMMON NORMALS: negative for patient oriented x3 Skin: COMMON NORMALS: no rashes or lesions noted GENERAL SKIN EXAM: no rashes or lesions noted Urinary Catheter Management: Mendoza: Cath Placed During This Visit: yes Reason for Continuing Indwelling Catheter: Accurate Measurement of Urinary Output in Critically Ill Patients Urinary Catheter Date of Insertion: 09/11/23 Urinary Catheter Time of Insertion: 22:00 Data 09/13/23 04:45 09/13/23 04:45 Micro: Microbiology 09/11/23 19:37 Urine Culture - Preliminary Urine,Clean Catch Gram Negative Rods A&P Assessment and plan (1) Altered mental status: Today she is awake, interacting, does not appear in any distress, denies any pain or discomfort. Not oriented at all, cannot tell me any interim medical history. Unable to retain information given to her with regards to the above. Per history obtained from nursing staff does not know why she is here, has been asking to go home. Reviewed vitals, CBC, BMP. Discussed with psychiatrist. Discussed with case management director. Continue treatment of urinary tract infection. Continue reassessments of mental status, capacity. Daughter is aware of her medical problems, will be seeking guardianship. Psychiatry adjusting her antipsychotic medication. Has not made any threats today. He is more alert. Has not moved out of ICU due to lack of sitter. Discussed with case management director consideration of geriatric psychiatric admission. Reviewed psychiatry note. Continue treatment of UTI. Reassess mental status. Fall precautions. With underlying dementia with superimposed acute metabolic encephalopathy secondary to urinary tract infection. Continues on sertraline. (2) Dementia: Qualifiers: Dementia behavioral or psychological symptom: without behavioral, psychotic, or mood disturbance or anxiety Dementia severity: mild Dementia type: unspecified type Qualified Code(s): F03.A0 - Unspecified dementia, mild, without behavioral disturbance, psychotic disturbance, mood disturbance, and anxiety (3) UTI (urinary tract infection): Continue Rocephin. Reviewed urine culture. More than 100,000 gram-negative rods. (4) Pulmonary edema: Reviewed vitals. She is saturating well on room air, no signs of pulmonary edema on exam. Reassess. Can move out of ICU to medical floor. Plan ? Full code ? Lovenox for DVT prophylaxis Attestations Medical Necessity Statement*: Continue admission for assessment management of acute encephalopathy, superimposed on dementia, UTI in a lady of advanced age. and High MDM includes amount and/or complexity of data reviewed/ordered [ previous or external records, resulted lab(s)/test(s), ordered lab(s)/test(s), independent historian and other healthcare professional discussion] as documented Diagnoses Altered mental status R41.82 Dementia F03.A0 Dementia behavioral or psychological symptom: without behavioral, psychotic, or mood disturbance or anxiety Dementia severity: mild Dementia type: unspecified type UTI (urinary tract infection) N39.0 Pulmonary edema J81.1
[2023-09-13] MEDS: cefTRIAXone 1,000 MG in sodium chloride 0.9% (plus) 50 ML 100 MG IV (20:05)
[2023-09-13] MEDS: risperiDONE 0.25 mg Tablet PO (20:05)
[2023-09-14] VITALS (13 sets, daily range): BP systolic 112–165; BP diastolic 67–101; PULSE 0–94; RESP 10–28; TEMP 36.4–36.6; O2SAT 90–95
[2023-09-14 05:39] LABS: Basophils % 0.5 %; Eosinophils # 0.1 10^3/uL (0.0-0.8); Eosinophils % 1.6 %; Lymphocytes # 1.2 10^3/uL (0.8-4.8); Lymphocytes % 20.5 %; Mean Corpuscular HGB Conc 32.3 g/dL (30-55); Mean Corpuscular Hemoglobin 31.7 pg (27-33); Mean Platelet Volume 11.5 fL (7.4-10.4); Monocytes # 0.6 10^3/uL (0.2-0.9); Monocytes % 9.7 %; Neutrophils # 3.89 10^3/uL (1.8-7.7); Neutrophils % 67.4 %; Nucleated Red Blood Cells % 0 %; Platelet Count 172 10^3/cmm (157-399); Red Blood Count 3.98 10^6/uL (3.85-5.65); White Blood Count 5.77 10^3/uL (3.29-11.43)
[2023-09-14 06:05] LABS: Anion Gap 14.3 (5-19); Blood Urea Nitrogen 19 mg/dL (8-23); Calcium 8.8 mg/dL (8.5-10.5); Carbon Dioxide 26 mmol/L (22-29); Chloride 102 mmol/L (98-107); Creatinine Clr Calc Pharmacy 38.8885; Glucose 90 mg/dL (65-115); Osmolality Calculated 290 mOsm/kg (285-295); Potassium 3.3 mmol/L (3.5-5.1); Sodium 139 mmol/L (136-145)
[2023-09-14] MEDS: risperiDONE 0.25 mg Tablet PO (08:41)
[2023-09-14] MEDS: sertraline 50 mg Tablet PO (08:41)
[2023-09-14] MEDS: enoxaparin 40 mg/0.4 mL Syringe SUBCUT (08:42)
--- NOTE | 2023-09-14 09:44 | PC.NURSE ---
pt assisted up in chair at this time one on one sitter at bedside confusion remains less agitation when up in chair po meds given tolerated well no sign of aspirtation noted .
[2023-09-14] MEDS: potassium chloride ER 20 mEq Tablet PO (10:26)
--- NOTE | 2023-09-14 10:32 | W.PM.NPUPNS ---
Subjective NPU Subjective: 83-year-old female with dementia was more awake and alert today. ICU staff said that the patient appeared more pleasant and less confused. She had stated that she wished to go home. She did not appear to require any as needed antipsychotic agents to target aggression. She continued to appear confused as she was unable to describe where she was and why she had come into this facility. Mental Status Exam MSE Comments: Patient is a thin white female who appeared her stated age and was awake and alert today. Her speech was productive, normal in volume and spontaneous at times. She responded to her name but struggled with naming objects. She had no ability to register 3 words and 0/3 words at 5 minutes. She repeated that she wanted to go home. There was continued evidence of apraxia. There was evidence of anomia. She was not alert to place, date, month,year, season or day of week. Her mood was described as okay. Her affect was restricted was flat. Her insight is impaired. Her judgment is impaired. Her impulse control remained poor. Vitals/I&O/Wt Last Vital Signs Temp 98 F 09/14/23 09:00 Pulse 94 09/14/23 09:00 Resp 17 09/14/23 07:00 BP 112/67 09/14/23 09:00 Pulse Ox 90 09/14/23 06:00 O2 Del Method Room Air 09/13/23 04:00 O2 Flow Rate 4 09/11/23 19:15 09/13/23 09/14/23 09/14/23 22:59 06:59 14:59 Intake Total 170 / 290 300 / 300 Output Total 300 / 400 175 / 575 Balance -130 / -110 -175 / -285 300 / 300 Weight last 48 hrs Weight 60.781 kg Physical Exam Urinary Catheter Management: Mendoza: Cath Placed During This Visit: yes Reason for Continuing Indwelling Catheter: Accurate Measurement of Urinary Output in Critically Ill Patients Urinary Catheter Date of Insertion: 09/11/23 Urinary Catheter Time of Insertion: 22:00 Data NPU 09/14/23 04:50 09/14/23 04:50 Micro: Microbiology 09/11/23 19:37 Urine Culture - Final Urine,Clean Catch Escherichia coli Microbiology 09/11/23 19:37 Urine,Clean Catch Urine Culture - Final Escherichia coli A&P Assessment and plan (1) Altered mental status: Patient appears better regarding aggression. Continue sertraline and routine low dose risperidone bid to target agitation. Patient has significant dementia, unable to care for self and requires guardianship and placement in assisted living facility or detention care facility. (2) Dementia: Qualifiers: Dementia behavioral or psychological symptom: without behavioral, psychotic, or mood disturbance or anxiety Dementia severity: mild Dementia type: unspecified type Qualified Code(s): F03.A0 - Unspecified dementia, mild, without behavioral disturbance, psychotic disturbance, mood disturbance, and anxiety (3) UTI (urinary tract infection): Continue Rocephin. Reviewed urine culture. More than 100,000 gram-negative rods. (4) Pulmonary edema: Reviewed vitals. She is saturating well on room air, no signs of pulmonary edema on exam. Reassess. Can move out of ICU to medical floor. Plan ? Full code ? Lovenox for DVT prophylaxis Attestations NPU Medical Necessity Statement*: Placement at half-way/HALFWAY may be warranted. Patient not able to return home. She continues to require medical treatment. in hospital. Coding Level of Care Code Acute Code for [facility] Fwd Diagnoses Altered mental status R41.82 Dementia F03.A0 Dementia behavioral or psychological symptom: without behavioral, psychotic, or mood disturbance or anxiety Dementia severity: mild Dementia type: unspecified type UTI (urinary tract infection) N39.0 Pulmonary edema J81.1
[2023-09-14] MEDS: OLANZapine 5 mg TABLET PO (12:12)
[2023-09-14] MEDS: LORazepam 2 mg/mL INJ 10 mL MDV 1 MG IVP ×2 (12:57→16:29)
--- NOTE | 2023-09-14 12:58 | PC.NURSE ---
severe agitation noted ativan given after zyprexa not helped sitter at bedside
--- NOTE | 2023-09-14 15:57 | PC.NURSE ---
pt refused to have leads on for heart monitor ,, defered at this time
--- NOTE | 2023-09-14 16:32 | PC.NURSE ---
daughter here for visiting time awaken pt who then became agitated when daughter left and attempt to move upstairs.. combative and very confused wanting to stay with the kittens
[2023-09-14] MEDS: haloperidol inj 5 mg/mL INJ 1 mL 1 MG IM (16:57)
[2023-09-14] MEDS: cefTRIAXone 1,000 MG in sodium chloride 0.9% (plus) 50 ML 100 MG IV (20:23)
--- NOTE | 2023-09-14 21:16 | P.PN_ITS ---
Subjective 2 Subjective: Follow-up in the chair. Does not remember me. Not oriented to place or time. Conversant, although trails off and loses train of thought. Again states wants to go home. Vitals/I&O/Wt Last Vital Signs Temp 97.6 F 09/14/23 19:25 Pulse 83 09/14/23 19:25 Resp 20 H 09/14/23 19:25 BP 165/89 09/14/23 19:25 Pulse Ox 93 09/14/23 19:25 O2 Del Method Room Air 09/14/23 19:25 O2 Flow Rate 4 09/11/23 19:15 09/14/23 09/14/23 09/14/23 06:59 14:59 22:59 Intake Total 650 / 650 50 / 700 Output Total 175 / 575 Balance -175 / -285 650 / 650 50 / 700 Weight last 48 hrs Weight 60.781 kg Physical Exam 2 Narrative: Accompanied by one-to-one sitter Const: COMMON NORMALS: negative for patient oriented x3 GENERAL APPEARANCE: cooperative ORIENTATION/CONSCIOUSNESS: Yes awake HENMT: COMMON NORMALS: oropharynx normal Neck/C-Spine: COMMON NORMALS: no JVD Resp: COMMON NORMALS: normal respiratory effort and clear to auscultation bilaterally AUSCULTATION: clear to auscultation bilaterally Cardio: COMMON NORMALS: no JVD, regular rhythm, S1 normal heart sound present, S2 normal heart sound present and No murmurs present (Cardio) RHYTHM: regular rhythm HEART SOUNDS: S1 normal heart sound present and S2 normal heart sound present GI: COMMON NORMALS: Normal to inspection, nondistended, normoactive bowel sounds present, Soft to palpation and non-tender PALPATION: Yes Soft to palpation Extremity: COMMON NORMALS: no joint enlargement and no pedal edema Neuro: COMMON NORMALS: negative for patient oriented x3 Skin: COMMON NORMALS: no rashes or lesions noted GENERAL SKIN EXAM: no rashes or lesions noted Urinary Catheter Management: Mendoza: Cath Placed During This Visit: yes Reason for Continuing Indwelling Catheter: Accurate Measurement of Urinary Output in Critically Ill Patients Urinary Catheter Date of Insertion: 09/11/23 Urinary Catheter Time of Insertion: 22:00 Data 09/14/23 04:50 09/14/23 04:50 Micro: Microbiology 09/11/23 19:37 Urine Culture - Final Urine,Clean Catch Escherichia coli A&P Assessment and plan (1) Altered mental status: She is awake and alert, interacting, not oriented. Unable to tell me anything about her medical conditions. Later on also becoming severely agitated, combative with staff. Received Ativan, without response, received 1 mg Haldol. Subsequently still combative, repeat IM Haldol 2mg requested. Will stop Ativan in case he continues to disinhibiting her more. As per discussion with psychiatry she is started on scheduled low-dose risperidone. Continue. Continue one-to-one sitter. At risk of QT prolongation with antipsychotics. Will request follow-up EKG. Reviewed vitals, CBC, BMP. Continue treatment of UTI. Reviewed culture, noted pansensitive E. coli. Reviewed case management associate note, they have reached out to several [facility] psychiatric facilities. Daughter is aware of her medical problems, will be seeking guardianship. Psychiatry adjusting her antipsychotic medication. Has not made any threats today. He is more alert. Has not moved out of ICU due to lack of sitter. Discussed with case management associate consideration of geriatric psychiatric admission. Reviewed psychiatry note. Continue treatment of UTI. Reassess mental status. Fall precautions. With underlying dementia with superimposed acute metabolic encephalopathy secondary to urinary tract infection. Continues on sertraline. (2) Dementia: Qualifiers: Dementia behavioral or psychological symptom: without behavioral, psychotic, or mood disturbance or anxiety Dementia severity: mild Dementia type: unspecified type Qualified Code(s): F03.A0 - Unspecified dementia, mild, without behavioral disturbance, psychotic disturbance, mood disturbance, and anxiety (3) UTI (urinary tract infection): Continue Rocephin. Reviewed urine culture, growing E. coli. Continue ceftriaxone. (4) Pulmonary edema: Reviewed vitals. She is saturating well on room air, no signs of pulmonary edema on exam. Reassess. Can move out of ICU to medical floor. Plan ? Full code ? Lovenox for DVT prophylaxis Attestations 2 Medical Necessity Statement*: Continue admission for assessment management of acute encephalopathy, superimposed on dementia, UTI in a lady of advanced age. Diagnoses Altered mental status R41.82 Dementia F03.A0 Dementia behavioral or psychological symptom: without behavioral, psychotic, or mood disturbance or anxiety Dementia severity: mild Dementia type: unspecified type UTI (urinary tract infection) N39.0 Pulmonary edema J81.1
[2023-09-15 04:00] VITALS: BP 158/86; PULSE 66; RESP 22; TEMP 36.3; O2SAT 93
[2023-09-15 06:01] LABS: Basophils % 0.3 %; Eosinophils # 0.1 10^3/uL (0.0-0.8); Eosinophils % 1.8 %; Hematocrit 39.5 % (36-47); Lymphocytes # 1.9 10^3/uL (0.8-4.8); Lymphocytes % 25.2 %; Mean Corpuscular HGB Conc 32.4 g/dL (30-55); Mean Corpuscular Hemoglobin 31.6 pg (27-33); Mean Corpuscular Volume 97.5 fl (85-98); Mean Platelet Volume 11.8 fL (7.4-10.4); Monocytes # 0.8 10^3/uL (0.2-0.9); Monocytes % 10.9 %; Neutrophils # 4.68 10^3/uL (1.8-7.7); Neutrophils % 61.5 %; Nucleated Red Blood Cells % 0 %; Platelet Count 158 10^3/cmm (157-399); Red Blood Count 4.05 10^6/uL (3.85-5.65); Red Cell Distribution Width 13.8 % (12.1-15.1); White Blood Count 7.61 10^3/uL (3.29-11.43)
[2023-09-15 06:15] LABS: Anion Gap 12.6 (5-19); Blood Urea Nitrogen 27 mg/dL (8-23); Calcium 9.1 mg/dL (8.5-10.5); Carbon Dioxide 28 mmol/L (22-29); Chloride 105 mmol/L (98-107); Creatinine Clr Calc Pharmacy 38.2259; Glucose 101 mg/dL (65-115); Osmolality Calculated 297 mOsm/kg (285-295); Potassium 4.6 mmol/L (3.5-5.1); Sodium 141 mmol/L (136-145)
[2023-09-15 08:00] VITALS: BP 162/86; PULSE 82; RESP 18; TEMP 36.4; O2SAT 94
--- NOTE | 2023-09-15 09:54 | ECG_ITS ---
[facility] Test Date: 2023-09-15 Pat Name: Tara Alvarez Department: Room: 256 Gender: Female Telephone Lineman: : 1940 Requested By: Robert Minaya Order Number: [id number] Reading MD: Glenn Solo M.D. Measurements Intervals [place] Rate: 77 P: 0 NE: 0 QRS: 1 QRSD: 90 T: 93 QT: 389 QTc: 442 Interpretive Statements ATRIAL FIBRILLATION NONSPECIFIC ST & T-WAVE ABNORMALITY Compared to ECG 09/12/2023 02:19:22 T-wave abnormality now present Myocardial infarct finding no longer present Electronically Signed On 09-15-2023 22:36:04 CDT by Glenn Solo M.D. [email or web address]
[2023-09-15 12:00] VITALS: BP 134/88; PULSE 74; RESP 17; TEMP 36.6; O2SAT 97
[2023-09-15 16:00] VITALS: BP 128/69; PULSE 78; RESP 18; TEMP 36.7; O2SAT 95
[2023-09-15] MEDS: risperiDONE 0.25 mg Tablet 0.5 MG PO (17:22)
[2023-09-15 20:00] VITALS: BP 104/69; PULSE 80; RESP 16; TEMP 36.9; O2SAT 95
[2023-09-15] MEDS: cefTRIAXone 1,000 MG in sodium chloride 0.9% (plus) 50 ML 100 MG IV (20:07)
--- NOTE | 2023-09-15 20:24 | PM.PN ---
Subjective Subjective: She is resting this morning. Denies pain or discomfort. Not answering my questions. Vitals/I&O/Wt Last Vital Signs Temp 98.4 F 09/15/23 20:00 Pulse 80 09/15/23 20:00 Resp 16 09/15/23 20:00 BP 104/69 09/15/23 20:00 Pulse Ox 95 09/15/23 20:00 O2 Del Method Room Air 09/15/23 20:00 O2 Flow Rate 4 09/11/23 19:15 09/15/23 09/15/23 09/15/23 06:59 14:59 22:59 Intake Total 0 / 700 120 / 120 100 / 220 Output Total 175 / 175 150 / 150 Balance -175 / 525 120 / 120 -50 / 70 Weight last 48 hrs Weight 58.23 kg Weight 60.781 kg Physical Exam Narrative: Accompanied by one-to-one sitter Const: COMMON NORMALS: negative for patient oriented x3 GENERAL APPEARANCE: cooperative ORIENTATION/CONSCIOUSNESS: Yes awake HENMT: COMMON NORMALS: oropharynx normal Neck/C-Spine: COMMON NORMALS: no JVD Resp: COMMON NORMALS: normal respiratory effort and clear to auscultation bilaterally AUSCULTATION: clear to auscultation bilaterally Cardio: COMMON NORMALS: no JVD, regular rhythm, S1 normal heart sound present, S2 normal heart sound present and No murmurs present (Cardio) RHYTHM: regular rhythm HEART SOUNDS: S1 normal heart sound present and S2 normal heart sound present GI: COMMON NORMALS: Normal to inspection, nondistended, normoactive bowel sounds present, Soft to palpation and non-tender PALPATION: Yes Soft to palpation Extremity: COMMON NORMALS: no joint enlargement and no pedal edema Neuro: COMMON NORMALS: negative for patient oriented x3 Skin: COMMON NORMALS: no rashes or lesions noted GENERAL SKIN EXAM: no rashes or lesions noted Urinary Catheter Management: Mendoza: Cath Placed During This Visit: yes Reason for Continuing Indwelling Catheter: Other Urinary Catheter Date of Insertion: 09/11/23 Urinary Catheter Time of Insertion: 22:00 Data 09/15/23 04:56 09/15/23 04:56 A&P Assessment and plan (1) Altered mental status: She had a difficult night yesterday evening, resting this morning. Denies pain or discomfort. States I just want to stay in bed a little longer . Obtaining history from one-to-one sitter, she has not had agitation today. Not answering my questions. Continue one-to-one sitter. Reviewed vitals, CBC, BMP. At risk of QT prolongation with antipsychotics. Reviewed repeat EKG. creatinine clearance 38 mL/min. Repeat additional EKG. Continue treatment of UTI. Reviewed culture, noted pansensitive E. coli. Reviewed piano case maker note, they have reached out to several [facility] psychiatric facilities. Daughter is aware of her medical problems, will be seeking guardianship. Psychiatry adjusting her antipsychotic medication. Has not made any threats today. He is more alert. Has not moved out of ICU due to lack of sitter. Discussed with piano case maker consideration of geriatric psychiatric admission. Reviewed psychiatry note. Continue treatment of UTI. Reassess mental status. Fall precautions. With underlying dementia with superimposed acute metabolic encephalopathy secondary to urinary tract infection. Continues on sertraline. (2) Dementia: Qualifiers: Dementia behavioral or psychological symptom: without behavioral, psychotic, or mood disturbance or anxiety Dementia severity: mild Dementia type: unspecified type Qualified Code(s): F03.A0 - Unspecified dementia, mild, without behavioral disturbance, psychotic disturbance, mood disturbance, and anxiety (3) UTI (urinary tract infection): Continue Rocephin. Reviewed urine culture, growing E. coli. Continue ceftriaxone. (4) Pulmonary edema: Reviewed vitals. She is saturating well on room air, no signs of pulmonary edema on exam. Reassess. Can move out of ICU to medical floor. Plan ? Full code ? Lovenox for DVT prophylaxis Attestations Medical Necessity Statement*: Continue admission for assessment management of acute encephalopathy, superimposed on dementia, UTI in a lady of advanced age. , Moderate MDM includes amount and/or complexity of data reviewed/ordered [ resulted lab(s)/test(s), ordered lab(s)/test(s) and independent historian] as documented and High MDM includes described risk of complication, morbidity or mortality of management as documented Diagnoses Altered mental status R41.82 Dementia F03.A0 Dementia behavioral or psychological symptom: without behavioral, psychotic, or mood disturbance or anxiety Dementia severity: mild Dementia type: unspecified type UTI (urinary tract infection) N39.0 Pulmonary edema J81.1
[2023-09-16] VITALS: BP 96/65; PULSE 68; RESP 16; TEMP 36.5; O2SAT 93
[2023-09-16 04:00] VITALS: BP 125/73; PULSE 66; RESP 17; TEMP 36.5; O2SAT 94
[2023-09-16] MEDS: sertraline 50 mg Tablet PO (09:00)
[2023-09-16] MEDS: risperiDONE 0.25 mg Tablet 0.5 MG PO ×2 (09:00→17:52)
--- NOTE | 2023-09-16 09:00 | ECG_ITS ---
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 Measurements Intervals [place] Rate: 73 P: 0 [place]: 0 QRS: 65 QRSD: 97 T: -20 QT: 401 QTc: 443 Interpretive Statements ATRIAL FIBRILLATION NONSPECIFIC ST & T-WAVE ABNORMALITY Compared to ECG 09/15/2023 09:54:17 No significant changes Electronically Signed On 09-16-2023 18:07:51 CDT by Glenn Solo M.D. [id number]
[2023-09-16] MEDS: enoxaparin 40 mg/0.4 mL Syringe SUBCUT (09:01)
--- NOTE | 2023-09-16 11:59 | PC.SOCIAL ---
IMM Update pg 2 of IMM not updated @ this time. Patient is currently on 96 hour hold. Copy left @ bedside and copy dated, initialed and placed in chart.
[2023-09-16 12:02] VITALS: BP 138/86; PULSE 84; RESP 17; TEMP 36.4; O2SAT 95
[2023-09-16 15:22] VITALS: BP 115/78; PULSE 81; RESP 16; TEMP 36.5; O2SAT 93
[2023-09-16] MEDS: acetaminophen 325 mg Tablet 650 MG PO (15:27)
--- NOTE | 2023-09-16 15:50 | P.PN_ITS ---
Subjective 2 Subjective: Hospital course, labs appreciated. Sitter at bedside. No further episode of agitation. Laying comfortably in bed. Remains hemodynamically stable and afebrile. Vitals/I&O/Wt Last Vital Signs Temp 97.6 F 09/16/23 12:02 Pulse 84 09/16/23 12:02 Resp 17 09/16/23 12:02 BP 138/86 09/16/23 12:02 Pulse Ox 95 09/16/23 12:02 O2 Del Method Room Air 09/16/23 12:02 O2 Flow Rate 4 09/11/23 19:15 09/16/23 09/16/23 09/16/23 06:59 14:59 22:59 Intake Total 240 / 240 Output Total 100 / 350 Balance -100 / -80 240 / 240 Weight last 48 hrs Weight 57.691 kg Weight 58.23 kg Physical Exam 2 Narrative: General: No acute distress, AO x 1-2, no episode of agitation, wakes up to verbal stimulus HEENT: PERRLA, pupils bilaterally equal and reactive Chest: Normal vesicular breath sounds, no added sounds, equal good air entry bilaterally CVS: S1-S2 regular, no murmurs, no tachycardia, no gallops, no rubs Abdomen: Soft, nontender, no organomegaly, bowel sounds present Neuro: No focal deficits, no facial deformity, AO x3, power 5/5 in all limbs Urinary Catheter Management: Mendoza: Cath Placed During This Visit: yes Reason for Continuing Indwelling Catheter: Other Urinary Catheter Date of Insertion: 09/11/23 Urinary Catheter Time of Insertion: 22:00 Data 09/15/23 04:56 09/15/23 04:56 A&P Assessment and plan (1) Altered mental status: Most likely worsening of baseline dementia in setting of UTI, worsening of baseline depression. Episodes of agitation. Appreciate psychiatry recommendations. Patient is not safe to make her own medical decisions for now. Daughter is seeking guardianship. As per psychiatry team patient would benefit with [facility] care for now. Continue with risperidone 0.5 mg twice daily along with olanzapine 5 mg p.o. every 12 hours as needed. Sitter at bedside. Continue with home dose of sertraline. (2) UTI (urinary tract infection): Appreciate urine culture. Pansensitive E. coli. Continue with IV ceftriaxone to finish a 5-day course. Last dose on 09/15 night. (3) Pulmonary edema: Resolved. Currently on room air. Laying comfortably in bed. (4) Anxiety and depression: (5) Suicidal ideation: (6) Irritability and anger: (7) Dementia in other diseases classified elsewhere, unspecified severity, with agitation: Plan Regular diet ? Full code ? Lovenox for DVT prophylaxis Discharge plan: Patient is not deemed safe to make her own medical decisions or live by herself. Daughter is seeking guardianship. Patient would benefit with fracture to [facility] psych unit. Case management alerted. Attestations 2 Medical Necessity Statement*: Requires further hospitalization for management of altered mental status in setting of worsening baseline dementia, suicidal ideation while safe discharge planning is sought Diagnoses Altered mental status R41.82 UTI (urinary tract infection) N39.0 Pulmonary edema J81.1 Anxiety and depression F41.9; F32.9 Suicidal ideation R45.851 Irritability and anger R45.4 Dementia in other diseases classified elsewhere, unspecified severity, with agitation F02.811
--- NOTE | 2023-09-16 17:22 | P.NPUPN_ITS ---
Subjective NPU 2 Subjective: 83-year-old female with dementia was mor e awake and alert today. Patient was on and did not have any aggression while taking her routine risperidone routinely with no prn medication given and patient having adequate sleep. She had been eating better and had continued to insist that she returns home. Mental Status Exam 2 MSE Comments: Patient is a thin white female who appeared her stated age and was awake and alert today. Her speech was less DrMarcelino Cordero productive, normal in volume and spontaneous at times. She responded to her name but struggled with naming objects. She continued to report wanting to go home. There was continued evidence of apraxia. There was evidence of anomia. She was not alert to place, date, month,year, season or day of week. Her mood was described as allright. Her affect was restricted. Her insight is impaired. Her judgment is impaired. Her impulse control remained poor. Vitals/I&O/Wt Last Vital Signs Temp 97.7 F 09/16/23 15:22 Pulse 81 09/16/23 15:22 Resp 16 09/16/23 15:22 BP 115/78 09/16/23 15:22 Pulse Ox 93 09/16/23 15:22 O2 Del Method Room Air 09/16/23 15:22 O2 Flow Rate 4 09/11/23 19:15 09/16/23 09/16/23 09/16/23 06:59 14:59 22:59 Intake Total 240 / 240 Output Total 100 / 350 Balance -100 / -80 240 / 240 Weight last 48 hrs Weight 57.691 kg Weight 58.23 kg Physical Exam 2 Urinary Catheter Management: Mendoza: Cath Placed During This Visit: yes Reason for Continuing Indwelling Catheter: Other Urinary Catheter Date of Insertion: 09/11/23 Urinary Catheter Time of Insertion: 22:00 Data NPU 09/15/23 04:56 09/15/23 04:56 A&P Assessment and plan (1) Altered mental status: Patient appears better regarding aggression. Continue sertraline and routine low dose risperidone .5mg bid to target agitation. Patient has significant dementia, hopeful that guardianship can be obtained and patient be sent to Memory care facility. (2) Dementia: Qualifiers: Dementia behavioral or psychological symptom: with agitation Dementia severity: moderate Dementia type: unspecified type Qualified Code(s): F03.B11 - Unspecified dementia, moderate, with agitation (3) UTI (urinary tract infection): Continue Rocephin. Reviewed urine culture. More than 100,000 gram-negative rods. (4) Pulmonary edema: Reviewed vitals. She is saturating well on room air, no signs of pulmonary edema on exam. Reassess. Can move out of ICU to medical floor. Plan ? Full code ? Lovenox for DVT prophylaxis Attestations NPU 2 Medical Necessity Statement*: Patient may require inpatient stay at Geropsychiatry facility with current aggression if continued behavior problems do not dissipate. Coding Level of Care Code Acute Code for g Fwd Diagnoses Altered mental status R41.82 Moderate dementia with agitation, unspecified dementia type F03.B11 Dementia behavioral or psychological symptom: with agitation Dementia severity: moderate Dementia type: unspecified type UTI (urinary tract infection) N39.0 Pulmonary edema J81.1
[2023-09-16 20:00] VITALS: BP 94/64; PULSE 70; RESP 18; TEMP 36.6; O2SAT 94
[2023-09-16] MEDS: cefTRIAXone 1,000 MG in sodium chloride 0.9% (plus) 50 ML 100 MG IV (20:59)
[2023-09-16] MEDS: OLANZapine 10 mg VIAL 5 MG IM ×2 (21:36→21:44)
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
[2023-09-17 04:00] VITALS: BP 124/80; PULSE 68; RESP 17; TEMP 36.6; O2SAT 92
--- NOTE | 2023-09-17 07:25 | PC.NURSE ---
PATIENT BEHAVIORS after several hours of sleep s/p IM injection of zyprexa the patient awoke and proceeded to order picker where she left off with behaviors. patient continued to be aggressive, combative, and abusive to staff and expanded her behaviors to spitting on staff as well. patient was not cooperative, resistant to care, and unable to be reorientated or redirected. verbal threats were made to staff when attempting to help and care for the patient. despite explaining in advance to patient the things that needed to be done, patient would not cooperate. patient required changing after incontinence and proceeded to hit and kick at staff with attempts at biting and spitting in staff's faces.
[2023-09-17 07:30] VITALS: BP 150/81; PULSE 78; RESP 17; TEMP 36.6; O2SAT 92
[2023-09-17] MEDS: sertraline 50 mg Tablet PO (08:33)
[2023-09-17] MEDS: OLANZapine 5 mg TABLET PO (08:33)
[2023-09-17] MEDS: risperiDONE 0.25 mg Tablet 0.5 MG PO (08:33)
[2023-09-17] MEDS: enoxaparin 40 mg/0.4 mL Syringe SUBCUT (08:34)
--- NOTE | 2023-09-17 10:08 | ECG_ITS ---
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 Measurements Intervals [place] Rate: 70 P: 0 [place]: 0 QRS: 2 QRSD: 88 T: 127 QT: 368 QTc: 399 Interpretive Statements ATRIAL FIBRILLATION ST DEVIATION AND MODERATE T-WAVE ABNORMALITY, CONSIDER LATERAL ISCHEMIA [-0.1+ mV T-WAVE IN I/aVL/V5/V6] Compared to ECG 09/16/2023 09:01:10 Possible ischemia now present T-wave abnormality still present Electronically Signed On 09-17-2023 17:50:36 CDT by Xavier Ortiz M.D. [id number]
[2023-09-17] MEDS: haloperidol inj 5 mg/mL INJ 1 mL 1 MG IM (11:45)
[2023-09-17 12:00] VITALS: BP 124/76; PULSE 79; RESP 16; TEMP 36.4
--- NOTE | 2023-09-17 12:30 | W.PM.BREST ---
Face to Face: Restrn/Seclusion Events leading up to initiation: Verbalizing threat to self or others, Demonstrating self-destructive behavior (cutting, hitting banegas etc.) and Combative/Striking out at staff or others Evaluation of patient's immediate situation: Alert and oriented and Signs of psychological distress Patient reaction since intervention applied: Behaviors/threats have lessened, but still present Recent labs reviewed: No Review of medications: Yes Patient's current medical/behavioral condition: No new concerns since last ROS Need for restraint or seclusion is: Continued Attending notified: Attending completed assessment
[2023-09-17] MEDS: haloperidol inj 5 mg/mL INJ 1 mL 2.5 MG IM (13:15)
--- NOTE | 2023-09-17 13:25 | W.PM.BREST ---
Face to Face: Restrn/Seclusion Events leading up to initiation: Verbalizing threat to self or others and Combative/Striking out at staff or others Evaluation of patient's immediate situation: Alert and oriented and Signs of psychological distress Patient reaction since intervention applied: Behaviors/threats have lessened, but still present Recent labs reviewed: No Review of medications: Yes Patient's current medical/behavioral condition: No new concerns since last ROS Need for restraint or seclusion is: Continued Attending notified: Attending completed assessment
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
[2023-09-17 16:41] VITALS: BP 124/76; PULSE 79; RESP 16; TEMP 36.4; O2SAT 96
[2023-09-17] MEDS: OLANZapine 5 mg ODT PO (17:46)
[2023-09-17] MEDS: acetaminophen 325 mg Tablet 650 MG PO ×2 (17:46→21:49)
--- NOTE | 2023-09-17 20:08 | PC.NURSE ---
21 Day hold paperwork served to patient from the [facility]'s department with this nurse, patient care nurse, Carmen and charge nurse, Maribell present. Pt calm at this time, offered opportunity to ask questions. Copy of the paperwork placed in the patient chart and left at the bedside for the patient.
[2023-09-17 22:12] VITALS: BP 169/72; PULSE 70; RESP 18; O2SAT 94
[2023-09-18 04:00] VITALS: BP 130/65; PULSE 65; RESP 16; O2SAT 95
--- NOTE | 2023-09-18 08:04 | PC.SOCIAL ---
IMM Update pg 2 of IMM not updated @ this time. Patient is pending [facility] placement. 21 day hold has been initiated and daughter is pursuing guardianship.
[2023-09-18] MEDS: enoxaparin 40 mg/0.4 mL Syringe SUBCUT (11:33)
[2023-09-18] MEDS: OLANZapine 5 mg ODT PO ×2 (11:34→17:24)
--- NOTE | 2023-09-18 13:55 | P.PN_ITS ---
Subjective 2 Subjective: Restraints were removed yesterday. Patient has remained more calm without any episode of agitation overnight. Has not received any as needed medication for agitation. Vitals/I&O/Wt Last Vital Signs Temp 97.6 F 09/17/23 16:41 Pulse 65 09/18/23 04:00 Resp 16 09/18/23 04:00 BP 130/65 09/18/23 04:00 Pulse Ox 95 09/18/23 04:00 O2 Del Method Room Air 09/18/23 04:00 O2 Flow Rate 4 09/11/23 19:15 09/17/23 09/18/23 09/18/23 22:59 06:59 14:59 Intake Total 480 / 840 120 / 960 Balance 480 / 840 120 / 960 Weight last 48 hrs Weight 59.477 kg Weight 60.781 kg Physical Exam 2 Narrative: General: No acute distress, AO x 1-2, no episode of agitation, wakes up to verbal stimulus HEENT: PERRLA, pupils bilaterally equal and reactive Chest: Normal vesicular breath sounds, no added sounds, equal good air entry bilaterally CVS: S1-S2 regular, no murmurs, no tachycardia, no gallops, no rubs Abdomen: Soft, nontender, no organomegaly, bowel sounds present Neuro: No focal deficits, no facial deformity, AO x3, power 5/5 in all limbs Urinary Catheter Management: Mendoza: Cath Placed During This Visit: yes, but has since been removed by the nurse Reason for Continuing Indwelling Catheter: Decision to DC Catheter Urinary Catheter Date of Insertion: 09/11/23 Urinary Catheter Time of Insertion: 22:00 Date Urinary Catheter Removed: 09/16/23 Time Urinary Catheter Discontinued: 17:55 Data 09/15/23 04:56 09/15/23 04:56 A&P Assessment and plan (1) Altered mental status: Most likely worsening of baseline dementia in setting of UTI, worsening of baseline depression. Episodes of agitation. Appreciate psychiatry recommendations. Patient is not safe to make her own medical decisions for now. Daughter is seeking guardianship. Appreciate psychiatric recommendations. Risperidone withheld Psychiatric treatment switched over to olanzapine Zydis 5 mg p.o. twice daily. Patient is not able to take oral medication will give IM as needed. Continue with home sertraline as possible. (2) UTI (urinary tract infection): Appreciate urine culture. Pansensitive E. coli. Finished course of IV antibiotics with ceftriaxone. Last dose on 09/15. (3) Pulmonary edema: Resolved. Currently on room air. Laying comfortably in bed. (4) Anxiety and depression: (5) Suicidal ideation: (6) Irritability and anger: (7) Dementia in other diseases classified elsewhere, unspecified severity, with agitation: Plan Regular diet ? Full code ? Lovenox for DVT prophylaxis Discharge plan: Patient is not deemed safe to make her own medical decisions or live by herself. Daughter is seeking guardianship. Patient would benefit with fracture to [facility]. Case management alerted. Transition care over to psychiatric team. Medicine will continue to follow as consult. Discussed in detail with Dr. Miller. Is agreeable. Attestations 2 Medical Necessity Statement*: Requires further hospitalization while safe discharge planning for [facility] placement is sought in a patient admitted with episodes of agitation in setting of depression and irritability, 21-day hold Diagnoses Altered mental status R41.82 UTI (urinary tract infection) N39.0 Pulmonary edema J81.1 Anxiety and depression F41.9; F32.9 Suicidal ideation R45.851 Irritability and anger R45.4 Dementia in other diseases classified elsewhere, unspecified severity, with agitation F02.811
[2023-09-18 16:00] VITALS: BP 119/77; PULSE 114; RESP 17; TEMP 37
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
[2023-09-18 19:27] VITALS: BP 120/76; PULSE 60; RESP 16; TEMP 37; O2SAT 95
[2023-09-18 23:19] VITALS: BP 120/65; PULSE 66; RESP 16; TEMP 37; O2SAT 84
--- NOTE | 2023-09-19 01:53 | PC.NURSE ---
Unable to hourly round on patient due to acute patient status declining in room 258. One-on-one sitter at bedside.
[2023-09-19 04:24] VITALS: BP 110/60; PULSE 65; RESP 16; O2SAT 95
[2023-09-19] MEDS: OLANZapine 10 mg VIAL 5 MG IM ×2 (05:54→07:00)
--- NOTE | 2023-09-19 05:55 | PC.NURSE ---
Patient becoming agitated and trying to leave. PRN Zyprexa given.
[2023-09-19 06:16] LABS: Alanine Aminotransferase 12 U/L (0-33); Albumin Level 3.1 g/dL (3.5-5.2); Alkaline Phosphatase 74 U/L (35-105); Anion Gap 10.9 (5-19); Aspartate Amino Transferase 17 U/L (0-32); Blood Urea Nitrogen 20 mg/dL (8-23); Calcium 8.8 mg/dL (8.5-10.5); Carbon Dioxide 26 mmol/L (22-29); Chloride 108 mmol/L (98-107); Creatinine Clr Calc Pharmacy 48.1872; Globulin 2.7 g/dL (1.3-4.6); Glucose 95 mg/dL (65-115); Osmolality Calculated 294 mOsm/kg (285-295); Potassium 3.9 mmol/L (3.5-5.1); Sodium 141 mmol/L (136-145); Total Bilirubin 0.4 mg/dL (0.15-1.2); Total Protein 5.8 g/dL (6.6-8.7)
--- NOTE | 2023-09-19 07:00 | PC.NURSE ---
Dr. Sanchez notified that patient received PRN dose of Zyprexa at 05:54 and that she is still agitated and trying to leave. One time dose of 5 mg IM Zyprexa ordered and administered.
[2023-09-19 08:00] VITALS: BP 152/75; PULSE 68; RESP 17; TEMP 36.5; O2SAT 95
[2023-09-19] MEDS: OLANZapine 5 mg ODT PO ×2 (09:29→17:50)
[2023-09-19] MEDS: enoxaparin 40 mg/0.4 mL Syringe SUBCUT (09:29)
[2023-09-19] MEDS: acetaminophen 325 mg Tablet 650 MG PO ×3 (09:29→22:58)
[2023-09-19 12:00] VITALS: BP 136/74; PULSE 95; RESP 16; TEMP 36.6; O2SAT 91
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
[2023-09-19 16:00] VITALS: BP 142/85; PULSE 71; RESP 16; TEMP 36.5; O2SAT 95
[2023-09-19] MEDS: ziprasidone 20 mg/mL SDV IM (19:26)
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
--- NOTE | 2023-09-19 19:37 | PC.NURSE ---
pt extremely confused, agitated, and aggresive, pt with 1:1 staff wandering the halls and attempts to enter other pt rooms, becomes aggresive and violent when redirected, one time IM ashlee administered IM, pt back in room, speaking with daughter.
[2023-09-19] MEDS: water for injection-sterile 10 ML (19:41)
[2023-09-19] MEDS: ziprasidone 20 mg/mL SDV (19:41)
[2023-09-20 00:34] VITALS: BP 148/66; PULSE 86; RESP 18; TEMP 36.7; O2SAT 92
[2023-09-20 08:36] VITALS: BP 129/74; PULSE 80; RESP 18; TEMP 36.6; O2SAT 95
[2023-09-20] MEDS: enoxaparin 40 mg/0.4 mL Syringe SUBCUT (09:30)
[2023-09-20] MEDS: OLANZapine 5 mg ODT PO ×2 (09:30→17:43)
[2023-09-20 12:00] VITALS: BP 135/82; PULSE 75; RESP 18; TEMP 36.8; O2SAT 95
--- NOTE | 2023-09-20 13:48 | PC.SOCIAL ---
IMM Update pg 2 of IMM updated and reviewed w/ patients daughter who has been assigned guardianship. Copy left @ bedside. Copy dated, initialed and placed in chart.
--- NOTE | 2023-09-20 15:33 | P.PN_ITS ---
Subjective 2 Subjective: No acute events overnight. Patient did receive 1 dose of extra Zyprexa overnight. Seems stable and comfortable today in the morning. Not combative. Vitals/I&O/Wt Last Vital Signs Temp 98.2 F 09/20/23 12:00 Pulse 75 09/20/23 12:00 Resp 18 09/20/23 12:00 BP 135/82 09/20/23 12:00 Pulse Ox 95 09/20/23 12:00 O2 Del Method Room Air 09/20/23 12:00 O2 Flow Rate 4 09/11/23 19:15 09/20/23 09/20/23 09/20/23 06:59 14:59 22:59 Intake Total 0 / 1320.1 960 / 960 Balance 0 / 1320.1 960 / 960 Weight last 48 hrs Weight 61.263 kg Weight 59.477 kg Physical Exam 2 Narrative: General: No acute distress, AO x 1-2, no episode of agitation, wakes up to verbal stimulus HEENT: PERRLA, pupils bilaterally equal and reactive Chest: Normal vesicular breath sounds, no added sounds, equal good air entry bilaterally CVS: S1-S2 regular, no murmurs, no tachycardia, no gallops, no rubs Abdomen: Soft, nontender, no organomegaly, bowel sounds present Neuro: No focal deficits, no facial deformity, AO x3, power 5/5 in all limbs Urinary Catheter Management: Mendoza: Cath Placed During This Visit: yes, but has since been removed by the nurse Reason for Continuing Indwelling Catheter: Decision to DC Catheter Urinary Catheter Date of Insertion: 09/11/23 Urinary Catheter Time of Insertion: 22:00 Date Urinary Catheter Removed: 09/16/23 Time Urinary Catheter Discontinued: 17:55 Data 09/15/23 04:56 09/19/23 05:07 A&P Assessment and plan (1) Altered mental status: Most likely worsening of baseline dementia in setting of UTI, worsening of baseline depression. Episodes of agitation. Appreciate psychiatry recommendations. Patient is not safe to make her own medical decisions for now. Daughter is seeking guardianship. Appreciate psychiatric recommendations. Medications as per psych team. (2) UTI (urinary tract infection): Appreciate urine culture. Pansensitive E. coli. Finished course of IV antibiotics with ceftriaxone. Last dose on 09/15. (3) Pulmonary edema: Resolved. Currently on room air. Laying comfortably in bed. (4) Anxiety and depression: (5) Suicidal ideation: (6) Irritability and anger: (7) Dementia in other diseases classified elsewhere, unspecified severity, with agitation: Plan Regular diet ? Full code ? Lovenox for DVT prophylaxis Discharge plan: Patient is not deemed safe to make her own medical decisions or live by herself. Daughter is seeking guardianship. Patient would benefit with fracture to [facility]. Case management alerted. Plan for the day: Continue treatment as per psychiatric team. Patient is medically stable to be discharged whenever she is able to go to [facility] unit. On discharge from medicine point of view she can continue her metoprolol 25 mg twice daily. Medical reconciliation done. Attestations 2 Medical Necessity Statement*: Patient requires further hospitalization while [facility] unit can be arranged, guardianship can be arranged in a patient with with agitation, altered mental status with combative behavior Diagnoses Altered mental status R41.82 UTI (urinary tract infection) N39.0 Pulmonary edema J81.1 Anxiety and depression F41.9; F32.9 Suicidal ideation R45.851 Irritability and anger R45.4 Dementia in other diseases classified elsewhere, unspecified severity, with agitation F02.811
[2023-09-20 16:13] VITALS: BP 138/74; PULSE 71; RESP 18; TEMP 36.4; O2SAT 97
--- NOTE | 2023-09-20 17:03 | PC.NURSE ---
Report: Report called to Maria R at [facility].
[2023-09-20] MEDS: ziprasidone 20 mg/mL SDV 10 MG IM (19:44)
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
== END 2023-09-20 19:49 | DRG 884 ==
LOC: ER 21:15 → ICU 21:54 → MEDSURG 09-14 16:22
PROVIDERS: Internal Medicine; Student in an Organized Health Care Education/Training Program; Admitting Provider Family Medicine; Emergency Provider Emergency Medicine; PCP Nurse Practitioner; Visit Provider Psychiatry & Neurology Psychiatry
DX: F03.B11 Unspecified dementia, moderate, with agitation (principal); G93.41 Metabolic encephalopathy; J81.1 Chronic pulmonary edema; R45.851 Suicidal ideations; N39.0 Urinary tract infection, site not specified; F03.B4 Unspecified dementia, moderate, with anxiety; F03.B3 Unspecified dementia, moderate, with mood disturbance; F03.B2 Unspecified dementia, moderate, with psychotic disturbance; E53.8 Deficiency of other specified B group vitamins; E78.5 Hyperlipidemia, unspecified; I10 Essential (primary) hypertension; Z86.73 Personal history of transient ischemic attack (TIA), and cerebral infarction without residual deficits; Z86.711 Personal history of pulmonary embolism; B96.20 Unspecified Escherichia coli [E. coli] as the cause of diseases classified elsewhere; Z78.1 Physical restraint status
CPT/HCPCS: 36415; 51702; 70450; 71045; 80048; 80053; 80061; 80306; 80307; 81001; 82140; 82607; 82746; 83036; 83605; 83735; 83880; 84100; 84145; 84439; 84443; 84481; 84484; 85025; 85610; 87077; 87086; 87186; 87426; 87804; 87899; 93005; 96372; 96374; 96375; 96376; 97116; 97161; 99285; C9113; J0360; J0696; J1200; J1630; J1650; J1940; J2060; J2405; J2765; J3486; J3490

== ENCOUNTER → 2023-12-05 11:58 | Outpatient (BNVA) | payer MEDICARE, OTHER, SELFPAY | PROVIDERS: PCP Nurse Practitioner; Visit Provider Nurse Practitioner | DX: F02.811 Dementia in other diseases classified elsewhere, unspecified severity, with agitation (principal) | CPT/HCPCS: 80053 ==

== ENCOUNTER 2024-03-01 14:37 | Emergency (ER) | payer MEDICARE, OTHER, SELFPAY ==
[2024-03-01] VITALS (7 sets, daily range): BP systolic 102–137; BP diastolic 72–94; PULSE 75–97; RESP 18; TEMP 36.8; O2SAT 94–98; BMI 20.9
--- NOTE | 2024-03-01 14:43 | XRR_ITS ---
PROCEDURE INFORMATION: Exam: XR Right Shoulder Exam date and time: 03/01/2024 2:46 PM Age: 83 years old Clinical indication: Right; Patient HX: RT shoulder pain post fall TECHNIQUE: Imaging protocol: Radiologic exam of the right shoulder. Views: 2 or more views. COMPARISON: CR XR chest 1V portable [id number] 09/11/2023 7:46 PM FINDINGS: Bones/joints: There are moderate degenerative changes across the acromioclavicular joint. Generalized osteopenia. Mildly displaced fractures through the lateral aspect of the right clavicle. Soft tissues: There is edema in the soft tissues. XR/XR shoulder RT min 2V* [id number] IMPRESSION: Mildly displaced fractures through the lateral aspect of the right clavicle.
--- NOTE | 2024-03-01 15:17 | ED_ITS ---
HPI - Extremity Problem General: Chief complaint: Extremity Injury, Upper Stated complaint: right shoulder pain s/p fall Time Seen by Provider: 03/01/24 14:48 History of Present Illness: Presents to the ER by EMS with potential fall and melanite hitting her right shoulder in the corner of the bed. Patient is currently on hospice for dementia so cannot provide much of a history. Patient shoulder tender to palpation but no obvious deformity crepitus noted. Related Data Previous Rx's Medication Instructions Recorded nitroglycerin 0.4 mg sublingual 0.4 mg sublingual Q5M PRN CHEST 12/23/20 tablet (Nitrostat) PAINS #50 tabs olanzapine 5 mg tablet See Rx Instructions PO .COMPLEX 12/05/23 #30 tabs olanzapine 7.5 mg tablet 7.5 mg PO .in PM #30 tabs 12/05/23 sertraline 50 mg tablet (Zoloft) 50 mg PO .evening #30 tabs 12/05/23 Allergies Allergy/AdvReac Type Severity Reaction Status Date / Time ciprofloxacin [From Cipro] Allergy Unknown Verified 12/05/23 11:15 codeine Allergy Unknown Verified 12/05/23 11:15 escitalopram [From Lexapro] Allergy Unknown Verified 12/05/23 11:15 irbesartan [From Avapro] Allergy Unknown Verified 12/05/23 11:15 losartan Allergy rash Verified 12/05/23 11:15 nitrofurantoin Allergy Unknown Verified 12/05/23 11:15 [From Macrobid] quinapril [From Accupril] Allergy Unknown Verified 12/05/23 11:15 Sulfa (Sulfonamide Allergy Unknown Verified 12/05/23 11:15 Antibiotics) Review of Systems General: Reports: 10 or more systems reviewed and unremarkable except in HPI and below PFSH ED PFSH: Medical History Pulmonary embolism on long-term anticoagulation therapy Vitamin B12 deficiency Cerebral vascular disease Dementia Hypokalemia Weakness Enrolled in chronic care management Anxiety and depression Ventricular arrhythmia Dyslipidemia History of pulmonary embolism Essential (primary) hypertension Surgical History Hx of breast surgery Chronic obstructive lung disease History of esophageal dilatation History of appendectomy H/O: hysterectomy without BSO Hx of tonsillectomy Family History Mother CAD (coronary artery disease) Cancer Sister CAD (coronary artery disease) Cancer Brother CAD (coronary artery disease) Cancer Father Cancer Chronic kidney disease (CKD) Daughter Cancer Chronic kidney disease (CKD) Family/Other Dementia Diabetes Denies family history of Clotting disorder Suicide Anesthesia complication Bleeding disorder Lung disease Stroke Social History Smoking and tobacco/nicotine status: never used tobacco/nicotine Second hand smoke exposure: No Alcohol intake: never Substance/Drug Use: never Adopted: No Caregiver/support person: No Lives independently: Yes Household members: friend(s) Housing: House Marital status: / Number of children: 1 service: No Current occupational status: retired Pets and animals: Yes Pets & animals: cat(s) and dog(s) Do you think of yourself as: Straight/Heterosexual Current gender identity: Female Physical Exam Const: COMMON NORMALS: no acute distress, average body habitus, healthy appearing, alert and well nourished HENMT: COMMON NORMALS: normocephalic, atraumatic, hearing grossly normal bilaterally, external ears normal, Normal external nose present and moist oral mucous membranes HEAD & SCALP: normocephalic and atraumatic NOSE: Normal external nose present EXTERNAL EAR: Yes external ears normal Neck/C-Spine: COMMON NORMALS: full ROM, no lymphadenopathy, supple, no meningeal signs, no JVD and Thyroid normal THYROID: Thyroid normal Chest: COMMONS NORMALS: normal inspection of the chest and normal palpation of entire chest wall Resp: COMMON NORMALS: normal respiratory effort, No retractions, No use of accessory muscles and clear to auscultation bilaterally AUSCULTATION: clear to auscultation bilaterally Cardio: COMMON NORMALS: no JVD, regular rate, regular rhythm, S1 normal heart sound present, S2 normal heart sound present, No gallops present (Cardio), No clicks present (Cardio), No murmurs present (Cardio) and No rub (Cardio) RATE: regular rate RHYTHM: regular rhythm HEART SOUNDS: S1 normal heart sound present and S2 normal heart sound present GI: COMMON NORMALS: Normal to inspection, nondistended, normoactive bowel sounds present, Soft to palpation, non-tender, No hepatosplenomegaly present and no masses PALPATION: Yes Soft to palpation and Yes No hepatosplenomegaly present Extremity: NARRATIVE EXTREMITY EXAM: Tender to palpate over right anterior shoulder region no obvious step-off crepitus or deformity noted. Neuro: SENSORIUM/ORIENTATION: Yes alert MENINGEAL SIGNS: Yes no meningeal signs Course Vital Signs: Vital signs: Vital Signs Temperature 98.3 F 03/01/24 14:41 Pulse Rate 79 03/01/24 14:41 Respiratory Rate 18 03/01/24 14:41 Blood Pressure 135/94 03/01/24 14:41 Pulse Oximetry 97 03/01/24 14:41 Oxygen Delivery Me thod Room Air 03/01/24 14:41 MDM - Extremity (Nontraumatic) Medical Decision Making X-ray of the right shoulder showed mildly displaced fracture through the right clavicle distally, patient was given 30 mg Toradol IM and will be discharged home to follow-up with Ortho. Medical Records I reviewed the patient's medical records. Lab Data I reviewed the patient's lab results. Radiology Impressions Shoulder X-Ray 03/01/24 14:43 IMPRESSION: Mildly displaced fractures through the lateral aspect of the right clavicle. All radiology interpretation(s) finalized by discharge Discharge Plan Discharge Patient Disposition: Home Clinical Impression: Closed fracture of distal clavicle Qualifiers: Encounter type: initial encounter Fracture alignment: nondisplaced Laterality: right Qualified Code(s): S42.034A - Nondisplaced fracture of lateral end of right clavicle, initial encounter for closed fracture Condition: Stable Prescriptions: No Action olanzapine 5 mg tablet See Rx Instructions PO .COMPLEX Qty: 30 2RF Rx Instructions: 2.5mg at 8AM and 2.5mg 1pm orally; sertraline [Zoloft] 50 mg tablet 50 mg PO .evening Qty: 30 2RF olanzapine 7.5 mg tablet 7.5 mg PO .in PM Qty: 30 2RF nitroglycerin [Nitrostat] 0.4 mg tablet, sublingual 0.4 mg SUBLINGUAL Q5M PRN (Reason: CHEST PAINS) Qty: 50 5RF Discharge Orders: Discharge ED (Routine); Ordered 03/01/24 Ordered By: Adria Gan Referrals: Ed Michael, [facility] [Primary Care Provider] - 1 week Patient Instructions: Opioid Safety, Pain Management, Clavicle Fracture (ED) Activity Restrictions/Additional Instructions: The x-ray showed you broke your right clavicle. You will be referred to Ortho for this please continue your current tramadol for pain as directed. Please follow-up with your family practice physician in the next 7 days for further evaluation treatment as needed. Coding Level of Care Code ED Analytical Chemist for Rony Dwyer
[2024-03-01] MEDS: ketorolac 30 mg/mL INJ IM (16:59)
--- NOTE | 2024-03-02 11:27 | DCPLANNER ---
Message sent ot ortho [id number] follow up - distal Clavicle fracture
== END 2024-03-01 17:27 | disposition home or self-care (01) ==
PROVIDERS: Emergency Provider Emergency Medicine; PCP Nurse Practitioner
DX: S42.034A Nondisplaced fracture of lateral end of right clavicle, initial encounter for closed fracture (principal); F03.90 Unspecified dementia, unspecified severity, without behavioral disturbance, psychotic disturbance, mood disturbance, and anxiety
CPT/HCPCS: 73030; 96372; 99284; J1885